=== PATIENT | male | born 1925 | race Caucasian/White ===

== ENCOUNTER 2016-08-08 11:19 | Inpatient (IN) ==
[~2016-08-08 11:19] MED LIST: Aminoglycoside Consult 1 EACH MC ONE
--- NOTE | 2016-08-08 12:20 | Emergency Department Note ---
Disposition Clinical Impression: Elevated troponin, Renal insufficiency, HCAP (healthcare-associated pneumonia) Chest pain Qualifiers: Chest pain type: unspecified Qualified Code(s): R07.9 - Chest pain, unspecified Disposition: Admitted As Inpatient Time of Disposition: 14:35 SOB HPI - General Chief Complaint: ED Shortness of Breath/Dyspnea Stated Complaint: dyspnea,chest pain Time Seen by Provider: 08/08/16 11:41 Source: patient, family Mode of arrival: ambulatory Limitations: no limitations Nursing Notes Reviewed: Yes Vital Signs Reviewed: Yes - History of Present Illness 89-year-old male history of hypertension, diabetes, hyperlipidemia, CAD, COPD on 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 Reports he was going to his optometry appointment at 10 o'clock this morning while walking into the building he felt a sharp chest pain across his lower chess that was nonradiating and with associated shortness of breath and diaphoresis. Denies any radiation up the neck or down the arms. Denies any nausea or vomiting. Pain spontaneously resolved after roughly 50 seconds when he sat down to rest. Since then he has been feeling more shorter breath unable to catch his breath however this is been a progressively ongoing thing over the past several weeks. Reports taking his morning medications which include a baby aspirin. He was recently admitted for NSTEMI 4 weeks without heart catheterization. 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 Reports taking diuretic only when he gains weight. reports 6 lb weight gain over last 3 weeks. - Related Data Home Medications Medication Instructions Recorded Confirmed Albuterol Sulfate [Albuterol 2 puff IH Q4HR PRN 06/02/15 08/08/16 Inhaler] Aspirin 81 mg PO DAILY 06/02/15 08/08/16 Calcitonin Nasal [place] [Miacalcin 1 spray NS DAILY 06/02/15 08/08/16 Nasal [place]] HYDROcodone/Acet 5/325 mg [[place] 1 tab PO QAM 06/02/15 08/08/16 5-325 mg] Insulin ASPART [NovoLOG] 2 - 14 unit SQ TIDWM 06/02/15 08/08/16 Insulin NPH, HUMAN [HumuLIN N] 54 unit SQ BID 06/02/15 08/08/16 Levothyroxine [Synthroid] 50 mcg PO QAM 06/02/15 08/08/16 Metoprolol [Lopressor] 50 mg PO BID 06/02/15 08/08/16 Warfarin [Coumadin] 2.5 mg PO SUMOTUWEFRSA 06/02/15 08/08/16 Acetaminophen/Diphenhydramine 1 tab PO HS 01/12/16 08/08/16 [Acetaminophen Pm Caplet] Warfarin [Coumadin] 5 mg PO TH 01/12/16 08/08/16 Ipratropium/Albuterol Neb [Duoneb] 3 ml IH QID 03/15/16 08/08/16 LORazepam [Ativan] 0.5 mg PO DAILY PRN 03/15/16 08/08/16 Previous Rx's Medication Instructions Recorded Simvastatin [Zocor] 40 mg PO HS #30 tablet 04/29/16 Allergies Allergy/AdvReac Type Severity Reaction Status Date / Time No Known Allergies Allergy Verified 04/27/16 14:23 All systems ED: reviewed and negative except as stated. Constitutional: Denies: fever, chills Cardiovascular: Reports: chest pain Respiratory: Reports: cough, dyspnea Gastrointestinal: Denies: abdominal pain, nausea, vomiting Genitourinary: Denies: urgency, dysuria Musculoskeletal: Denies: neck pain Integumentary: Denies: rash, abrasion Neurological: Denies: headache, weakness Past Medical History - Past Medical History Attestation: Yes The following information was validated with the patient. Source: patient Medical history: Reports: arthritis, atrial fibrillation, CHF, COPD, diabetes, GERD, hyperlipidemia, hypertension, osteoporosis, thyroid disease, other Surgical history: Reports: appendectomy, cholecystectomy, knee replacement Psychiatric history: Reports: anxiety, depression - Social History Smoking Status: Former smoker Smokeless Tobacco Status: No Alcohol use: Reports: occasionally Drug use: Reports: none Physical Exam - General Limitations: no limitations General appearance: alert, in no apparent distress - Head Head exam: atraumatic, normocephalic, normal inspection - Eye Eye exam: Present: normal appearance, PERRL, EOMI - ENT ENT exam: normal exam, normal oropharynx, mucous membranes moist - Neck Neck exam: Present: normal inspection, full ROM, trachea midline - Chest Chest inspection: Present: normal inspection, symmetric chest wall rise. Absent : tenderness - Respiratory Respiratory exam: Present: normal lung sounds bilaterally. Absent: respiratory distress, wheezes, stridor - Cardiovascular Cardiovascular exam: Present: normal rhythm, bradycardia, normal heart sounds, systolic murmur. Absent: diastolic murmur - Abdominal Exam Abdominal exam: Present: soft, Non-Tender, normal bowel sounds, scar (midline), other (ecchymosis epigastric from kindra last year, no changes). Absent: tenderness, distention, guarding, rebound, rigidity - Extremities Exam Extremities exam: Present: normal inspection, full ROM, normal capillary refill. Absent: tenderness, pedal edema, calf tenderness - Neurological Exam Neurological exam: Present: alert, oriented X3 - Psychiatric Psychiatric exam: Present: normal affect, normal mood - Skin Skin exam: Present: warm, dry, intact, normal color. Absent: rash Course Course Narrative: 89-year-old male with a history of CAD, COPD 2 L, atrial fibrillation on coumadin presents with chest pain and shortness of breath. This occurred at 1000 this morning while walking into his optometry appointment. Pain improve with rest. Currently chest pain free. Patients afebrile and no acute distress. His heart rate is 58. Lungs are clear auscultation bilaterally. Heart is regular rate and rhythm. Legs are edematous without much calf tenderness. Reports a recent admission for NSTEMI. ECHO showed normal EF 60-65% with concentric LVH. Chest pain workup initiated. Aspirin taken this morning. - Reevaluation(s) Reevaluation #1: Troponin is elevated 0.14. He has chronic renal insufficiency Cr is 1.3 this is near baseline. He continues to have some anemia as his hemoglobin is 8. He denies any bloody stool, black tarry stools, bloody urine or hemoptysis. He is not septic appearing and does not meet SIRS criteria. His WBC is 7.9. Troponin is likely demand ischemia and will not anticoagulate at this time as she is therapeutic on coumadin 2.9. Chest x-ray reveals some vascular congestion and possible effusion that may also be an infiltrate. BNP is elevated at 414. He was recently admitted 04/28/2016 and stayed longer than 48 hours. Will cover for HCAP at this time but possible could be CHF exacerbation. Will give a dose of Lasix and triple antibiotic broad empiric coverage Levaquin, Zosyn, and Vanc. Will admit to hospitalist for elevated troponin, CHF, possible HCAP, dyspnea. Patient in agreement with plan. No chest pain at this time. Time: 13:30 - Consultations Consultation #1: Spoke with ezekiel Donald to admit for dyspnea, elevated troponin, CHF vs. HCAP, and anemia. No further orders at this time. Time: 14:35 Vital Signs Temperature 97.4 F L 08/08/16 11:33 Pulse Rate 59 08/08/16 11:33 Respiratory Rate 22 08/08/16 11:33 Blood Pressure 99/45 08/08/16 11:33 O2 Sat by Pulse Oximetry 92 L 08/08/16 11:33 Temperature 97.4 F L 08/08/16 11:33 Pulse Rate 65 08/08/16 14:45 Respiratory Rate 16 08/08/16 15:17 Blood Pressure 154/70 08/08/16 15:17 O2 Sat by Pulse Oximetry 97 08/08/16 14:45 Oxygen Delivery Oxygen Delivery Nasal Cannula Shortness of Breath/Dyspnea - MDM Narrative Medical decision making narrative: I examined this patient and my medical decision-making was reviewed with the COMPUTER GAME TESTER/PA/Advanced Practice Nurse/Resident Physician. I agree with the documented findings, disposition and treatment plan as described except to the extent set forth below. Patient presents today was seen by Dr. Huertas and myself , I agree with his evaluation and management plan, supervise The patient's stay , patient comes in today was visiting his eye doctor he had an episode of chest pain is lasted less than a minute he said the pain is different than his previous cardiac chest pains in the past. He states that this pain is not as bad as when he set his previous cardiac events. He is having no pain now. Subtle bit of coughing. Cardiac cardiac workup and probable admission. He is in agreement with this plan. Chest X-Ray 08/08/16 12:00 IMPRESSION: 1. Increased density of the right lower lung zone likely representing combination of atelectasis and/or infiltrate with effusion. 2. Cardiomegaly with vascular congestion. D/ / Robert Franco MD / Robert Franco MD Interpreting Provider: Robert Franco MD 1314 hrs.: Patient's troponins elevated. His creatinines also elevated which is common his hemoglobin is lower. When make sure he has not a GI bleed. He might have a little bit of an infiltrate on his chest x-ray or any blood cultures and treat him. Bring him in to cycle his troponins and rule out ACS. He is in agreement with this plan. We will speak with hospitalist. - Medical Records Medical records reviewed: Yes I reviewed the patient's medical records. - Lab Data Lab results reviewed: Yes I reviewed the patient's lab results. Result diagrams: 08/08/16 12:08 08/08/16 12:08 Lab Results 08/08/16 08/08/16 08/08/16 Range/Units 12:08 12:08 12:08 WBC 7.9 (4.3-11.1) K/mcL RBC 3.37 L (4.19-5.50) M/mcL Hgb 8.8 L (12.9-16.9) g/dL Hct 30.9 L (37.5-50.1) % MCV 91.7 (83.0-100.0) fL MCH 26.1 L (28.0-33.3) pg MCHC 28.5 L (31.6-35.5) g/dL RDW 16.3 H (11.5-14.5) % Plt Count 157 (140-400) K/mcL MPV 9.6 (9.4-12.4) fL Immature Gran % 0.8 (0-4) % Seg Neutrophils % 76.0 % Lymphocytes % 9.7 % Monocytes % 11.4 % Eosinophils % 1.5 % Basophils % 0.6 % Neutrophils # 6.0 (1.6-8.9) K/mcL Lymphocytes # 0.8 (0.6-4.6) K/mcL Monocytes # 0.9 (0.0-1.3) K/mcL Eosinophils # 0.1 (0.0-0.6) K/mcL Basophils # 0.1 (0.0-0.2) K/mcL PT (9.4-12.1) Seconds INR APTT (26.0-36.0) Seconds Sodium 139 (136-145) mEq/L Potassium 4.6 H (3.5-4.5) mEq/L Chloride 105 (98-109) mEq/L Carbon Dioxide 30 H (19-29) mEq/L BUN 31 H (8-26) mg/dL Creatinine 1.33 H (0.72-1.25) mg/dL Est GFR ( Amer) > 60 (> 60) Est GFR (Non-Af Amer) 51 L (> 60) BUN/Creatinine Ratio 23 (6-26) Glucose 137 H (70-99) mg/dL Calculated Osmolality 297 (280-300) Calcium 8.6 (8.6-10.8) mg/dL Troponin I 0.14 H* (0-0.03) ng/mL B-Natriuretic Peptide (0-100) pg/mL 08/08/16 08/08/16 Range/Units 12:08 12:08 WBC (4.3-11.1) K/mcL RBC (4.19-5.50) M/mcL Hgb (12.9-16.9) g/dL Hct (37.5-50.1) % MCV (83.0-100.0) fL MCH (28.0-33.3) pg MCHC (31.6-35.5) g/dL RDW (11.5-14.5) % Plt Count (140-400) K/mcL MPV (9.4-12.4) fL Immature Gran % (0-4) % Seg Neutrophils % % Lymphocytes % % Monocytes % % Eosinophils % % Basophils % % Neutrophils # (1.6-8.9) K/mcL Lymphocytes # (0.6-4.6) K/mcL Monocytes # (0.0-1.3) K/mcL Eosinophils # (0.0-0.6) K/mcL Basophils # (0.0-0.2) K/mcL PT 32.3 H (9.4-12.1) Seconds INR 2.9 APTT 40.2 H (26.0-36.0) Seconds Sodium (136-145) mEq/L Potassium (3.5-4.5) mEq/L Chloride (98-109) mEq/L Carbon Dioxide (19-29) mEq/L BUN (8-26) mg/dL Creatinine (0.72-1.25) mg/dL Est GFR ( Amer) (> 60) Est GFR (Non-Af Amer) (> 60) BUN/Creatinine Ratio (6-26) Glucose (70-99) mg/dL Calculated Osmolality (280-300) Calcium (8.6-10.8) mg/dL Troponin I (0-0.03) ng/mL B-Natriuretic Peptide 414 H (0-100) pg/mL - Radiology Data Radiology results reviewed: Yes I reviewed the patient's radiology results. Chest X-Ray 08/08/16 12:00 IMPRESSION: 1. Increased density of the right lower lung zone likely representing combination of atelectasis and/or infiltrate with effusion. 2. Cardiomegaly with vascular congestion. D/ / Robert Franco MD / Robert Franco MD Interpreting Provider: Robert Franco MD - EKG Data EKG attestation: Yes I reviewed and interpreted this EKG. EKG results narrative: EKG performed 1142 unable to see p waves, uncertain rhythm that appears regular at 59 bpm, right bundle branch block, Q waves in the inferior leads, QRS is wide at 147. No significant ST elevation or depressions. T wave inversion in inferior leads. Compared to an old EKG 04/27/2016 which showed sinus rhythm 94 bpm shows right bundle branch block with the left anterior vesicular block. Repeat EKG performed more discernible p waves, sinus rhythm with 1st degree AV block OR interval 278 with similar wave morphology of RBBB.
[2016-08-08 12:41] LABS: Basophils # 0.1 K/mcL (0.0-0.2); Basophils % 0.6 %; Eosinophils # 0.1 K/mcL (0.0-0.6); Eosinophils % 1.5 %; Hematocrit 30.9 % (37.5-50.1); Hemoglobin 8.8 g/dL (12.9-16.9); Immature Granulocytes % 0.8 % (0-4); Lymphocytes # 0.8 K/mcL (0.6-4.6); Lymphocytes % 9.7 %; Mean Corpuscular HGB Conc 28.5 g/dL (31.6-35.5); Mean Corpuscular Hemoglobin 26.1 pg (28.0-33.3); Mean Corpuscular Volume 91.7 fL (83.0-100.0); Mean Platelet Volume 9.6 fL (9.4-12.4); Monocytes # 0.9 K/mcL (0.0-1.3); Monocytes % 11.4 %; Platelet Count 157 K/mcL (140-400); Red Blood Count 3.37 M/mcL (4.19-5.50); Red Cell Distribution Width 16.3 % (11.5-14.5)
[2016-08-08 12:46] LABS: INR 2.9; Prothrombin Time 32.3 Seconds (9.4-12.1)
[2016-08-08 12:49] LABS: Activated Partial Thrombo Time 40.2 Seconds (26.0-36.0)
[2016-08-08 12:52] LABS: BUN/Creatinine Ratio 23 (6-26); Blood Urea Nitrogen 31 mg/dL (8-26); Calcium 8.6 mg/dL (8.6-10.8); Carbon Dioxide 30 mEq/L (19-29); Chloride 105 mEq/L (98-109); Glucose 137 mg/dL (70-99); Osmolality,Calculated 297 (280-300); Potassium 4.6 mEq/L (3.5-4.5); Sodium 139 mEq/L (136-145); eGFR For African Americans > 60 (> 60); eGFR For Non-African Americans 51 (> 60)
[2016-08-08] MEDS ORDERED: Piperacillin/Tazobactam 4.5 GM in D5% in Water (Mini-Bag+) 100 ML IVPB ONE (13:28)
[2016-08-08] MEDS ORDERED: Levofloxacin 750 MG/150 ML 750 MG/150 ML BAG IVPB ONE (13:28)
[2016-08-08] MEDS ORDERED: Vancomycin 1,750 MG in D5% in Water 500 ML IVPB ONE (13:28)
[2016-08-08] MEDS ORDERED: Furosemide 40 MG/4 ML VIAL IVP ONE (16:11)
--- NOTE | 2016-08-08 18:19 | Internal Med History&Physical ---
Date of Encounter: 08/08/16 Time of Encounter: 18:15 Assessment and Plan (1) Anticoagulated on Coumadin Current visit: Yes Status: Acute Continue Coumadin. Daily INR. (2) Elevated troponin Current visit: Yes Status: Acute Review of previous medical record this is his baseline. I doubt this is an indication of ACS. We will trend troponin. Monitor patient on telemetry. (3) HCAP (healthcare-associated pneumonia) Current visit: Yes Status: Acute He was admitted to the hospital less than 3 months ago and treated for non-ST elevation ID. We will treat him with Zosyn and Levaquin and vancomycin. Follow -up blood cultures. If blood cultures remain negative wall de-escalation in 48 hours. He is at high risk due to IV vancomycin requiring blood level monitoring for toxicity. (4) DVT prophylaxis Current visit: No Status: Acute On Coumadin. (5) Dyspnea on exertion Current visit: No Status: Acute PTOT. Continue oxygen by nasal cannula. (6) CAD (coronary artery disease) Current visit: No Status: Chronic Continue with aspirin and metoprolol and statin. Trend troponin. Monitor on telemetry. Qualifiers: Coronary Disease-Associated Artery/Lesion type: [place] artery [place] vs. transplanted heart: [place] heart Associated angina: without angina Qualified Code(s): I25.10 - Atherosclerotic heart disease of [place] coronary artery without angina pectoris (7) CHF (congestive heart failure) Current visit: No Status: Chronic IV Lasix. Daily weights. Monitor on telemetry. Strict I's and O's. Qualifiers: Congestive heart failure type: diastolic Congestive heart failure chronicity: acute on chronic Qualified Code(s): 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 (8) Chronic a-fib Current visit: No Status: Chronic (9) Chronic kidney disease, stage 3 Current visit: No Status: Chronic Avoid nephrotoxins. Monitor GFR and electrolytes. (10) IDDM (insulin dependent diabetes mellitus) Current visit: No Status: Chronic Internal Medicine - H&P: HPI Chief complaint: Chest pain Admitted From: Emergency Dept Plans for Post Hospital Care: Home History of present illness: Mr. Pan is a 89 year old male with multiple medical comorbidities including chronic hypoxic respiratory failure, obstructive sleep apnea and congestive heart failure who presented to the hospital for evaluation of chest pain. 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 After he sat down he said started having sudden onset anterior chest pain, 5/10 in intensity, sharp in nature associated with shortness of breath. He denies any associated cough chills fever and sputum production. The chest pain resolved within 2 minutes at rest. He presented to the hospital were initial workup was done and revealed it right lower lobe infiltrate concerning for pneumonia. A 10 point review of systems was positive as above also positive for chronic age -related vision impairment and hearing loss, chronic joint pains, chronic lower extremity swelling, negative for dysuria hematuria skin rashes or open wounds allergy symptoms, negative for headache or seizures. Very minor temper of systems was negative. Family history was reviewed and found to be noncontributory due to patient's advanced age. Past Med Surg Social Fam HX - Past Medical History Medical history: arthritis, atrial fibrillation, CHF, COPD, diabetes, GERD, hyperlipidemia, hypertension, osteoporosis, thyroid disease, other Psychiatric history: anxiety, depression - Past Surgical History Surgical History: appendectomy, cholecystectomy, knee replacement - Social History Smoking Status: Former smoker Smokeless Tobacco Status: No Alcohol use: occasionally Drug use: none - Family History Mother Adopted: No Family Member Ethnicity: Non- Living Status: Age at : 72 Cause of : Stroke Hx Family Neuromuscular Disorders: Yes (Stroke at age 70s.) Internal Medicine - H&P: Meds Albuterol Sulfate [Albuterol Inhaler] 2 puff IH Q4HR PRN 06/02/15 [History] Aspirin 81 mg PO DAILY 06/02/15 [History] Calcitonin Nasal [place] [Miacalcin Nasal [place]] 1 spray NS DAILY 06/02/15 [ History] HYDROcodone/Acet 5/325 mg [[place] 5-325 mg] 1 tab PO QAM 06/02/15 [History] Insulin ASPART [NovoLOG] 2 - 14 unit SQ TIDWM 06/02/15 [History] Insulin NPH, HUMAN [HumuLIN N] 54 unit SQ BID 06/02/15 [History] Levothyroxine [Synthroid] 50 mcg PO QAM 06/02/15 [History] Metoprolol [Lopressor] 50 mg PO BID 06/02/15 [History] Warfarin [Coumadin] 2.5 mg PO SUMOTUWEFRSA 06/02/15 [History] Acetaminophen/Diphenhydramine [Acetaminophen Pm Caplet] 1 tab PO HS 01/12/16 [ History] Warfarin [Coumadin] 5 mg PO TH 01/12/16 [History] Ipratropium/Albuterol Neb [Duoneb] 3 ml IH QID 03/15/16 [History] LORazepam [Ativan] 0.5 mg PO DAILY PRN 03/15/16 [History] Simvastatin [Zocor] 40 mg PO HS #30 tablet 04/29/16 [Rx] Allergies No Known Allergies Allergy (Verified 04/27/16 14:23) All Systems PM: A 10-system review of systems was performed and is negative for pertinent findings except as documented above in the HPI. - Constitutional Vitals: Temp Pulse Resp BP Pulse Ox 97.4 F L 65 16 154/70 97 08/08/16 11:33 08/08/16 14:45 08/08/16 15:17 08/08/16 15:17 08/08/16 14:45 General appearance: Present: A&O X 3, no acute distress - Eye Eye exam: Present: PERRL, conjuntiva pink, sclera anicteric Pupils: Present: PERRL - Neck Neck exam general surgery: Present: supple, trachea midline. Absent: lymphadenopathy - Respiratory Respiratory exam: Present: CTAB. Absent: accessory muscle use, rales, rhonchi, wheezes - Cardiovascular Cardiovascular exam: Present: RRR, +S1, +S2, systolic murmur. Absent: diastolic murmur, gallop, rubs - GI/Abdominal GI/Abdominal exam: Present: normal bowel sounds, soft, no peritoneal signs. Absent: distended, tenderness - Extremities Exam Extremities exam: Present: pedal edema, warm, radial pulses palpable and symetrical. Absent: calf tenderness, cyanotic - Neurological Exam Neurological exam: Present: CN II-XII intact, oriented X3, no focal deficits. Absent: pronater drift, facial droop, speech deficit - Skin Skin exam: Present: dry, intact Internal Med - H&P Results - Labs CBC & Chem 7: 08/08/16 12:08 08/08/16 12:08 - EKG Data -: EKG Interpreted by Myself EKG shows normal: sinus rhythm (First degree AV block. Right bundle branch block. Left anterior fascicular block.), ST-T waves
[2016-08-08] MEDS ORDERED: *HR* LORazepam 0.5 MG TABLET PO PRN (18:32)
[2016-08-08] MEDS ORDERED: *HR* OxyCODONE Immed Rel 5 MG TABLET PO PRN (18:33)
[2016-08-08] MEDS ORDERED: Ondansetron 4 MG/2 ML VIAL IVP PRN (18:33)
[2016-08-08] MEDS ORDERED: Dextrose Gel 15 GM PO PRN ×2 (18:39)
[2016-08-08] MEDS ORDERED: *HR* Dextrose 50 % in Water (Syg) 50 ML SYRINGE IVP PRN (18:39)
[2016-08-08] MEDS ORDERED: *HR* Warfarin 2.5 MG TABLET PO SCH (18:45)
[2016-08-08] MEDS ORDERED: Vancomycin (wt based) 1,000 MG VIAL IVPB SCH (19:00)
[2016-08-08] MEDS ORDERED: (Acetaminophen/Diphenhydramine [Acetaminophen Pm Capl PO SCH (21:00)
[2016-08-08] MEDS: Insulin DETEMIR 100 UNIT/ML X5UNITS SQ SCH (21:57)
[2016-08-08] MEDS: Insulin LISPRO 300 UNITS/3 ML VIAL SQ SCH (21:57)
[2016-08-08] MEDS: *HR* Warfarin 2.5 MG TABLET PO SCH (22:24)
[2016-08-08] MEDS: Ipratropium/Albuterol Neb 3 ML IH SCH (22:47)
[2016-08-09] MEDS: Insulin LISPRO 300 UNITS/3 ML VIAL SQ SCH ×5 (00:25→22:14)
[2016-08-09] MEDS: Piperacillin/Tazobactam 3.375 GM in D5% in Water (Mini-Bag+) 100 ML IVPB SCH ×3 (00:27→17:38)
[2016-08-09 01:14] LABS: Basophils % 0.4 %; Eosinophils # 0.2 K/mcL (0.0-0.6); Eosinophils % 2.2 %; Hematocrit 29.3 % (37.5-50.1); Hemoglobin 8.6 g/dL (12.9-16.9); Immature Granulocytes % 0.2 % (0-4); Lymphocytes # 0.6 K/mcL (0.6-4.6); Lymphocytes % 6.9 %; Mean Corpuscular HGB Conc 29.4 g/dL (31.6-35.5); Mean Corpuscular Hemoglobin 26.5 pg (28.0-33.3); Mean Corpuscular Volume 90.2 fL (83.0-100.0); Monocytes % 10.5 %; Neutrophils # 7.3 K/mcL (1.6-8.9); Platelet Count 166 K/mcL (140-400); Red Blood Count 3.25 M/mcL (4.19-5.50); Segmented Neutrophils % 79.8 %
[2016-08-09 01:22] LABS: INR 3.2; Prothrombin Time 35.2 Seconds (9.4-12.1)
[2016-08-09 01:25] LABS: Calcium 8.5 mg/dL (8.6-10.8); Potassium 4.2 mEq/L (3.5-4.5)
[2016-08-09] MEDS ORDERED: Vancomycin 1,750 MG in D5% in Water 500 ML IVPB ONE (02:00)
[2016-08-09] MEDS: Ipratropium/Albuterol Neb 3 ML IH SCH ×4 (04:25→23:27)
--- NOTE | 2016-08-09 06:46 | Electrocardiograph Report ---
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
[2016-08-09] MEDS: Aspirin 81 MG TAB.CHEW PO SCH (07:55)
[2016-08-09] MEDS: Furosemide 40 MG/4 ML VIAL IVP SCH ×2 (07:56→17:39)
[2016-08-09] MEDS: Insulin DETEMIR 100 UNIT/ML X5UNITS SQ SCH ×2 (08:44→22:16)
[2016-08-09] MEDS ORDERED: *HR* HYDROcodone/Acet 5/325 mg TABLET PO SCH (09:00)
--- NOTE | 2016-08-09 09:25 | Internal Med Progress Note ---
<Alvina Avery - Last Filed: 08/09/16 17:00> Date of Encounter: 08/09/16 Time of Encounter: 09:23 - Assessment and plan (1) CAP (community acquired pneumonia) Current Visit: Yes Status: Acute Assessment and plan: Patient presents with increasing SOB with exertion x2 weeks. CXR shows RLL infiltrate. Patient uses CPAP at home, was unable to tolerate BIPAP mask overnight since he normally has the NC mask for his CPAP. He states that the machine is on wheels and too large to have his bring in to use. He is requiring 2-3L O2. Afebrile, VSS. Patient requests PT/OT for possible rehab placement at discharge. BC from 08/08 show no growth to date. 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 transplanted heart: [place] heart Associated angina: without angina Qualified Code(s): I25.10 - Atherosclerotic heart disease of [place] coronary artery without angina pectoris (4) Elevated troponin Current Visit: Yes Status: Acute Assessment and plan: Troponins at baseline from prior. Trend is adynamic. (5) IDDM (insulin dependent diabetes mellitus) Current Visit: No Status: Chronic Assessment and plan: IDDM Plan: -Levemir 25units SQ BID -Humalog medium dose SSC -Accuchecks ACHS -Diabetic Diet (6) Atrial fibrillation Current Visit: No Status: Acute Assessment and plan: Continue coumadin Qualifiers: Atrial fibrillation type: paroxysmal Qualified Code(s): I48.0 - Paroxysmal atrial fibrillation (7) Chronic kidney disease, stage 3 Current Visit: No Status: Chronic Assessment and plan: Stable, continue to monitor BMP. (8) Anticoagulated on Coumadin Current Visit: Yes Status: Acute (9) Melena Current Visit: No Status: Acute Assessment and plan: Patient reports one episode of melena this AM. Denies blood in stool, hematemesis, GERD, hx gastric ulcers. Patient is on coumadin, denies recent use of immodium or pepto bismol. Plan: -Will monitor Hgb -Stool occult -Continue to monitor patient for sx (10) DVT prophylaxis Current Visit: No Status: Acute Assessment and plan: Patient is on coumadin - Subjective Interval history: Patient seen and examined. He is sitting up in the bed in NAD. He states that at rest he does not experience SOB, however when he is up walking and exerting himself his oxygen sats drop to the low 90's and he is SOB. He notes that he had a large bowel movement that was dark black and sticky this morning. He has never had a BM like this before. He denies HX of colon cancer, no gastric ulcers or GERD, no recent use of imodium or pepto bismol. He denies CP, abdominal pain, dysuria, hematuria, bloody stool, nausea, vomiting. - Constitutional Vitals: Temp Pulse Resp BP Pulse Ox 97.9 F 66 16 113/57 98 08/09/16 06:59 08/09/16 06:59 08/09/16 06:59 08/09/16 06:59 08/09/16 06:59 General appearance: Present: cooperative, A&O X 3, pleasant, no acute distress, answers questions appropriately - Head Head exam: Present: atraumatic, normocephalic - Eye Eye exam: Present: EOMI, normal appearance, PERRL, conjuntiva pink, sclera anicteric Pupils: Present: PERRL - Neck Neck exam general surgery: Present: supple, trachea midline. Absent: lymphadenopathy - Respiratory Respiratory exam: Present: rhonchi, wheezes, tachypnea. Absent: accessory muscle use, respiratory distress - Cardiovascular Cardiovascular exam: Present: RRR, +S1, +S2. Absent: diastolic murmur, gallop, rubs, systolic murmur - GI/Abdominal GI/Abdominal exam: Present: normal bowel sounds, soft, no peritoneal signs. Absent: distended, tenderness - Extremities Exam Extremities exam: Present: pedal edema (b/l), warm, radial pulses palpable and symetrical. Absent: calf tenderness, cyanotic - Back Exam Back exam: Present: normal inspection. Absent: CVA tenderness (L), CVA tenderness (R), paraspinal tenderness, rash noted, tenderness - Neurological Exam Neurological exam: Present: alert, oriented X3, no focal deficits. Absent: motor sensory deficit, facial droop, speech deficit - Psychiatric Psychiatric exam: Present: normal affect, normal mood - Skin Skin exam: Present: dry, intact. Absent: diaphoretic Internal Medicine: Result - Labs CBC & Chem 7: 08/09/16 01:06 08/09/16 01:06 Labs: Short CBC 08/09/16 Range/Units 01:06 WBC 9.1 (4.3-11.1) K/mcL Hgb 8.6 L (12.9-16.9) g/dL Hct 29.3 L (37.5-50.1) % Plt Count 166 (140-400) K/mcL Neutrophils # 7.3 (1.6-8.9) K/mcL BMP 08/09/16 01:06 Sodium 138 Potassium 4.2 Chloride 103 Carbon Dioxide 29 BUN 31 H Creatinine 1.37 H Glucose 179 H Calcium 8.5 L Cardiac Enzymes 08/08/16 08/09/16 08/09/16 Range/Units 19:34 01:06 06:32 Troponin I 0.12 H* 0.12 H* 0.12 H* (0-0.03) ng/mL - ABG Interpretation ABG results: PT/INR, D-dimer PT 35.2 Seconds (9.4-12.1) H 08/09/16 01:06 - Diagnostic Studies Chest x-ray Additional comments: Chest X-Ray 08/08/16 12:00 IMPRESSION: 1. Increased density of the right lower lung zone likely representing combination of atelectasis and/or infiltrate with effusion. 2. Cardiomegaly with vascular congestion. D/ / Robert Franco MD / Robert Franco MD Interpreting Provider: Robert Franco MD Consult Discharge Plan - Plan Referrals: Alonzo Kuhn MD [Primary Care Provider] - 08/16/16 1:00 pm (Please follow up as schedule...) <Kang Lima - Last Filed: 08/09/16 17:57> - Assessment and plan (1) Acute on chronic respiratory failure with hypoxia Current Visit: Yes Status: Acute Assessment and plan: Continue oxygen supplementation. (2) Pneumonia Current Visit: Yes Status: Suspected Assessment and plan: On IV abx and stable at this point Qualifiers: Pneumonia type: due to Pneumococcus Laterality: right Lung location: lower lobe of lung Qualified Code(s): J13 - Pneumonia due to Streptococcus pneumoniae (3) Atrial fibrillation Current Visit: No Status: Acute Qualifiers: Atrial fibrillation type: paroxysmal Qualified Code(s): I48.0 - Paroxysmal atrial fibrillation (4) CAD (coronary artery disease) Current Visit: No Status: Chronic Qualifiers: Coronary Disease-Associated Artery/Lesion type: [place] artery [place] vs. transplanted heart: [place] heart Associated angina: without angina Qualified Code(s): I25.10 - Atherosclerotic heart disease of [place] coronary artery without angina pectoris (5) COPD (chronic obstructive pulmonary disease) Current Visit: No Status: Chronic Qualifiers: COPD type: emphysema Emphysema type: panlobular Qualified Code(s): J43.1 - Panlobular emphysema (6) Chronic kidney disease, stage 3 Current Visit: No Status: Chronic (7) Diabetes Current Visit: Yes Status: Acute Qualifiers: Diabetes mellitus type: type 2 Diabetes mellitus complication status: with kidney complications Diabetes mellitus complication detail: with chronic kidney disease Diabetes mellitus detention insulin use: with intermediate project manager use Chronic kidney disease stage: stage 3 (moderate) Qualified Code(s): E11.22 - Type 2 diabetes mellitus with diabetic chronic kidney disease; N18.3 - Chronic kidney disease, stage 3 (moderate); Z79.4 - termination clerk (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 of insulin - Constitutional Vitals: Temp Pulse Resp BP Pulse Ox 98.5 F 73 16 123/56 95 08/09/16 16:04 08/09/16 16:04 08/09/16 16:04 08/09/16 16:04 08/09/16 16:04 Internal Medicine: Result - Labs CBC & Chem 7: 08/09/16 01:06 08/09/16 01:06 Labs: Short CBC 08/09/16 Range/Units 01:06 WBC 9.1 (4.3-11.1) K/mcL Hgb 8.6 L (12.9-16.9) g/dL Hct 29.3 L (37.5-50.1) % Plt Count 166 (140-400) K/mcL Neutrophils # 7.3 (1.6-8.9) K/mcL BMP 08/09/16 01:06 Sodium 138 Potassium 4.2 Chloride 103 Carbon Dioxide 29 BUN 31 H Creatinine 1.37 H Glucose 179 H Calcium 8.5 L Cardiac Enzymes 08/08/16 08/09/16 08/09/16 Range/Units 19:34 01:06 06:32 Troponin I 0.12 H* 0.12 H* 0.12 H* (0-0.03) ng/mL - ABG Interpretation ABG results: PT/INR, D-dimer PT 35.2 Seconds (9.4-12.1) H 08/09/16 01:06 - Attending Attestation I examined this patient and my medical decision-making was reviewed with the Resident Physician on 08/09/16. I agree with the documented findings, disposition and treatment plan as described except to the extent set forth below. Mr. Pan is currently admitted for acute hypoxic resp failure related to pneumonia. He is moderate to high risk due to potential for worsening respiratory status. Mr. Pan is doing OK. He has been up with therapy. Cough present. Still with dyspnea. No GI symptoms Exam Alert. Comfortable Heart reg Lungs with wheeze I/P 1. acute on chronic hypoxic resp failure 2. pneumonia 3. COPD 4 A fib Further diagnoses and plan as above.
[2016-08-09] MEDS ORDERED: Albuterol 2.5 MG/3 ML NEBULIZER IH PRN (11:59)
[2016-08-09] MEDS ORDERED: *HR* HYDROcodone/Acet 5/325 mg TABLET PO PRN (12:00)
[2016-08-09] MEDS ORDERED: *HR* OxyCODONE Immed Rel 5 MG TABLET PO PRN (12:00)
[2016-08-09] MEDS ORDERED: Vancomycin 1,250 MG in D5% in Water 250 ML IVPB SCH ×2 (14:00→20:00)
--- NOTE | 2016-08-09 14:54 | ECHO - Doppler Report ---
Limited Echocardiogram Name: David Pan Date of Study: 08/09/2016 Date: 1925 Ht: 70.0 in Medical Record#: [id number] Age: 89 Wt: 263.0 lb Gender: Male BSA: 2.34 Order #: [id number] Location: [facility] Room #: 2A13 Reading Physician: Monica Wilson DO Transitions Rn Care Coordinator: Marquise Garcia Ordering Physician: Daniel Navarro MD Primary Physician: Alonzo Kuhn MD Indications: Chest pain, Congestive heart failure Impressions: LVEF 65%. Normal left ventricular size and systolic function. Increased LV wall thickness. Left Ventricular Wall Motion: Rest Echo Findings All wall segments showed normal motion. Findings: Study Quality * Technically adequate exam. ECG Findings * Normal sinus rhythm. Left Ventricle * LVEF 65%. * Normal LV chamber size, wall thickness and function. History Hypertension Diabetes Hypercholesteremia Congestive Heart Failure 04/29/2016 a Previous Echo was performed. Measurements: BP: 115/ 57 2D Normal Values IVSd: 1.70 cm 0.6 - 1.0 cm LVIDd: 4.30 cm 3.7 - 5.6 cm LVPWd: 1.70 cm 0.6 - 1.1 cm LVIDs: 3.20 cm 1.5 - 3.6 cm AO: 3.20 cm < 4.0 cm LA: 3.70 cm 2.0 - 4.0cm %FS: 25.60 cm >25 % LA volume: 61 Updated by Monica Wilson on 08/09/2016 2:49:29 PM electronically signed on 08/09/2016 2:50:43 PM with status of Final Wall Motion [place]: 1=Normal, 2=Hypokinesis, 3=Akinesis, 4=Dyskinesis, 5=Aneurysmal, 6=Hyperkinetic, X=Not Visualized (Blank)=Missing
[2016-08-09] MEDS: Isosorbide MONOnitrate (24 HR) 30 MG TAB.ER.24H PO SCH (17:37)
[2016-08-09] MEDS ORDERED: *HR* Warfarin 2.5 MG TABLET PO SCH (18:00)
[2016-08-09] MEDS ORDERED: Warfarin perPT PO PRN (18:00)
[2016-08-10] MEDS: Piperacillin/Tazobactam 3.375 GM in D5% in Water (Mini-Bag+) 100 ML IVPB SCH ×4 (00:21→23:07)
[2016-08-10] MEDS: Ipratropium/Albuterol Neb 3 ML IH SCH ×4 (04:10→22:13)
[2016-08-10 06:37] LABS: Basophils % 0.5 %; Eosinophils # 0.3 K/mcL (0.0-0.6); Eosinophils % 4.5 %; Hematocrit 27.9 % (37.5-50.1); Hemoglobin 8.4 g/dL (12.9-16.9); Immature Granulocytes % 0.5 % (0-4); Lymphocytes # 0.8 K/mcL (0.6-4.6); Lymphocytes % 10.4 %; Mean Corpuscular HGB Conc 30.1 g/dL (31.6-35.5); Mean Corpuscular Hemoglobin 26.6 pg (28.0-33.3); Mean Corpuscular Volume 88.3 fL (83.0-100.0); Mean Platelet Volume 9.8 fL (9.4-12.4); Monocytes # 1.1 K/mcL (0.0-1.3); Monocytes % 14.9 %; Neutrophils # 5.2 K/mcL (1.6-8.9); Platelet Count 153 K/mcL (140-400); Red Blood Count 3.16 M/mcL (4.19-5.50); Red Cell Distribution Width 16.2 % (11.5-14.5); Segmented Neutrophils % 69.2 %
[2016-08-10 06:38] LABS: INR 2.8; Prothrombin Time 30.7 Seconds (9.4-12.1)
[2016-08-10 07:03] LABS: Albumin 2.9 g/dL (3.5-5.0); Albumin/Globulin Ratio 0.9 (1.1-2.2); Bilirubin,Total 0.7 mg/dL (0.2-1.2); Calcium 8.9 mg/dL (8.6-10.8); Globulin 3.3 g/dL (2.4-3.5); Potassium 3.9 mEq/L (3.5-4.5); Total Protein 6.2 g/dL (6.0-8.3)
--- NOTE | 2016-08-10 08:50 | Internal Med Progress Note ---
<Alvina Avery - Last Filed: 08/10/16 13:55> Date of Encounter: 08/10/16 Time of Encounter: 08:47 - Assessment and plan (1) CAP (community acquired pneumonia) Current Visit: Yes Status: Acute Assessment and plan: Patient presents with increasing SOB with exertion x2 weeks. CXR shows RLL infiltrate. Patient uses CPAP at home, was unable to tolerate BIPAP mask overnight since he normally has the NC mask for his CPAP. He states that the machine is on wheels and too large to have his bring in to use. He is requiring 2-3L O2. Afebrile, VSS. Patient requests PT/OT for possible rehab placement at discharge. BC from 08/08 show no growth to date. Discussion with patient regarding his oxygen use. He currently has a cpap and a large oxygen tank that is on wheels. He uses the cpap for oxygen when walking around at home and at night. When he goes out he occasionally brings the large tank on wheels, but he does not wear the oxygen in the car. He also does not wear the oxygen consitently when out and has been increasingly sob for the last 3-4 weeks. He states when he is in the car he gets SOB and rolls the window down , which helps. I had a long discussion with the patient that he needs to be wearing his oxygen at all times. He has qualified for home health and we will have to ensure that he has a portable oxygen tank prior to discharge. Patient has also had large volume of UOP today >1600 by 11 am. Patient has been getting lasix 40mg IV BID. He was last noted to be on a PO dose that was 80mg BID in April. His Creatinine is also rising slightly. 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 transplanted heart: [place] heart Associated angina: without angina Qualified Code(s): I25.10 - Atherosclerotic heart disease of [place] coronary artery without angina pectoris (4) Elevated troponin Current Visit: Yes Status: Acute Assessment and plan: Troponins at baseline from prior. Trend is adynamic. (5) IDDM (insulin dependent diabetes mellitus) Current Visit: No Status: Chronic Assessment and plan: IDDM Plan: -Levemir 25units SQ BID -Humalog medium dose SSC -Accuchecks ACHS -Diabetic Diet (6) Atrial fibrillation Current Visit: No Status: Acute Assessment and plan: Continue coumadin Qualifiers: Atrial fibrillation type: paroxysmal Qualified Code(s): I48.0 - Paroxysmal atrial fibrillation (7) Chronic kidney disease, stage 3 Current Visit: No Status: Chronic Assessment and plan: Stable, continue to monitor BMP. (8) Anticoagulated on Coumadin Current Visit: Yes Status: Acute (9) Melena Current Visit: No Status: Acute Assessment and plan: Patient reports one episode of melena 3 AM and a second yesterday evening. He notes some streaks of bright red blood on toilet paper and a distant hx of hemorrhoids. No recent issues with constipation or straining. Denies blood in stool, hematemesis, GERD, hx gastric ulcers. Patient is on coumadin, denies recent use of immodium or pepto bismol. Plan: -Will monitor Hgb -Stool occult -Continue to monitor patient for sx (10) DVT prophylaxis Current Visit: No Status: Acute Assessment and plan: Patient is on coumadin - Subjective Interval history: Patient seen and examined. He is sitting up in the bed in [facility]. He states that at rest he does not experience SOB, however when he is up walking and exerting himself his oxygen sats drop to the low 90's and he is SOB. He notes that he had a large bowel movement that was dark black and sticky this morning. He has never had a BM like this before. He denies HX of colon cancer, no gastric ulcers or GERD, no recent use of imodium or pepto bismol. He denies CP, abdominal pain, dysuria, hematuria, bloody stool, nausea, vomiting. - Constitutional Vitals: Temp Pulse Resp BP Pulse Ox 97.9 F 85 20 151/67 93 L 08/10/16 07:45 08/10/16 07:45 08/10/16 07:45 08/10/16 07:45 08/10/16 07:45 General appearance: Present: cooperative, A&O X 3, pleasant, no acute distress, answers questions appropriately - Head Head exam: Present: atraumatic, normocephalic - Respiratory Respiratory exam: Present: CTAB. Absent: accessory muscle use, rales, rhonchi, wheezes - Cardiovascular Cardiovascular exam: Present: RRR, +S1, +S2, systolic murmur. Absent: diastolic murmur, gallop, rubs - Extremities Exam Extremities exam: Present: pedal edema, warm, radial pulses palpable and symetrical. Absent: calf tenderness, cyanotic Additional comments: chronic venous stasis changes b/l LE - Neurological Exam Neurological exam: Present: oriented X3, no focal deficits. Absent: pronater drift, facial droop, speech deficit - Psychiatric Psychiatric exam: Present: normal affect, normal mood - Skin Skin exam: Present: dry, intact. Absent: diaphoretic Internal Medicine: Result - Labs CBC & Chem 7: 08/10/16 05:46 08/10/16 05:46 Labs: Short CBC 08/10/16 Range/Units 05:46 WBC 7.5 (4.3-11.1) K/mcL Hgb 8.4 L (12.9-16.9) g/dL Hct 27.9 L (37.5-50.1) % Plt Count 153 (140-400) K/mcL Neutrophils # 5.2 (1.6-8.9) K/mcL BMP 08/10/16 05:46 Sodium 140 Potassium 3.9 Chloride 103 Carbon Dioxide 28 BUN 27 H Creatinine 1.39 H Glucose 94 Calcium 8.9 Liver Function 08/10/16 Range/Units 05:46 Total Bilirubin 0.7 (0.2-1.2) mg/dL AST 18 (5-34) Units/L ALT 13 (0-55) Units/L Alkaline Phosphatase 62 (38-126) Units/L Albumin 2.9 L (3.5-5.0) g/dL - ABG Interpretation ABG results: PT/INR, D-dimer PT 30.7 Seconds (9.4-12.1) H 08/10/16 05:46 Consult Discharge Plan - Plan Referrals: Alonzo Kuhn MD [Primary Care Provider] - 08/16/16 1:00 pm (Please follow up as schedule...) <Kang Lima - Last Filed: 08/10/16 14:44> - Assessment and plan (1) Acute on chronic respiratory failure with hypoxia Current Visit: Yes Status: Acute (2) Pneumonia Current Visit: Yes Status: Suspected Qualifiers: Pneumonia type: due to Pneumococcus Laterality: right Lung location: lower lobe of lung Qualified Code(s): J13 - Pneumonia due to Streptococcus pneumoniae (3) Atrial fibrillation Current Visit: No Status: Acute Qualifiers: Atrial fibrillation type: paroxysmal Qualified Code(s): I48.0 - Paroxysmal atrial fibrillation (4) CAD (coronary artery disease) Current Visit: No Status: Chronic Qualifiers: Coronary Disease-Associated Artery/Lesion type: [place] artery [place] vs. transplanted heart: [place] heart Associated angina: without angina Qualified Code(s): I25.10 - Atherosclerotic heart disease of [place] coronary artery without angina pectoris (5) COPD (chronic obstructive pulmonary disease) Current Visit: No Status: Chronic Qualifiers: COPD type: emphysema Emphysema type: panlobular Qualified Code(s): J43.1 - Panlobular emphysema (6) Chronic kidney disease, stage 3 Current Visit: No Status: Chronic (7) Diabetes Current Visit: Yes Status: Acute Qualifiers: Diabetes mellitus type: type 2 Diabetes mellitus complication status: with kidney complications Diabetes mellitus complication detail: with chronic kidney disease Diabetes mellitus half-way insulin use: with long term care administrator use Chronic kidney disease stage: stage 3 (moderate) Qualified Code(s): E11.22 - Type 2 diabetes mellitus with diabetic chronic kidney disease; N18.3 - Chronic kidney disease, stage 3 (moderate); Z79.4 - skilled nursing (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 of insulin (8) CHF (congestive heart failure) Current Visit: No Status: Chronic Qualifiers: Congestive heart failure type: diastolic Congestive heart failure chronicity: acute on chronic Qualified Code(s): 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 - Constitutional Vitals: Temp Pulse Resp BP Pulse Ox 98.4 F 77 18 109/56 97 08/10/16 10:26 08/10/16 10:26 08/10/16 10:58 08/10/16 10:26 08/10/16 10:58 Internal Medicine: Result - Labs CBC & Chem 7: 08/10/16 05:46 08/10/16 05:46 Labs: Short CBC 08/10/16 Range/Units 05:46 WBC 7.5 (4.3-11.1) K/mcL Hgb 8.4 L (12.9-16.9) g/dL Hct 27.9 L (37.5-50.1) % Plt Count 153 (140-400) K/mcL Neutrophils # 5.2 (1.6-8.9) K/mcL BMP 08/10/16 05:46 Sodium 140 Potassium 3.9 Chloride 103 Carbon Dioxide 28 BUN 27 H Creatinine 1.39 H Glucose 94 Calcium 8.9 Liver Function 08/10/16 Range/Units 05:46 Total Bilirubin 0.7 (0.2-1.2) mg/dL AST 18 (5-34) Units/L ALT 13 (0-55) Units/L Alkaline Phosphatase 62 (38-126) Units/L Albumin 2.9 L (3.5-5.0) g/dL - ABG Interpretation ABG results: PT/INR, D-dimer PT 30.7 Seconds (9.4-12.1) H 08/10/16 05:46 - Attending Attestation I examined this patient and my medical decision-making was reviewed with the Resident Physician on 08/10/16. I agree with the documented findings, disposition and treatment plan as described except to the extent set forth below. Mr. Pan is currently admitted for acute exacerbation of CHF and pneumonia. He remains moderate to high risk due to potential for worsening cardiac and respiratory status. Mr. Pan has been able to be up and walking. He feels his breathing is somewhat better but not baseline. He still has swelling though is beginning to decrease. No GI symptoms. Exam Alert. Comfortable Heart distant but regular Lungs with scant end exp wheeze Edema present bilaterally I/P 1. Acute on chronic diastolic heart failure 2. Pneumonia Further diagnoses and plan as above. Working on d/c planning (Home health at discharge)
[2016-08-10] MEDS: Gabapentin 100 MG CAPSULE PO SCH ×3 (09:00→20:52)
[2016-08-10] MEDS: Isosorbide MONOnitrate (24 HR) 30 MG TAB.ER.24H PO SCH (09:00)
[2016-08-10] MEDS: Furosemide 40 MG/4 ML VIAL IVP SCH (09:00)
[2016-08-10] MEDS: levoFLOXacin 750 MG TABLET PO SCH (09:00)
[2016-08-10] MEDS: Aspirin 81 MG TAB.CHEW PO SCH (09:00)
[2016-08-10] MEDS: Insulin LISPRO 300 UNITS/3 ML VIAL SQ SCH ×4 (09:08→20:47)
[2016-08-10] MEDS: Insulin DETEMIR 100 UNIT/ML X5UNITS SQ SCH ×2 (11:16→20:52)
[2016-08-10 13:11] LABS: % Iron Saturation 10 % (20-55); Iron 37 mcg/dL (65-175); Transferrin 254 mg/dL (174-364)
[2016-08-10 13:31] LABS: Ferritin 70 ng/ml (22-275)
[2016-08-10] MEDS: Furosemide 40 MG TABLET PO SCH (16:41)
[2016-08-10] MEDS: Pantoprazole 40 MG VIAL IVP SCH (17:30)
[2016-08-10] MEDS: *HR* Warfarin 2.5 MG TABLET PO SCH (17:46)
[2016-08-10] MEDS ORDERED: *HR* Warfarin 2.5 MG TABLET PO SCH (18:00)
[2016-08-10] MEDS ORDERED: *HR* Warfarin 2.5 MG TABLET PO ONE (18:00)
--- NOTE | 2016-08-10 19:23 | Electrocardiograph Report ---
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
[2016-08-11] MEDS: Ipratropium/Albuterol Neb 3 ML IH SCH ×4 (04:28→22:20)
[2016-08-11] MEDS: Pantoprazole 40 MG VIAL IVP SCH ×2 (06:02→17:11)
[2016-08-11 07:48] LABS: Basophils % 0.4 %; Eosinophils # 0.3 K/mcL (0.0-0.6); Eosinophils % 4.3 %; Hematocrit 28.6 % (37.5-50.1); Hemoglobin 8.6 g/dL (12.9-16.9); Immature Granulocytes % 0.4 % (0-4); Lymphocytes # 0.8 K/mcL (0.6-4.6); Lymphocytes % 11.3 %; Mean Corpuscular HGB Conc 30.1 g/dL (31.6-35.5); Mean Corpuscular Hemoglobin 26.7 pg (28.0-33.3); Mean Corpuscular Volume 88.8 fL (83.0-100.0); Mean Platelet Volume 9.8 fL (9.4-12.4); Monocytes # 1.1 K/mcL (0.0-1.3); Monocytes % 14.4 %; Platelet Count 154 K/mcL (140-400); Red Blood Count 3.22 M/mcL (4.19-5.50); Red Cell Distribution Width 16.5 % (11.5-14.5); Segmented Neutrophils % 69.2 %
[2016-08-11] MEDS: Isosorbide MONOnitrate (24 HR) 30 MG TAB.ER.24H PO SCH (07:52)
[2016-08-11] MEDS: Piperacillin/Tazobactam 3.375 GM in D5% in Water (Mini-Bag+) 100 ML IVPB SCH ×2 (07:52→15:09)
[2016-08-11] MEDS: Gabapentin 100 MG CAPSULE PO SCH ×3 (07:52→21:25)
[2016-08-11] MEDS: Furosemide 40 MG TABLET PO SCH (07:52)
[2016-08-11] MEDS: Insulin DETEMIR 100 UNIT/ML X5UNITS SQ SCH ×2 (07:53→21:25)
[2016-08-11] MEDS: Insulin LISPRO 300 UNITS/3 ML VIAL SQ SCH ×4 (07:53→21:26)
[2016-08-11 07:54] LABS: INR 2.1; Prothrombin Time 23.5 Seconds (9.4-12.1)
[2016-08-11] MEDS: Aspirin 81 MG TAB.CHEW PO SCH (07:55)
[2016-08-11 08:05] LABS: Calcium 9.1 mg/dL (8.6-10.8)
--- NOTE | 2016-08-11 09:29 | Internal Med Progress Note ---
<Alvina Avery - Last Filed: 08/11/16 10:36> Date of Encounter: 08/11/16 Time of Encounter: 09:27 - Assessment and plan (1) CAP (community acquired pneumonia) Current Visit: Yes Status: Acute Assessment and plan: Patient presents with increasing SOB with exertion x2 weeks. CXR shows RLL infiltrate. Patient uses CPAP at home, was unable to tolerate BIPAP mask overnight since he normally has the NC mask for his CPAP. He states that the machine is on wheels and too large to have his bring in to use. He is requiring 2-3L O2. Afebrile, VSS. Patient requests PT/OT for possible rehab placement at discharge. BC from 08/08 show no growth to date. Discussion with patient regarding his oxygen use. He currently has a cpap and a large oxygen tank that is on wheels. He uses the cpap for oxygen when walking around at home and at night. When he goes out he occasionally brings the large tank on wheels, but he does not wear the oxygen in the car. He also does not wear the oxygen consitently when out and has been increasingly sob for the last 3-4 weeks. He states when he is in the car he gets SOB and rolls the window down , which helps. I had a long discussion with the patient that he needs to be wearing his oxygen at all times. He has qualified for home health and we will have to ensure that he has a portable oxygen tank prior to discharge. Awaiting HH placement and arrangement of oxygen equipment. 08/11 SCr to 1.49. Will decrease lasix to daily and monitor SCr in the AM. 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 transplanted heart: [place] heart Associated angina: without angina Qualified Code(s): I25.10 - Atherosclerotic heart disease of [place] coronary artery without angina pectoris (4) Elevated troponin Current Visit: Yes Status: Acute Assessment and plan: Troponins at baseline from prior. Trend is adynamic. (5) IDDM (insulin dependent diabetes mellitus) Current Visit: No Status: Chronic Assessment and plan: IDDM Plan: -Levemir 25units SQ BID -Humalog medium dose SSC -Accuchecks ACHS -Diabetic Diet (6) Atrial fibrillation Current Visit: No Status: Acute Assessment and plan: Continue coumadin Qualifiers: Atrial fibrillation type: paroxysmal Qualified Code(s): I48.0 - Paroxysmal atrial fibrillation (7) Chronic kidney disease, stage 3 Current Visit: No Status: Chronic Assessment and plan: Stable, continue to monitor BMP. (8) Anticoagulated on Coumadin Current Visit: Yes Status: Acute (9) Melena Current Visit: No Status: Acute Assessment and plan: Patient reports one episode of melena 08/09 AM and a second 08/09 evening. He notes some streaks of bright red blood on toilet paper and a distant hx of hemorrhoids. No recent issues with constipation or straining. Denies blood in stool, hematemesis, GERD, hx gastric ulcers. Patient is on coumadin, denies recent use of immodium or pepto bismol. Denies having BM 08/10. Hat in place to collect sample for stool occult. Patient states he uses a powder every morning that he mixes in his coffee. Plan: -Miralax daily starting this morning. -Will monitor Hgb -Stool occult -Continue to monitor patient for sx (10) DVT prophylaxis Current Visit: No Status: Acute Assessment and plan: Patient is on coumadin - Subjective Interval history: Patient seen and examined. He is sitting up in the bed in NAD. He states that at rest he does not experience SOB, however when he is up walking and exerting himself his oxygen sats drop to the low 90's and he is SOB. He did not have a BM yesterday, but 08/08 and 08/09 he states he had dark black and sticky BMs. He does have a powder he mixes into his coffee every morning to prevent constipation. He denies CP, abdominal pain, dysuria, hematuria, bloody stool, nausea, vomiting. - Constitutional Vitals: Temp Pulse Resp BP Pulse Ox 98.1 F 64 18 107/64 96 08/11/16 07:05 08/11/16 07:05 08/11/16 07:05 08/11/16 07:05 08/11/16 07:05 General appearance: Present: cooperative, A&O X 3, pleasant, no acute distress, answers questions appropriately - Head Head exam: Present: atraumatic, normocephalic - Eye Eye exam: Present: EOMI, PERRL, conjuntiva pink, sclera anicteric Pupils: Present: PERRL - Neck Neck exam general surgery: Present: supple, trachea midline. Absent: lymphadenopathy - Respiratory Respiratory exam: Present: decreased breath sounds, CTAB. Absent: accessory muscle use, rales, respiratory distress, rhonchi, wheezes - Cardiovascular Cardiovascular exam: Present: RRR, +S1, +S2. Absent: diastolic murmur, gallop, rubs, systolic murmur - GI/Abdominal GI/Abdominal exam: Present: normal bowel sounds, soft, no peritoneal signs. Absent: distended, tenderness - Extremities Exam Extremities exam: Present: pedal edema, warm, radial pulses palpable and symetrical. Absent: calf tenderness, cyanotic Additional comments: Chronic venous stasis changes - Neurological Exam Neurological exam: Present: alert, no focal deficits. Absent: motor sensory deficit, facial droop, speech deficit Additional comments: Patient has some difficulty remembering details about events or discussions. Asks the same questions repeatedly. - Psychiatric Psychiatric exam: Present: normal affect, normal mood - Skin Skin exam: Present: dry, erythema (chronic venous stasis changes b/l LE edema), intact. Absent: cyanosis, diaphoretic, rash Internal Medicine: Result - Labs CBC & Chem 7: 08/11/16 06:25 08/11/16 06:25 Labs: Short CBC 08/11/16 Range/Units 06:25 WBC 7.3 (4.3-11.1) K/mcL Hgb 8.6 L (12.9-16.9) g/dL Hct 28.6 L (37.5-50.1) % Plt Count 154 (140-400) K/mcL Neutrophils # 5.0 (1.6-8.9) K/mcL BMP 08/11/16 06:25 Sodium 139 Potassium 4.0 Chloride 101 Carbon Dioxide 30 H BUN 25 Creatinine 1.49 H Glucose 107 H Calcium 9.1 - ABG Interpretation ABG results: PT/INR, D-dimer PT 23.5 Seconds (9.4-12.1) H 08/11/16 06:25 Consult Discharge Plan - Plan Referrals: Alonzo Kuhn MD [Primary Care Provider] - 08/16/16 1:00 pm (Please follow up as schedule...) <Kang Lima - Last Filed: 08/11/16 16:22> - Assessment and plan (1) Acute on chronic respiratory failure with hypoxia Current Visit: Yes Status: Acute (2) Pneumonia Current Visit: Yes Status: Suspected Qualifiers: Pneumonia type: due to Pneumococcus Laterality: right Lung location: lower lobe of lung Qualified Code(s): J13 - Pneumonia due to Streptococcus pneumoniae (3) Atrial fibrillation Current Visit: No Status: Acute Qualifiers: Atrial fibrillation type: paroxysmal Qualified Code(s): I48.0 - Paroxysmal atrial fibrillation (4) CAD (coronary artery disease) Current Visit: No Status: Chronic Qualifiers: Coronary Disease-Associated Artery/Lesion type: [place] artery [place] vs. transplanted heart: [place] heart Associated angina: without angina Qualified Code(s): I25.10 - Atherosclerotic heart disease of [place] coronary artery without angina pectoris (5) COPD (chronic obstructive pulmonary disease) Current Visit: No Status: Chronic Qualifiers: COPD type: emphysema Emphysema type: panlobular Qualified Code(s): J43.1 - Panlobular emphysema (6) Chronic kidney disease, stage 3 Current Visit: No Status: Chronic (7) Diabetes Current Visit: Yes Status: Acute Qualifiers: Diabetes mellitus type: type 2 Diabetes mellitus complication status: with kidney complications Diabetes mellitus complication detail: with chronic kidney disease Diabetes mellitus residential insulin use: with residential use Chronic kidney disease stage: stage 3 (moderate) Qualified Code(s): E11.22 - Type 2 diabetes mellitus with diabetic chronic kidney disease; N18.3 - Chronic kidney disease, stage 3 (moderate); Z79.4 - [facility] (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 of insulin (8) CHF (congestive heart failure) Current Visit: No Status: Chronic Qualifiers: Congestive heart failure type: diastolic Congestive heart failure chronicity: acute on chronic Qualified Code(s): 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 - Constitutional Vitals: Temp Pulse Resp BP Pulse Ox 97.7 F 65 18 122/55 98 08/11/16 11:03 08/11/16 11:03 08/11/16 11:22 08/11/16 11:03 08/11/16 11:22 Internal Medicine: Result - Labs CBC & Chem 7: 08/11/16 06:25 08/11/16 06:25 Labs: Short CBC 08/11/16 Range/Units 06:25 WBC 7.3 (4.3-11.1) K/mcL Hgb 8.6 L (12.9-16.9) g/dL Hct 28.6 L (37.5-50.1) % Plt Count 154 (140-400) K/mcL Neutrophils # 5.0 (1.6-8.9) K/mcL BMP 08/11/16 06:25 Sodium 139 Potassium 4.0 Chloride 101 Carbon Dioxide 30 H BUN 25 Creatinine 1.49 H Glucose 107 H Calcium 9.1 - ABG Interpretation ABG results: PT/INR, D-dimer PT 23.5 Seconds (9.4-12.1) H 08/11/16 06:25 - Attending Attestation I examined this patient and my medical decision-making was reviewed with the Resident Physician on 08/11/16. I agree with the documented findings, disposition and treatment plan as described except to the extent set forth below. Mr. Pan is currently admitted for acute resp failure due to pneumonia and CHF. He remains moderate to high risk due to potential for worsening respiratory symptoms. Mr. Pan seems to have less edema today. No cough. No fever or chills. No GI symptoms. He still has some chest congestion. Exam Alert. comfortable Heart reg Lungs with some rhonchi Abd soft I/P 1. Acute on chronic hypoxic resp failure 2. Pneumonia 3. COPD further diagnoses and plan as above.
[2016-08-11] MEDS ORDERED: *HR* Warfarin 2.5 MG TABLET PO ONE (18:00)
[2016-08-12] MEDS: Piperacillin/Tazobactam 3.375 GM in D5% in Water (Mini-Bag+) 100 ML IVPB SCH ×3 (00:11→15:09)
[2016-08-12] MEDS: Ipratropium/Albuterol Neb 3 ML IH SCH ×4 (04:40→23:37)
[2016-08-12] MEDS: Pantoprazole 40 MG VIAL IVP SCH ×2 (06:41→16:52)
[2016-08-12 07:50] LABS: Basophils % 0.4 %; Eosinophils # 0.4 K/mcL (0.0-0.6); Eosinophils % 4.4 %; Hematocrit 29.1 % (37.5-50.1); Hemoglobin 8.8 g/dL (12.9-16.9); Immature Granulocytes % 0.5 % (0-4); Lymphocytes # 0.7 K/mcL (0.6-4.6); Lymphocytes % 8.9 %; Mean Corpuscular HGB Conc 30.2 g/dL (31.6-35.5); Mean Corpuscular Hemoglobin 27.2 pg (28.0-33.3); Mean Corpuscular Volume 90.1 fL (83.0-100.0); Mean Platelet Volume 9.9 fL (9.4-12.4); Monocytes # 1.1 K/mcL (0.0-1.3); Monocytes % 13.3 %; Neutrophils # 5.8 K/mcL (1.6-8.9); Platelet Count 165 K/mcL (140-400); Red Blood Count 3.23 M/mcL (4.19-5.50); Red Cell Distribution Width 16.6 % (11.5-14.5); Segmented Neutrophils % 72.5 %
[2016-08-12 07:57] LABS: Calcium 9.3 mg/dL (8.6-10.8); Potassium 4.2 mEq/L (3.5-4.5)
[2016-08-12] MEDS ORDERED: Polyethylene Glycol 3350 255 GM POWDER PO ONE ×2 (07:57→16:04)
[2016-08-12 08:03] LABS: Prothrombin Time 21.8 Seconds (9.4-12.1)
[2016-08-12] MEDS: Gabapentin 100 MG CAPSULE PO SCH ×3 (08:03→20:05)
[2016-08-12] MEDS: Isosorbide MONOnitrate (24 HR) 30 MG TAB.ER.24H PO SCH (08:03)
[2016-08-12] MEDS: Insulin LISPRO 300 UNITS/3 ML VIAL SQ SCH ×4 (08:03→21:19)
[2016-08-12] MEDS: Insulin DETEMIR 100 UNIT/ML X5UNITS SQ SCH ×2 (08:04→21:19)
[2016-08-12] MEDS: levoFLOXacin 750 MG TABLET PO SCH (08:06)
[2016-08-12] MEDS: Aspirin 81 MG TAB.CHEW PO SCH (08:09)
--- NOTE | 2016-08-12 08:59 | Internal Med Progress Note ---
<Alvina Avery - Last Filed: 08/12/16 10:53> Date of Encounter: 08/12/16 Time of Encounter: 10:53 - Assessment and plan (1) CAP (community acquired pneumonia) Current Visit: Yes Status: Acute Assessment and plan: Patient presents with increasing SOB with exertion x2 weeks. CXR shows RLL infiltrate. Patient uses CPAP at home, was unable to tolerate BIPAP mask overnight since he normally has the NC mask for his CPAP. He states that the machine is on wheels and too large to have his bring in to use. He is requiring 2-3L O2. Afebrile, VSS. Patient requests PT/OT for possible rehab placement at discharge. BC from 08/08 show no growth to date. Discussion with patient regarding his oxygen use. He currently has a cpap and a large oxygen tank that is on wheels. He uses the cpap for oxygen when walking around at home and at night. When he goes out he occasionally brings the large tank on wheels, but he does not wear the oxygen in the car. He also does not wear the oxygen consistently when out and has been increasingly sob for the last 3-4 weeks. He states when he is in the car he gets SOB and rolls the window down, which helps. I had a long discussion with the patient that he needs to be wearing his oxygen at all times. He has qualified for home health and we will have to ensure that he has a portable oxygen tank prior to discharge. Awaiting HH placement and arrangement of oxygen equipment. 08/12 SCr 1.62. Will stop lasix, 2L fluid restrict and monitor SCr in the AM. 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 transplanted heart: [place] heart Associated angina: without angina Qualified Code(s): I25.10 - Atherosclerotic heart disease of [place] coronary artery without angina pectoris (4) Elevated troponin Current Visit: Yes Status: Acute Assessment and plan: Troponins at baseline from prior. Trend is adynamic. (5) IDDM (insulin dependent diabetes mellitus) Current Visit: No Status: Chronic Assessment and plan: IDDM Plan: -Levemir 25units SQ BID -Humalog medium dose SSC -Accuchecks ACHS -Diabetic Diet (6) Atrial fibrillation Current Visit: No Status: Acute Assessment and plan: Continue coumadin Qualifiers: Atrial fibrillation type: paroxysmal Qualified Code(s): I48.0 - Paroxysmal atrial fibrillation (7) Chronic kidney disease, stage 3 Current Visit: No Status: Chronic Assessment and plan: SCr has been slowly rising the last few days: 1.39>1.49>1.62. Plan: -Stop lasix -2L fluid restriction -CMP in AM (8) Anticoagulated on Coumadin Current Visit: Yes Status: Acute (9) Melena Current Visit: No Status: Acute Assessment and plan: Patient reports one episode of melena 3 AM and a second 08/09 evening. He notes some streaks of bright red blood on toilet paper and a distant hx of hemorrhoids. No recent issues with constipation or straining. Denies blood in stool, hematemesis, GERD, hx gastric ulcers. Patient is on coumadin, denies recent use of immodium or pepto bismol. FOB+, Patient had black tarry stool yesterday Plan: -GI consult -Miralax bowel prep -NPO after midnight -Will monitor Hgb (10) DVT prophylaxis Current Visit: No Status: Acute Assessment and plan: Patient is on coumadin - Subjective Interval history: Patient seen and examined. He is sitting up in the chair sleeping upon entering the room in [facility]. He states that at rest he does not experience SOB, however when he is up walking and exerting himself his oxygen sats drop to the low 90's and he is SOB. He had a black tarry BM yesterday that was FOB+. He notes that he feels tired and worn out today. He denies CP, abdominal pain, dysuria, hematuria, bloody stool, nausea, vomiting. - Constitutional Vitals: Temp Pulse Resp BP Pulse Ox 97.4 F L 69 18 157/72 97 08/12/16 07:03 08/12/16 07:03 08/12/16 07:03 08/12/16 07:03 08/12/16 07:03 General appearance: Present: cooperative, A&O X 3, pleasant, no acute distress, answers questions appropriately - Head Head exam: Present: atraumatic, normocephalic - Eye Eye exam: Present: EOMI, PERRL, conjuntiva pink, sclera anicteric Pupils: Present: PERRL - Respiratory Respiratory exam: Present: decreased breath sounds, rales. Absent: accessory muscle use, rhonchi, wheezes, tachypnea - Cardiovascular Cardiovascular exam: Present: RRR, +S1, +S2. Absent: diastolic murmur, gallop, rubs, systolic murmur - GI/Abdominal GI/Abdominal exam: Present: normal bowel sounds, soft, no peritoneal signs. Absent: distended, tenderness - Extremities Exam Extremities exam: Present: pedal edema, warm, radial pulses palpable and symetrical. Absent: calf tenderness, cyanotic Additional comments: chronic venous stasis changes - Neurological Exam Neurological exam: Present: oriented X3. Absent: facial droop, speech deficit - Psychiatric Psychiatric exam: Present: normal affect, normal mood - Skin Skin exam: Present: dry, erythema (b/l LE with chronic venous stasis changes), warm. Absent: cyanosis, diaphoretic, rash Internal Medicine: Result - Labs CBC & Chem 7: 08/12/16 07:08 08/12/16 07:08 Labs: Short CBC 08/12/16 Range/Units 07:08 WBC 8.0 (4.3-11.1) K/mcL Hgb 8.8 L (12.9-16.9) g/dL Hct 29.1 L (37.5-50.1) % Plt Count 165 (140-400) K/mcL Neutrophils # 5.8 (1.6-8.9) K/mcL BMP 08/12/16 07:08 Sodium 142 Potassium 4.2 Chloride 103 Carbon Dioxide 29 BUN 27 H Creatinine 1.62 H Glucose 127 H Calcium 9.3 - ABG Interpretation ABG results: PT/INR, D-dimer PT 21.8 Seconds (9.4-12.1) H 08/12/16 07:08 Consult Discharge Plan - Plan Referrals: Alonzo Kuhn MD [Primary Care Provider] - 08/16/16 1:00 pm (Please follow up as schedule...) <Kang Lima - Last Filed: 08/12/16 15:12> - Assessment and plan (1) Melena Current Visit: No Status: Acute (2) Acute on chronic respiratory failure with hypoxia Current Visit: Yes Status: Acute (3) Pneumonia Current Visit: Yes Status: Suspected Assessment and plan: De escalate abx today. Qualifiers: Pneumonia type: due to Pneumococcus Laterality: right Lung location: lower lobe of lung Qualified Code(s): J13 - Pneumonia due to Streptococcus pneumoniae (4) Atrial fibrillation Current Visit: No Status: Acute Qualifiers: Atrial fibrillation type: paroxysmal Qualified Code(s): I48.0 - Paroxysmal atrial fibrillation (5) CAD (coronary artery disease) Current Visit: No Status: Chronic Qualifiers: Coronary Disease-Associated Artery/Lesion type: [place] artery [place] vs. transplanted heart: [place] heart Associated angina: without angina Qualified Code(s): I25.10 - Atherosclerotic heart disease of [place] coronary artery without angina pectoris (6) COPD (chronic obstructive pulmonary disease) Current Visit: No Status: Chronic Qualifiers: COPD type: emphysema Emphysema type: panlobular Qualified Code(s): J43.1 - Panlobular emphysema (7) Chronic kidney disease, stage 3 Current Visit: No Status: Chronic (8) Diabetes Current Visit: Yes Status: Acute Qualifiers: Diabetes mellitus type: type 2 Diabetes mellitus complication status: with kidney complications Diabetes mellitus complication detail: with chronic kidney disease Diabetes mellitus shelter insulin use: with shelter use Chronic kidney disease stage: stage 3 (moderate) Qualified Code(s): E11.22 - Type 2 diabetes mellitus with diabetic chronic kidney disease; N18.3 - Chronic kidney disease, stage 3 (moderate); Z79.4 - [facility] (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 of insulin (9) CHF (congestive heart failure) Current Visit: No Status: Chronic Qualifiers: Congestive heart failure type: diastolic Congestive heart failure chronicity: acute on chronic Qualified Code(s): 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 - Constitutional Vitals: Temp Pulse Resp BP Pulse Ox 97.4 F L 66 18 114/61 96 08/12/16 11:46 08/12/16 11:46 08/12/16 11:46 08/12/16 11:46 08/12/16 11:46 Internal Medicine: Result - Labs CBC & Chem 7: 08/12/16 07:08 08/12/16 07:08 Labs: Short CBC 08/12/16 Range/Units 07:08 WBC 8.0 (4.3-11.1) K/mcL Hgb 8.8 L (12.9-16.9) g/dL Hct 29.1 L (37.5-50.1) % Plt Count 165 (140-400) K/mcL Neutrophils # 5.8 (1.6-8.9) K/mcL BMP 08/12/16 07:08 Sodium 142 Potassium 4.2 Chloride 103 Carbon Dioxide 29 BUN 27 H Creatinine 1.62 H Glucose 127 H Calcium 9.3 - ABG Interpretation ABG results: PT/INR, D-dimer PT 21.8 Seconds (9.4-12.1) H 08/12/16 07:08 - Attending Attestation I examined this patient and my medical decision-making was reviewed with the Resident Physician on 08/12/16. I agree with the documented findings, disposition and treatment plan as described except to the extent set forth below. Mr Pan is currently admitted for pneumonia and exac CHF. He also has been having dark stool and is guiac positive. He is high risk due to respiratory issues and potential for significant bleeding. Mr. Pan feels OK at this time. He is up and moving in his room. His stool is still dark and tarry and is guiac positive. No abd pain noted. Exam Alert. Comfortable Heart reg No wheeze. Some rhonchi Abd soft I/P 1. Pneumonia - on IV abx. Will deescalate today. 2. Acute exac CHF. - diuresed. Creatinine increased Will hold Lasix and fluid restrict 3. Melena - prep for GI work up. Further diagnoses and plan as above.
[2016-08-12] MEDS ORDERED: Furosemide 40 MG TABLET PO SCH (09:00)
[2016-08-12] MEDS: Acetaminophen 325 MG TABLET PO PRN (15:08)
[2016-08-12] MEDS ORDERED: *HR* Warfarin 2.5 MG TABLET PO ONE (18:00)
[2016-08-13] MEDS: Acetaminophen 325 MG TABLET PO PRN ×2 (01:10→17:16)
[2016-08-13] MEDS: Ipratropium/Albuterol Neb 3 ML IH SCH ×4 (04:19→23:08)
[2016-08-13 05:43] LABS: Basophils % 0.3 %; Eosinophils # 0.3 K/mcL (0.0-0.6); Hematocrit 26.5 % (37.5-50.1); Hemoglobin 7.9 g/dL (12.9-16.9); Immature Granulocytes % 0.5 % (0-4); Lymphocytes # 0.9 K/mcL (0.6-4.6); Lymphocytes % 13.3 %; Mean Corpuscular HGB Conc 29.8 g/dL (31.6-35.5); Mean Corpuscular Hemoglobin 26.7 pg (28.0-33.3); Mean Corpuscular Volume 89.5 fL (83.0-100.0); Mean Platelet Volume 9.1 fL (9.4-12.4); Monocytes % 14.7 %; Neutrophils # 4.4 K/mcL (1.6-8.9); Platelet Count 143 K/mcL (140-400); Red Blood Count 2.96 M/mcL (4.19-5.50); Red Cell Distribution Width 16.6 % (11.5-14.5); Segmented Neutrophils % 67.2 %
[2016-08-13 05:50] LABS: INR 2.3; Prothrombin Time 25.5 Seconds (9.4-12.1)
[2016-08-13 05:53] LABS: Activated Partial Thrombo Time 34.4 Seconds (26.0-36.0)
[2016-08-13 05:59] LABS: Alanine Aminotransferase 10 Units/L (0-55); Albumin/Globulin Ratio 0.9 (1.1-2.2); Alkaline Phosphatase 50 Units/L (38-126); Aspartate Amino Transferase 20 Units/L (5-34); BUN/Creatinine Ratio 21 (6-26); Bilirubin,Total 0.7 mg/dL (0.2-1.2); Blood Urea Nitrogen 27 mg/dL (8-26); Calcium 8.8 mg/dL (8.6-10.8); Carbon Dioxide 30 mEq/L (19-29); Chloride 103 mEq/L (98-109); Globulin 3.3 g/dL (2.4-3.5); Glucose 73 mg/dL (70-99); Osmolality,Calculated 292 (280-300); Potassium 3.9 mEq/L (3.5-4.5); Sodium 139 mEq/L (136-145); Total Protein 6.3 g/dL (6.0-8.3); eGFR For African Americans > 60 (> 60); eGFR For Non-African Americans 52 (> 60)
[2016-08-13] MEDS: Pantoprazole 40 MG VIAL IVP SCH (06:24)
[2016-08-13] MEDS: Insulin LISPRO 300 UNITS/3 ML VIAL SQ SCH ×4 (08:02→20:45)
--- NOTE | 2016-08-13 08:25 | Internal Med Progress Note ---
Addendum entered and electronically signed by Alvina Avery DO 08/13/16 09 :13: Patient discussed with Dr. Sharma. He would like the patient to have 2 Units FFP this morning, recheck INR. He would like an INR of 1.3, or less than 2. Clear liquid diet. He will most likely scope the patient this afternoon. Original Note: <Alvina Avery - Last Filed: 08/13/16 08:22> Date of Encounter: 08/13/16 Time of Encounter: 08:23 - Assessment and plan (1) CAP (community acquired pneumonia) Current Visit: Yes Status: Acute Assessment and plan: Patient presents with increasing SOB with exertion x2 weeks. CXR shows RLL infiltrate. Patient uses CPAP at home, was unable to tolerate BIPAP mask overnight since he normally has the NC mask for his CPAP. He states that the machine is on wheels and too large to have his bring in to use. He is requiring 2-3L O2. Afebrile, VSS. Patient requests PT/OT for possible rehab placement at discharge. BC from 08/08 show no growth to date. Discussion with patient regarding his oxygen use. He currently has a cpap and a large oxygen tank that is on wheels. He uses the cpap for oxygen when walking around at home and at night. When he goes out he occasionally brings the large tank on wheels, but he does not wear the oxygen in the car. He also does not wear the oxygen consistently when out and has been increasingly sob for the last 3-4 weeks. He states when he is in the car he gets SOB and rolls the window down, which helps. I had a long discussion with the patient that he needs to be wearing his oxygen at all times. He has qualified for home health and we will have to ensure that he has a portable oxygen tank prior to discharge. Awaiting HH placement and arrangement of oxygen equipment. 08/12 SCr 1.62. Will stop lasix, 2L fluid restrict 08/13: Patient had FOB+ with Hgb change overnight to 7.9 from 8.8. SCr 1.31. Patient had bowel prep yesterday evening and has been NPO after midnight. GI to see and evaluate today. 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 transplanted heart: [place] heart Associated angina: without angina Qualified Code(s): I25.10 - Atherosclerotic heart disease of [place] coronary artery without angina pectoris (4) Elevated troponin Current Visit: Yes Status: Acute Assessment and plan: Troponins at baseline from prior. Trend is adynamic. (5) IDDM (insulin dependent diabetes mellitus) Current Visit: No Status: Chronic Assessment and plan: IDDM Plan: -Levemir 25units SQ BID -Humalog medium dose SSC -Accuchecks ACHS -Diabetic Diet (6) Atrial fibrillation Current Visit: No Status: Acute Assessment and plan: Continue coumadin Qualifiers: Atrial fibrillation type: paroxysmal Qualified Code(s): I48.0 - Paroxysmal atrial fibrillation (7) Chronic kidney disease, stage 3 Current Visit: No Status: Chronic Assessment and plan: SCr has been slowly rising the last few days: 1.39>1.49>1.62. 07/16 SCr 1.31, improved with fluid restriction and stopping lasix Plan: -2L fluid restriction -CMP in AM (8) Anticoagulated on Coumadin Current Visit: Yes Status: Acute (9) Melena Current Visit: No Status: Acute Assessment and plan: Patient reports one episode of melena 08/09 AM and a second 08/09 evening. He notes some streaks of bright red blood on toilet paper and a distant hx of hemorrhoids. No recent issues with constipation or straining. Denies blood in stool, hematemesis, GERD, hx gastric ulcers. Patient is on coumadin, denies recent use of immodium or pepto bismol. FOB+, Patient had black tarry stool 08/11 Patient has had bowel prep last evening, plan to have GI see today for further evaluation. 08/13 Hgb down to 7.9 from 8.8 Plan: -GI consult -Will monitor Hgb (10) DVT prophylaxis Current Visit: No Status: Acute Assessment and plan: Patient is on coumadin - Subjective Interval history: Patient seen and examined. He is lying in bed sleeping. No issues noted from staff overnight. - Constitutional Vitals: Temp Pulse Resp BP Pulse Ox 97.9 F 72 19 114/52 96 08/13/16 07:54 08/13/16 07:54 08/13/16 07:54 08/13/16 07:54 08/13/16 07:54 General appearance: Present: cooperative, A&O X 3, pleasant, no acute distress, obese, answers questions appropriately - Head Head exam: Present: atraumatic, normocephalic - Eye Eye exam: Present: PERRL, conjuntiva pink, sclera anicteric Pupils: Present: PERRL - Respiratory Respiratory exam: Present: decreased breath sounds, rales. Absent: accessory muscle use, respiratory distress, tachypnea - Cardiovascular Cardiovascular exam: Present: RRR, +S1, +S2, systolic murmur. Absent: diastolic murmur, gallop, rubs - GI/Abdominal GI/Abdominal exam: Present: normal bowel sounds, soft, no peritoneal signs. Absent: distended, tenderness - Extremities Exam Extremities exam: Present: pedal edema (b/l LE edema with chronic venous stasis changes), warm, radial pulses palpable and symetrical. Absent: calf tenderness , cyanotic - Skin Skin exam: Present: dry, warm. Absent: cyanosis, diaphoretic Additional comments: chronic venous stasis changes in b/l LE Internal Medicine: Result - Labs CBC & Chem 7: 08/13/16 05:17 08/13/16 05:17 Labs: Short CBC 08/13/16 Range/Units 05:17 WBC 6.5 (4.3-11.1) K/mcL Hgb 7.9 L (12.9-16.9) g/dL Hct 26.5 L (37.5-50.1) % Plt Count 143 (140-400) K/mcL Neutrophils # 4.4 (1.6-8.9) K/mcL BMP 08/13/16 05:17 Sodium 139 Potassium 3.9 Chloride 103 Carbon Dioxide 30 H BUN 27 H Creatinine 1.31 H Glucose 73 Calcium 8.8 Liver Function 08/13/16 Range/Units 05:17 Total Bilirubin 0.7 (0.2-1.2) mg/dL AST 20 (5-34) Units/L ALT 10 (0-55) Units/L Alkaline Phosphatase 50 (38-126) Units/L Albumin 3.0 L (3.5-5.0) g/dL - ABG Interpretation ABG results: PT/INR, D-dimer PT 25.5 Seconds (9.4-12.1) H 08/13/16 05:17 Consult Discharge Plan - Plan Referrals: Alonzo Kuhn MD [Primary Care Provider] - 08/16/16 1:00 pm (Please follow up as schedule...) <Kang Lima - Last Filed: 08/13/16 14:08> - Assessment and plan (1) Acute on chronic respiratory failure with hypoxia Current Visit: Yes Status: Acute Assessment and plan: Wean oxygen as able. Only has oxygen bleed in with cpap at home so will need to qualify before discharge. (2) Pneumonia Current Visit: Yes Status: Suspected Qualifiers: Pneumonia type: due to Pneumococcus Laterality: right Lung location: lower lobe of lung Qualified Code(s): J13 - Pneumonia due to Streptococcus pneumoniae (3) Melena Current Visit: No Status: Acute (4) Atrial fibrillation Current Visit: No Status: Acute Qualifiers: Atrial fibrillation type: paroxysmal Qualified Code(s): I48.0 - Paroxysmal atrial fibrillation (5) CAD (coronary artery disease) Current Visit: No Status: Chronic Qualifiers: Coronary Disease-Associated Artery/Lesion type: [place] artery [place] vs. transplanted heart: [place] heart Associated angina: without angina Qualified Code(s): I25.10 - Atherosclerotic heart disease of [place] coronary artery without angina pectoris (6) COPD (chronic obstructive pulmonary disease) Current Visit: No Status: Chronic Qualifiers: COPD type: emphysema Emphysema type: panlobular Qualified Code(s): J43.1 - Panlobular emphysema (7) Chronic kidney disease, stage 3 Current Visit: No Status: Chronic (8) Diabetes Current Visit: Yes Status: Acute Qualifiers: Diabetes mellitus type: type 2 Diabetes mellitus complication status: with kidney complications Diabetes mellitus complication detail: with chronic kidney disease Diabetes mellitus oil heaterman insulin use: with chcf use Chronic kidney disease stage: stage 3 (moderate) Qualified Code(s): E11.22 - Type 2 diabetes mellitus with diabetic chronic kidney disease; N18.3 - Chronic kidney disease, stage 3 (moderate); Z79.4 - assisted (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 of insulin (9) CHF (congestive heart failure) Current Visit: No Status: Chronic Qualifiers: Congestive heart failure type: diastolic Congestive heart failure chronicity: acute on chronic Qualified Code(s): 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 - Constitutional Vitals: Temp Pulse Resp BP Pulse Ox 98.2 F 69 18 126/61 96 08/13/16 13:01 08/13/16 13:29 08/13/16 13:29 08/13/16 13:29 08/13/16 13:29 Internal Medicine: Result - Labs CBC & Chem 7: 08/13/16 05:17 08/13/16 05:17 Labs: Short CBC 08/13/16 Range/Units 05:17 WBC 6.5 (4.3-11.1) K/mcL Hgb 7.9 L (12.9-16.9) g/dL Hct 26.5 L (37.5-50.1) % Plt Count 143 (140-400) K/mcL Neutrophils # 4.4 (1.6-8.9) K/mcL BMP 08/13/16 05:17 Sodium 139 Potassium 3.9 Chloride 103 Carbon Dioxide 30 H BUN 27 H Creatinine 1.31 H Glucose 73 Calcium 8.8 Liver Function 08/13/16 Range/Units 05:17 Total Bilirubin 0.7 (0.2-1.2) mg/dL AST 20 (5-34) Units/L ALT 10 (0-55) Units/L Alkaline Phosphatase 50 (38-126) Units/L Albumin 3.0 L (3.5-5.0) g/dL - ABG Interpretation ABG results: PT/INR, D-dimer PT 19.4 Seconds (9.4-12.1) H 08/13/16 12:58 - Attending Attestation I examined this patient and my medical decision-making was reviewed with the Resident Physician on 08/13/16. I agree with the documented findings, disposition and treatment plan as described except to the extent set forth below. Mr. Pan is currently admitted for hypoxic resp failure due to pneumonia/CHF. He is also having melena and anemia. He is high risk due to potential for worsening respiratory and hematologic status. Mr. Pan is feeling OK but was up a lot last night. Having a lot more coughing last night as well. No CP. No abd pain. Still with dark stool. Plan for endoscopy today if can be arranged. Exam Alert. Comfortable this AM Heart not tachy Lungs with rhonchi bilaterally Abd soft Edema somewhat better I/P 1. Hypoxic resp failure 2. Melena and anemia Further diagnoses and plan as above.
[2016-08-13] MEDS: Isosorbide MONOnitrate (24 HR) 30 MG TAB.ER.24H PO SCH (09:53)
[2016-08-13] MEDS: Aspirin 81 MG TAB.CHEW PO SCH (09:53)
[2016-08-13] MEDS: Gabapentin 100 MG CAPSULE PO SCH ×3 (09:53→20:45)
[2016-08-13] MEDS ORDERED: *HR* Propofol 500 MG/50 ML BOTTLE IVC ONE (10:08)
[2016-08-13] MEDS: Insulin DETEMIR 100 UNIT/ML X5UNITS SQ SCH ×2 (10:55→20:45)
--- NOTE | 2016-08-13 12:21 | Gastroenterology Consult Note ---
<QuesadaWarren Clemens - Last Filed: 08/13/16 12:18> Date of Encounter: 08/13/16 Time of Encounter: 10:30 - Assessment and plan (1) Melena Current Visit: No Status: Acute Assessment and plan: Pt reported several episodes of melena, FOBT positive. Plan for EGD and colonoscopy today. Keep NPO. (2) Anemia Current Visit: Yes Status: Acute Assessment and plan: Hgb 7.9. Continue to monitor CBC and transfuse PRBC as needed. Plan for EGD and colonoscopy today. Keep NPO. 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 (4) Elevated troponin Current Visit: Yes Status: Acute (5) Chronic kidney disease, stage 3 Current Visit: No Status: Chronic (6) CAP (community acquired pneumonia) Current Visit: Yes Status: Acute Assessment and plan: Management per primary team. - Time Spent With Patient Total time spent is greater than 50% in coordination of care (as documented) at patient's floor/unit and/or counseling patient: GI History of Present Illness - Data of Consult Patient: new to practice Consult date: 08/13/16 Requesting Physician: Kang Lima DO - Consult Narrative Reason for consult: FOBT positive History of present illness: Mr. Pan is a 89 year old male with PMHx of arthritis, Afib-on Coumadin, CHF, COPD, DM, GERD, HLD, HTN who presented due to chest pain which resolved within 2 minutes of rest. CXR revealed a right lower lobe infiltrate concerning for PNA. He had a large BM that was dark black and sticky on 08/08 and 08/09. No history of colon cancer, gastric ulcers, or GERD. He denies hematuria, nausea, or vomiting. He does note BRBPR with wiping. FOBT was positive on 08/11. Procedures: Colonoscopy 10/20/2003 Dr. Tolbert with hyperplastic polyps. NSAIDs: ASA Anticoagulation: Coumadin Past Med Surg Social Fam HX - Past Medical History Medical history: arthritis, atrial fibrillation, CHF, COPD, diabetes, GERD, hyperlipidemia, hypertension, osteoporosis, thyroid disease, other Psychiatric history: anxiety, depression - Past Surgical History Surgical History: appendectomy, cholecystectomy, knee replacement - Social History Smoking Status: Former smoker Smokeless Tobacco Status: No Alcohol use: occasionally Drug use: none - Family History Mother Adopted: No Family Member Ethnicity: Non- Living Status: Age at : 72 Cause of : Stroke Hx Family Neuromuscular Disorders: Yes (Stroke at age 70s.) - Gastrointestinal Gastrointestinal: Present: as per HPI - Constitutional Constitutional: as per HPI - EENT Eyes: as per HPI Ears: Present: as per HPI Nose, mouth and throat: Present: as per HPI - Cardiovascular Cardiovascular ROS: Present: as per HPI - Respiratory Respiratory IM: Present: as per HPI - Genitourinary Genitourinary: Absent: change in color, Urinary frequency - Neurological ROS Neurological GI: Present: as per HPI - Hematologic/Lymphatic Hematologic/Lymphatic pediatric: Present: as per HPI - Musculoskeletal Musculoskeletal ROS GI: Present: as per HPI - Integumentary Integumentary GI: Present: as per HPI - Psychiatric ROS Psychiatric GI: Present: as per HPI - Endocrine Endocrine IM: Present: as per HPI - Constitutional Vitals: Temp Pulse Resp BP Pulse Ox 98.3 F 67 14 103/55 95 08/13/16 12:01 08/13/16 12:01 08/13/16 12:01 08/13/16 12:01 08/13/16 12:01 General appearance: Present: cooperative, A&O X 3, no acute distress, answers questions appropriately - Head Head exam: Present: atraumatic, normocephalic - Eye Eye exam: Present: normal appearance, sclera anicteric - ENT ENT exam: Present: mucous membranes moist - Neck Neck exam general surgery: Present: normal inspection, trachea midline - Respiratory Respiratory exam: Present: decreased breath sounds, rales - Cardiovascular Cardiovascular exam: Present: RRR, +S1, +S2 - GI/Abdominal GI/Abdominal exam: Present: soft, no peritoneal signs. Absent: distended, firm , guarding, tenderness - Rectal Rectal exam: Present: deferred - Extremities Exam Extremities exam: Present: warm - Neurological Exam Neurological exam: Present: no focal deficits - Psychiatric Psychiatric exam: Present: normal affect, normal mood - Skin Skin exam: Present: dry, intact, normal color, warm Results - Labs CBC & Chem 7: 08/13/16 05:17 08/13/16 05:17 Labs: Last Result Calcium 8.8 mg/dL (8.6-10.8) 08/13/16 05:17 Iron 37 mcg/dL (65-175) L 08/10/16 12:33 % Saturation 10 % (20-55) L 08/10/16 12:33 Transferrin 254 mg/dL (174-364) 08/10/16 12:33 Ferritin 70 ng/ml (22-275) 08/10/16 12:33 Troponin I 0.12 ng/mL (0-0.03) H* 08/09/16 06:32 Stool Occult Blood Positive (Negative) A 08/11/16 22:00 Entire Visit Hgb 7.9 g/dL (12.9-16.9) L 08/13/16 05:17 Hct 26.5 % (37.5-50.1) L 08/13/16 05:17 PT 25.5 Seconds (9.4-12.1) H 08/13/16 05:17 Ferritin 70 ng/ml (22-275) 08/10/16 12:33 Total Bilirubin 0.7 mg/dL (0.2-1.2) 08/13/16 05:17 AST 20 Units/L (5-34) 08/13/16 05:17 ALT 10 Units/L (0-55) 08/13/16 05:17 - ABG ABG results: PT/INR, D-dimer PT 25.5 Seconds (9.4-12.1) H 08/13/16 05:17 Consult Discharge Plan - Plan Referrals: Alonzo Kuhn MD [Primary Care Provider] - 08/16/16 1:00 pm (Please follow up as schedule...) <Kimberley Sharma - Last Filed: 08/13/16 21:52> Time of Encounter: 14:00 - Time Spent With Patient Total time spent is greater than 50% in coordination of care (as documented) at patient's floor/unit and/or counseling patient: GI History of Present Illness - Data of Consult Requesting Physician: Kang Lima DO - Consult Narrative History of present illness: Mr. Pan is a 89 year old male - Constitutional Vitals: Temp Pulse Resp BP Pulse Ox 98.6 F 76 20 128/53 96 08/13/16 18:34 08/13/16 18:34 08/13/16 18:34 08/13/16 18:34 08/13/16 18:34 Results - Labs CBC & Chem 7: 08/13/16 05:17 08/13/16 05:17 Labs: Last Result Calcium 8.8 mg/dL (8.6-10.8) 08/13/16 05:17 Iron 37 mcg/dL (65-175) L 08/10/16 12:33 % Saturation 10 % (20-55) L 08/10/16 12:33 Transferrin 254 mg/dL (174-364) 08/10/16 12:33 Ferritin 70 ng/ml (22-275) 08/10/16 12:33 Troponin I 0.12 ng/mL (0-0.03) H* 08/09/16 06:32 Stool Occult Blood Positive (Negative) A 08/11/16 22:00 Entire Visit Hgb 7.9 g/dL (12.9-16.9) L 08/13/16 05:17 Hct 26.5 % (37.5-50.1) L 08/13/16 05:17 PT 19.4 Seconds (9.4-12.1) H 08/13/16 12:58 Ferritin 70 ng/ml (22-275) 08/10/16 12:33 Total Bilirubin 0.7 mg/dL (0.2-1.2) 08/13/16 05:17 AST 20 Units/L (5-34) 08/13/16 05:17 ALT 10 Units/L (0-55) 08/13/16 05:17 - ABG ABG results: PT/INR, D-dimer PT 19.4 Seconds (9.4-12.1) H 08/13/16 12:58 - Impressions Impressions Chest X-Ray 08/13/16 14:10 IMPRESSION: 1. Stable central pulmonary venous congestion. 2. Stable asymmetric effusions and lung base consolidation more prominent on the right. D/ / 08/13/2016 19:56:00 Andi Ivey MD / lizz Interpreting Provider: Andi Ivey MD Chest X-Ray 08/13/16 15:22 IMPRESSION: Persistent pulmonary vascular congestion with increasing right pleural fluid and basilar airspace disease. Congestive heart failure is suspected with increasing right pleural fluid and and basilar compressive atelectasis. Underlying right basilar pneumonia is not excluded. D/ / David Sandoval MD / David Sandoval MD Interpreting Provider: David Sandoval MD - Attending Attestation I examined this patient and my medical decision-making was reviewed with the DEDICATED INTERMODAL TRUCK DRIVER/PA/Advanced Practice Nurse/Resident Physician. I agree with the documented findings, disposition and treatment plan as described except to the extent set forth below.
[2016-08-13 13:10] LABS: INR 1.8; Prothrombin Time 19.4 Seconds (9.4-12.1)
--- NOTE | 2016-08-13 13:52 | Anesthesia Evaluation PreOp ---
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: Denies Any Significant HX Other Medical History: Renal (CKD), Diabetes Type II (insulin dependent), Thyroid Alcohol Use: occasionally Drug use: none Medications and Allergies Albuterol Sulfate [Albuterol Inhaler] 2 puff IH Q4HR PRN 06/02/15 [History] Aspirin 81 mg PO DAILY 06/02/15 [History] Calcitonin Nasal [place] [Miacalcin Nasal [place]] 1 spray NS DAILY 06/02/15 [ History] HYDROcodone/Acet 5/325 mg [[place] 5-325 mg] 1 tab PO QAM 06/02/15 [History] Insulin ASPART [NovoLOG] 2 - 14 unit SQ TIDWM 06/02/15 [History] Insulin NPH, HUMAN [HumuLIN N] 54 unit SQ BID 06/02/15 [History] Levothyroxine [Synthroid] 50 mcg PO QAM 06/02/15 [History] Metoprolol [Lopressor] 50 mg PO BID 06/02/15 [History] Warfarin [Coumadin] 2.5 mg PO [id number] 06/02/15 [History] Acetaminophen/Diphenhydramine [Acetaminophen Pm Caplet] 1 tab PO HS 01/12/16 [ History] Warfarin [Coumadin] 5 mg PO TH 01/12/16 [History] Ipratropium/Albuterol Neb [Duoneb] 3 ml IH QID 03/15/16 [History] LORazepam [Ativan] 0.5 mg PO DAILY PRN 03/15/16 [History] Simvastatin [Zocor] 40 mg PO HS #30 tablet 04/29/16 [Rx] Isosorbide MONOnitrate (24 HR) [Imdur] 30 mg PO DAILY 08/09/16 [History] Allergies No Known Allergies Allergy (Verified 04/27/16 14:23) - Meds/Allergy Pre-op Review Medications Reviewed: Yes Allergies Reviewed: Yes Beta Blockers on Current Med List: Yes Anesthesia Results - Labs 08/13/16 05:17 08/13/16 05:17 - Imaging EKG: report reviewed, image reviewed (SR; marked LAD; RBBB) Additional studies: limited TTE: LVEF 65% normal LV size/function increased LV wall thickness Anesthesia Exam Last Vital Signs Temp 98.2 F 08/13/16 13:01 Pulse 69 08/13/16 13:29 Resp 18 08/13/16 13:29 BP 126/61 08/13/16 13:29 Pulse Ox 96 08/13/16 13:29 Weight: 122 kg NPO (# of Hours): clears > 2 hrs; solid food > 8 - HEENT Pupil (Motor): Pupils equal, EOMI Mallampati: III Teeth: Edentulous Oral Opening: Greater than 3 - DOWEL INSERTING MACHINE OPERATOR LOC: Oriented DOWEL INSERTING MACHINE OPERATOR Motor: Normal RUE, Normal LUE, Normal RLE, Normal LLE, Normal Face - Cardiac Rhythm: Regular Murmur: Systolic (grade II AMANDA) - Pulmonary Breath Sounds: bilateral Clear Respiratory Effort: Symmetrical Anesthesia Assess/Plan ASA Score: 4 (Respiratory failure; a fib, HTN, CHF, IDDM, hypothyroidism) Modified [place] Scale for Level of Consciousness: Cooperative, oriented, and tranquil Anesthetic Plan: MAC Monitoring Plan: Standard Monitors Recovery Plan: PACU
[2016-08-13] MEDS ORDERED: Tetracaine/Benzocaine/Butamben 200MG/SPRAY (100SPY/BOT) MM ONE (14:15)
[2016-08-13] MEDS ORDERED: Albuterol 2.5 MG/3 ML NEBULIZER ONE (15:08)
[2016-08-13] MEDS ORDERED: Albuterol 2.5 MG/3 ML NEBULIZER IH ONE (15:20)
--- NOTE | 2016-08-13 16:33 | Anesthesia Evaluation Post Op ---
Date of Encounter: 08/13/16 Time of Encounter: 16:20 - Vital Signs Vital Signs: Last Vital Signs Temp 97.5 F L 08/13/16 16:27 Pulse 73 08/13/16 16:27 Resp 16 08/13/16 16:27 BP 143/71 08/13/16 16:27 Pulse Ox 90 L 08/13/16 16:27 - Lungs Lungs: Clear Ascult./Percussion - Airway Airway: Non-obstructed - Cardiovascular Baseline Rhythm - Mental Status Mental Status: Alert & Oriented, Answers Appropriately - Pain Pain Scale: 2 - Nausea Vomiting Nausea Vomiting: Not Present - Hydration Hydration: NPO - Discharge PostOp Status: Transfer Patient to floor
[2016-08-13] MEDS: Furosemide 40 MG TABLET PO SCH (17:37)
[2016-08-13] MEDS ORDERED: *HR* Warfarin 2.5 MG TABLET PO SCH (18:00)
[2016-08-14] MEDS: Ipratropium/Albuterol Neb 3 ML IH SCH ×3 (04:06→15:43)
[2016-08-14 07:19] LABS: Basophils % 0.3 %; Eosinophils # 0.1 K/mcL (0.0-0.6); Eosinophils % 1.5 %; Hemoglobin 8.2 g/dL (12.9-16.9); Immature Granulocytes % 0.2 % (0-4); Lymphocytes # 0.8 K/mcL (0.6-4.6); Mean Corpuscular HGB Conc 29.3 g/dL (31.6-35.5); Mean Corpuscular Hemoglobin 26.5 pg (28.0-33.3); Mean Corpuscular Volume 90.6 fL (83.0-100.0); Mean Platelet Volume 10.2 fL (9.4-12.4); Monocytes # 1.1 K/mcL (0.0-1.3); Monocytes % 11.9 %; Neutrophils # 7.3 K/mcL (1.6-8.9); Platelet Count 115 K/mcL (140-400); Red Blood Count 3.09 M/mcL (4.19-5.50); Red Cell Distribution Width 16.4 % (11.5-14.5); Segmented Neutrophils % 78.1 %
[2016-08-14 07:40] LABS: INR 2.4; Prothrombin Time 26.4 Seconds (9.4-12.1)
[2016-08-14] MEDS: levoFLOXacin 750 MG TABLET PO SCH (07:49)
[2016-08-14] MEDS: Isosorbide MONOnitrate (24 HR) 30 MG TAB.ER.24H PO SCH (07:50)
[2016-08-14] MEDS: Aspirin 81 MG TAB.CHEW PO SCH (07:50)
[2016-08-14] MEDS: Gabapentin 100 MG CAPSULE PO SCH ×2 (07:50→16:00)
[2016-08-14] MEDS: Insulin LISPRO 300 UNITS/3 ML VIAL SQ SCH ×2 (07:51→12:28)
[2016-08-14] MEDS: Furosemide 40 MG TABLET PO SCH (07:51)
[2016-08-14] MEDS: Insulin DETEMIR 100 UNIT/ML X5UNITS SQ SCH (07:51)
[2016-08-14 07:55] LABS: Alanine Aminotransferase 15 Units/L (0-55); Albumin/Globulin Ratio 0.8 (1.1-2.2); Alkaline Phosphatase 60 Units/L (38-126); Aspartate Amino Transferase 20 Units/L (5-34); BUN/Creatinine Ratio 22 (6-26); Bilirubin,Total 0.7 mg/dL (0.2-1.2); Blood Urea Nitrogen 28 mg/dL (8-26); Carbon Dioxide 29 mEq/L (19-29); Chloride 104 mEq/L (98-109); Globulin 3.7 g/dL (2.4-3.5); Glucose 122 mg/dL (70-99); Osmolality,Calculated 297 (280-300); Potassium 4.4 mEq/L (3.5-4.5); Sodium 140 mEq/L (136-145); Total Protein 6.7 g/dL (6.0-8.3); eGFR For African Americans > 60 (> 60); eGFR For Non-African Americans 54 (> 60)
--- NOTE | 2016-08-14 12:01 | Discharge Summary ---
Date of Encounter: 08/14/16 Time of Encounter: 11:59 - Discharge Medications Prescriptions: Furosemide [Lasix] 40 mg PO DAILY #30 tablet Home Medications: Albuterol Sulfate [Albuterol Inhaler] 2 puff IH Q4HR PRN 06/02/15 [History] Aspirin 81 mg PO DAILY 06/02/15 [History] Calcitonin Nasal [place] [Miacalcin Nasal [place]] 1 spray NS DAILY 06/02/15 [ History] HYDROcodone/Acet 5/325 mg [[place] 5-325 mg] 1 tab PO QAM 06/02/15 [History] Insulin ASPART [NovoLOG] 2 - 14 unit SQ TIDWM 06/02/15 [History] Insulin NPH, HUMAN [HumuLIN N] 54 unit SQ BID 06/02/15 [History] Levothyroxine [Synthroid] 50 mcg PO QAM 06/02/15 [History] Metoprolol [Lopressor] 50 mg PO BID 06/02/15 [History] Acetaminophen/Diphenhydramine [Acetaminophen Pm Caplet] 1 tab PO HS 01/12/16 [ History] Ipratropium/Albuterol Neb [Duoneb] 3 ml IH QID 03/15/16 [History] LORazepam [Ativan] 0.5 mg PO DAILY PRN 03/15/16 [History] Simvastatin [Zocor] 40 mg PO HS #30 tablet 04/29/16 [Rx] Isosorbide MONOnitrate (24 HR) [Imdur] 30 mg PO DAILY 08/09/16 [History] Furosemide [Lasix] 40 mg PO DAILY #30 tablet 08/14/16 [Rx] Allergies/Adverse Reactions: Allergies No Known Allergies Allergy (Verified 04/27/16 14:23) Procedures/tests Complete & Pending: Procedures Performed prior 72 hours Category Date Time Status ECG 12 lead ECG [ECG] Routine Y 08/13/16 16:24 Completed Date of admission: 08/08/16 18:33 Primary care physician: Alonzo Kuhn MD Consults: 08/08/16 18:37 Consult to Nurse Navigator [CONS] Routine Comment: 08/09/16 10:05 Consult to Research Fellow [CONS] Routine Reason for SW Consult: Patient asking for discharge to rehab 08/12/16 07:58 Consult to Gastroenterology [CONS] Routine Consulting Provider: [facility] Reason for Consult: Positive occult blood Call Completed: No Discharging clinician: Blair Mobley Anticipated date of discharge: 08/14/16 - Patient Status Disposition: Home Health Service Condition: Fair Functional capacity at discharge: uses cane/walker Overall status at discharge: patient is back to baseline - Discharge Instructions Instructions: Furosemide (By mouth), 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 Pan is a 89 year old male with PMHx of arthritis, Afib-on Coumadin, CHF, COPD, DM, GERD, HLD, HTN who presented due to chest pain which resolved within 2 minutes of rest. CXR revealed a right lower lobe infiltrate concerning for PNA and right sided pleural effusion. HE was started initially on broad- spectrum IV antibiotics and IV Lasix. He improved clinically however his creatinine started to rise up, for which Lasix was held temporarily. However it appears that he will probably need maintenance Lasix daily given his bilateral lower leg edema and persistent pleural effusion with pulmonary vascular congestion on the CXR resulting in MARLEY. limited ECHO was done that showed normal LVEF of 65% , diastolic fxn was not assesed. blood cx are negative , he has no leucocytosis or fever. He had a large BM that was dark black and sticky on 08/08 and 08/09. No history of colon cancer, gastric ulcers, or GERD. He denies hematuria, nausea, or vomiting. He does note BRBPR with wiping. FOBT was positive on 08/11. He underwent EGD and colonoscopy, GI was consulted. However there was no active bleeding noted on EGD /colonoscopy this time. He is being discharged today in stable condition, he qualified for home oxygen, will send home on 3 L of nasal cannula. will complete 7 days of oral levofloxacin. He will follow-up with his primary care doctor as outpatient. Hospital course: Mr. Pan is a 89 year old male Time spent discussing smoking cessation with patient: more than 10 minutes - Time Spent with Patient Total time spent providing and/or coordinating discharge services: Greater than 30 minutes - Constitutional Vitals: Temp Pulse Resp BP Pulse Ox 98.6 F 69 17 127/50 99 08/14/16 07:00 08/14/16 07:00 08/14/16 07:00 08/14/16 07:00 08/14/16 10:17 General appearance: Present: cooperative, A&O X 3, pleasant, no acute distress, obese, answers questions appropriately Exam: - Head Head exam: Present: atraumatic, normocephalic - Eye Eye exam: Present: PERRL, conjuntiva pink, sclera anicteric Pupils: Present: PERRL - ENT ENT exam: Present: mucous membranes dry - Neck Neck exam general surgery: Present: supple, trachea midline. Absent: lymphadenopathy - Respiratory Respiratory exam: Present: Decreased breath sounds on the right side, no wheezing or crepitations. - Cardiovascular Cardiovascular exam: Present: RRR, +S1, +S2. Absent: diastolic murmur, gallop, rubs, systolic murmur - GI/Abdominal GI/Abdominal exam: Present: normal bowel sounds, soft, tenderness (LLQ RLQ), no peritoneal signs - Extremities Exam Extremities exam: Present: warm. Absent: calf tenderness, cyanotic, pedal edema , tenderness Additional comments: diminished popliteal and PT pulses b/L LE thin skin with hair loss thickened toe nails - Neurological Exam Neurological exam: Present: CN II-XII intact, oriented X3, no focal deficits. Absent: facial droop - Skin Skin exam: Present: dry, intact, pallor. Absent: cyanosis, diaphoretic
[2016-08-14 15:40] VITALS: BP 137/65
--- NOTE | 2016-08-15 08:02 | Electrocardiograph Report ---
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
== END 2016-08-14 18:38 | disposition home health service (06) | DRG 190 ==
LOC: EMEROO 11:19 → 2ANU 11:19 → SUATTDRO 18:33
PROVIDERS: ADMIT Internal Medicine; ATTEND Internal Medicine Endocrinology, Diabetes & Metabolism

== ENCOUNTER 2016-09-15 15:40 | Inpatient (IN) ==
--- NOTE | 2016-09-15 16:34 | Emergency Department Note ---
Disposition Clinical Impression: C. difficile colitis Diarrhea Qualifiers: Diarrhea type: infectious Qualified Code(s): A09 - Infectious gastroenteritis and colitis, unspecified Disposition: Admitted As Inpatient Referrals: Alonzo Kuhn MD [Primary Care Provider] - Forms: ED Satisfaction Letter Nausea/Vomiting/Diarrhea HPI - General Chief complaint: ED Nausea/Vomiting/Diarrhea Stated complaint: Possible C-diff Time Seen by Provider: 09/15/16 16:04 Source: patient, family Limitations: no limitations Nursing Notes Reviewed: Yes Vital Signs Reviewed: Yes - History of Present Illness Pt Subjective Complaint: diarrhea Onset (ago): week(s) (3) Description of Diarrhea: water Associated Abdominal Pain: No Consistency: intermittent Improves with: nothing Worsens with: eating Context: other (Recent C. difficile infection finished vancomycin and Flagyl approximately 10 days ago still having diarrhea and stool incontinence) Associated symptoms: Denies: fever/chills, nausea/vomiting - Related Data Home Medications Medication Instructions Recorded Confirmed Albuterol Sulfate [Albuterol 2 puff IH Q4HR PRN 06/02/15 08/08/16 Inhaler] Aspirin 81 mg PO DAILY 06/02/15 08/08/16 Calcitonin Nasal [place] [Miacalcin 1 spray NS DAILY 06/02/15 08/08/16 Nasal [place]] HYDROcodone/Acet 5/325 mg [[place] 1 tab PO QAM 06/02/15 08/08/16 5-325 mg] Insulin ASPART [NovoLOG] 2 - 14 unit SQ TIDWM 06/02/15 08/08/16 Insulin NPH, HUMAN [HumuLIN N] 54 unit SQ BID 06/02/15 08/08/16 Levothyroxine [Synthroid] 50 mcg PO QAM 06/02/15 08/08/16 Metoprolol [Lopressor] 50 mg PO BID 06/02/15 08/08/16 Acetaminophen/Diphenhydramine 1 tab PO HS 01/12/16 08/08/16 [Acetaminophen Pm Caplet] Ipratropium/Albuterol Neb [Duoneb] 3 ml IH QID 03/15/16 08/08/16 LORazepam [Ativan] 0.5 mg PO DAILY PRN 03/15/16 08/08/16 Isosorbide MONOnitrate (24 HR) 30 mg PO DAILY 08/09/16 08/09/16 [Imdur] Previous Rx's Medication Instructions Recorded Simvastatin [Zocor] 40 mg PO HS #30 tablet 04/29/16 Furosemide [Lasix] 40 mg PO DAILY #30 tablet 08/14/16 Magic Mouthwash [Magic Mouthwash 10 ml PO QID PRN #240 ml 09/01/16 BLM] Allergies Allergy/AdvReac Type Severity Reaction Status Date / Time No Known Allergies Allergy Verified 09/01/16 01:35 All systems ED: reviewed and negative except as stated. Constitutional: Reports: weakness. Denies: fever, chills Gastrointestinal: Reports: diarrhea Past Medical History - Past Medical History Source: patient, old records reviewed, obtained from family, nursing notes reviewed Medical history: Reports: arthritis, atrial fibrillation, CHF, COPD, diabetes, GERD, hyperlipidemia, hypertension, osteoporosis, thyroid disease, other Surgical history: Reports: appendectomy, cholecystectomy, knee replacement Psychiatric history: Reports: anxiety, depression - Social History Smoking Status: Former smoker Smokeless Tobacco Status: No Alcohol use: Reports: occasionally Drug use: Reports: none Physical Exam - General Limitations: no limitations General appearance: alert - Eye Eye exam: Present: normal appearance, PERRL, EOMI - ENT ENT exam: normal exam, normal oropharynx, mucous membranes moist - Neck Neck exam: Present: normal inspection, full ROM, trachea midline - Chest Chest inspection: Present: normal inspection, symmetric chest wall rise - Respiratory Respiratory exam: Present: normal lung sounds bilaterally - Cardiovascular Cardiovascular exam: Present: regular rate, normal rhythm, normal heart sounds - Abdominal Exam Abdominal exam: Present: soft, Non-Tender. Absent: tenderness, distention, guarding, rebound, rigidity - Back Exam Back exam: Present: normal inspection, full ROM. Absent: tenderness - Neurological Exam Neurological exam: Present: alert, oriented X3 - Psychiatric Psychiatric exam: Present: normal affect, normal mood - Skin Skin exam: Present: warm, dry, intact, normal color Course Course Narrative: Patient developed C. difficile colitis after hospitalization with IV and about for pneumonia. He spent 8 days [facility] for C. difficile colitis was sent home on vancomycin and Flagyl which did not seem to improve his symptoms. He still having diarrhea he reported this to his primary care physician who he states did not address the issue. He comes back today with continued diarrhea and fecal incontinence Vital Signs Temperature 97.3 F L 09/15/16 15:43 Pulse Rate 72 09/15/16 15:43 Respiratory Rate 18 09/15/16 15:43 Blood Pressure 135/53 09/15/16 15:43 O2 Sat by Pulse Oximetry 96 09/15/16 15:43 Temperature 97.3 F L 09/15/16 15:43 Pulse Rate 72 09/15/16 15:43 Respiratory Rate 18 09/15/16 15:43 Blood Pressure 135/53 09/15/16 15:43 O2 Sat by Pulse Oximetry 96 09/15/16 15:43 Oxygen Delivery Oxygen Delivery Nasal Cannula Nausea/Vomiting/Diarrhea - Differential Diagnosis Likely: gastroenteritis, clostridium difficile infection, drug-induced nausea and vomitting, dehydration, bowel obstruction, ischemic bowel - Medical Records Medical records reviewed: Yes I reviewed the patient's medical records. - Lab Data Lab results reviewed: Yes I reviewed the patient's lab results. Result diagrams: 09/15/16 18:26 09/15/16 18:26 Lab Results 09/15/16 09/15/16 09/15/16 Range/Units 16:30 18:26 18:26 WBC 7.0 (4.3-11.1) K/mcL RBC 3.74 L (4.19-5.50) M/mcL Hgb 10.2 L (12.9-16.9) g/dL Hct 33.4 L (37.5-50.1) % MCV 89.3 (83.0-100.0) fL MCH 27.3 L (28.0-33.3) pg MCHC 30.5 L (31.6-35.5) g/dL RDW 17.3 H (11.5-14.5) % Plt Count 184 (140-400) K/mcL MPV 9.0 L (9.4-12.4) fL Immature Gran % 0.6 (0-4) % Seg Neutrophils % 72.4 % Lymphocytes % 14.4 % Monocytes % 10.3 % Eosinophils % 1.4 % Basophils % 0.9 % Neutrophils # 5.1 (1.6-8.9) K/mcL Lymphocytes # 1.0 (0.6-4.6) K/mcL Monocytes # 0.7 (0.0-1.3) K/mcL Eosinophils # 0.1 (0.0-0.6) K/mcL Basophils # 0.1 (0.0-0.2) K/mcL PT 14.8 H (9.4-12.1) Seconds INR 1.4 Sodium (136-145) mEq/L Potassium (3.5-4.5) mEq/L Chloride (98-109) mEq/L Carbon Dioxide (19-29) mEq/L BUN (8-26) mg/dL Creatinine (0.72-1.25) mg/dL Est GFR ( Amer) (> 60) Est GFR (Non-Af Amer) (> 60) BUN/Creatinine Ratio (6-26) Glucose (70-99) mg/dL Calculated Osmolality (280-300) Calcium (8.6-10.8) mg/dL Total Bilirubin (0.2-1.2) mg/dL Direct Bilirubin (0.0-0.5) mg/dL Indirect Bilirubin (0.0-1.2) mg/dL AST (5-34) Units/L ALT (0-55) Units/L Alkaline Phosphatase (38-126) Units/L Serum Total Protein (6.0-8.3) g/dL Albumin (3.5-5.0) g/dL Globulin (2.4-3.5) g/dL Albumin/Globulin Ratio (1.1-2.2) Amylase (25-125) Units/L Lipase (8-78) Units/L Stl C. diff Tox B Gene Positive (Negative) 09/15/16 Range/Units 18:26 WBC (4.3-11.1) K/mcL RBC (4.19-5.50) M/mcL Hgb (12.9-16.9) g/dL Hct (37.5-50.1) % MCV (83.0-100.0) fL MCH (28.0-33.3) pg MCHC (31.6-35.5) g/dL RDW (11.5-14.5) % Plt Count (140-400) K/mcL MPV (9.4-12.4) fL Immature Gran % (0-4) % Seg Neutrophils % % Lymphocytes % % Monocytes % % Eosinophils % % Basophils % % Neutrophils # (1.6-8.9) K/mcL Lymphocytes # (0.6-4.6) K/mcL Monocytes # (0.0-1.3) K/mcL Eosinophils # (0.0-0.6) K/mcL Basophils # (0.0-0.2) K/mcL PT (9.4-12.1) Seconds INR Sodium 140 (136-145) mEq/L Potassium 3.7 (3.5-4.5) mEq/L Chloride 100 (98-109) mEq/L Carbon Dioxide 30 H (19-29) mEq/L BUN 18 (8-26) mg/dL Creatinine 1.47 H (0.72-1.25) mg/dL Est GFR ( Amer) 55 L (> 60) Est GFR (Non-Af Amer) 45 L (> 60) BUN/Creatinine Ratio 12 (6-26) Glucose 162 H (70-99) mg/dL Calculated Osmolality 295 (280-300) Calcium 9.2 (8.6-10.8) mg/dL Total Bilirubin 0.7 (0.2-1.2) mg/dL Direct Bilirubin 0.4 (0.0-0.5) mg/dL Indirect Bilirubin 0.3 (0.0-1.2) mg/dL AST 17 (5-34) Units/L ALT 12 (0-55) Units/L Alkaline Phosphatase 61 (38-126) Units/L Serum Total Protein 7.3 (6.0-8.3) g/dL Albumin 3.2 L (3.5-5.0) g/dL Globulin 4.1 H (2.4-3.5) g/dL Albumin/Globulin Ratio 0.8 L (1.1-2.2) Amylase 36 (25-125) Units/L Lipase 15 (8-78) Units/L Stl C. diff Tox B Gene (Negative)
[2016-09-15] MEDS ORDERED: 0.9 % Sodium Chloride 1,000 ML IVC ONE (18:07)
[2016-09-15 18:34] LABS: Basophils # 0.1 K/mcL (0.0-0.2); Basophils % 0.9 %; Eosinophils # 0.1 K/mcL (0.0-0.6); Eosinophils % 1.4 %; Hematocrit 33.4 % (37.5-50.1); Hemoglobin 10.2 g/dL (12.9-16.9); Immature Granulocytes % 0.6 % (0-4); Lymphocytes % 14.4 %; Mean Corpuscular HGB Conc 30.5 g/dL (31.6-35.5); Mean Corpuscular Hemoglobin 27.3 pg (28.0-33.3); Mean Corpuscular Volume 89.3 fL (83.0-100.0); Monocytes # 0.7 K/mcL (0.0-1.3); Monocytes % 10.3 %; Neutrophils # 5.1 K/mcL (1.6-8.9); Platelet Count 184 K/mcL (140-400); Red Blood Count 3.74 M/mcL (4.19-5.50); Red Cell Distribution Width 17.3 % (11.5-14.5); Segmented Neutrophils % 72.4 %
[2016-09-15 18:40] LABS: INR 1.4; Prothrombin Time 14.8 Seconds (9.4-12.1)
[2016-09-15 18:51] LABS: Albumin 3.2 g/dL (3.5-5.0); Albumin/Globulin Ratio 0.8 (1.1-2.2); Bilirubin,Direct 0.4 mg/dL (0.0-0.5); Bilirubin,Indirect 0.3 mg/dL (0.0-1.2); Bilirubin,Total 0.7 mg/dL (0.2-1.2); Calcium 9.2 mg/dL (8.6-10.8); Globulin 4.1 g/dL (2.4-3.5); Potassium 3.7 mEq/L (3.5-4.5); Total Protein 7.3 g/dL (6.0-8.3)
--- NOTE | 2016-09-15 23:43 | Internal Med History&Physical ---
<Melissa Ramos - Last Filed: 09/16/16 00:07> Date of Encounter: 09/16/16 Time of Encounter: 23:00 Assessment and Plan (1) Diarrhea Current visit: Yes Status: Acute - With reported one long bowel movement per day and fecal incontinence. - Differential diagnoses include anal sphincter dysfunction, IBS, malabsorption. - Doubt active C. difficile colitis at this time given no fever, leukocytosis or abdominal pain. The positive C. diff. toxin test is likely from colonization. - Less likely colon cancer given no significant abnormality noted on colonoscopy on 08/13/16. - Will obtain stool culture to further evaluation. Also check KUB to rule out toxic megacolon. - Will obtain medical records form [facility] regarding patient's recent hospitalization there for C. diff. - Will start patient on oral probiotic. - Okay to hold antibiotic at this time given no sign suggesting active infection. - May consider GI consult for further work-up. Qualifiers: Diarrhea type: unspecified type Qualified Code(s): R19.7 - Diarrhea, unspecified (2) CHF (congestive heart failure) Current visit: No Status: Chronic - Limited echo on 08/09/16 showed LVEF 65% with prior one moderate diastolic dysfunction. - Continue home dose diuresis. - Strict I/O, daily weight, low salt diet and fluid restriction of 1.5 L. 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 - Avoid nephrotoxin. - Continue to monitor renal function and electrolytes. (4) Atrial fibrillation Current visit: No Status: Chronic - Currently rate-controlled. - Continue rate control with beta fermin. - Coumadin and aspirin were recently held due to significant anemia. Qualifiers: Atrial fibrillation type: paroxysmal Qualified Code(s): I48.0 - Paroxysmal atrial fibrillation (5) Diabetes Current visit: No Status: Chronic - Insulin sliding scale with routine glucose monitoring. 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 Internal Medicine - H&P: HPI Chief complaint: "Diarrhea" Admitted From: Emergency Dept Plans for Post Hospital Care: Home History of present illness: Mr. Pan is a 89 year old male with diastolic CHF, A-fib, mild to moderate aortic stenosis, DM2, HTN and GERD. Patient presented to [facility] ED with the complaint of diarrhea. Patient reports having diarrhea problem going on for 4 months. Patient states having one bowel movement lasting for a hour or longer daily. It's associated with fecal incontinence. The stool is mostly soft and sometimes loosen. Patient occasionally sees bright red blood in stool but states it's likely from his hemorrhoid. Regarding stool color, patient reports it was very dark initially but now remains brown after being treated for C. difficile colitis at [facility]. Patient reports being hospitalized in [facility] for 9 days and was discharged 7-8 days ago. Patient reports getting PO antibiotic treatment but cannot recall the name of antibiotic. Patient denies abdominal pain, nausea, vomiting, anorexia, dyaphagia, fever, chills. Patient does have bilateral lower extremity edema and exertional dyspnea but reports those are about the same as his baseline. Patient is DNR-CCA-DNI. Past Med Surg Social Fam HX - Past Medical History Source: patient, old records reviewed Medical history: arthritis, atrial fibrillation, CHF, COPD, diabetes, GERD, hyperlipidemia, hypertension, osteoporosis, thyroid disease, other Psychiatric history: anxiety, depression - Past Surgical History Surgical History: appendectomy, cholecystectomy, knee replacement - Social History Smoking Status: Former smoker Smokeless Tobacco Status: No Alcohol use: occasionally Drug use: none - Family History Father Living Status: Age at : 97 Hx Family Cardiac Disorders: Yes (heart murmur) Hx Family Neurologic Disorders: Yes (Dementia) Mother Adopted: No Family Member Ethnicity: Non- Living Status: Age at : 70 Cause of : stroke Hx Family Cardiac Disorders: Yes (stroke) Hx Family Neuromuscular Disorders: Yes (Stroke at age 70s.) Hx Family Neurologic Disorders: Yes (seizures) Internal Medicine - H&P: Meds Albuterol Sulfate [Albuterol Inhaler] 2 puff IH Q4HR PRN 06/02/15 [History] Aspirin 81 mg PO DAILY 06/02/15 [History] Calcitonin Nasal [place] [Miacalcin Nasal [place]] 1 spray NS DAILY 06/02/15 [ History] HYDROcodone/Acet 5/325 mg [[place] 5-325 mg] 1 tab PO QAM 06/02/15 [History] Insulin ASPART [NovoLOG] 2 - 14 unit SQ TIDWM 06/02/15 [History] Insulin NPH, HUMAN [HumuLIN N] 54 unit SQ BID 06/02/15 [History] Levothyroxine [Synthroid] 50 mcg PO QAM 06/02/15 [History] Metoprolol [Lopressor] 50 mg PO BID 06/02/15 [History] Acetaminophen/Diphenhydramine [Acetaminophen Pm Caplet] 1 tab PO HS 01/12/16 [ History] Ipratropium/Albuterol Neb [Duoneb] 3 ml IH QID 03/15/16 [History] LORazepam [Ativan] 0.5 mg PO DAILY PRN 03/15/16 [History] Simvastatin [Zocor] 40 mg PO HS #30 tablet 04/29/16 [Rx] Isosorbide MONOnitrate (24 HR) [Imdur] 30 mg PO DAILY 08/09/16 [History] Furosemide [Lasix] 40 mg PO DAILY #30 tablet 08/14/16 [Rx] Magic Mouthwash [Magic Mouthwash BLM] 10 ml PO QID PRN #240 ml 09/01/16 [Rx] Allergies No Known Allergies Allergy (Verified 09/01/16 01:35) All Systems PM: A 10-system review of systems was performed and is negative for pertinent findings except as documented above in the HPI. - Constitutional Constitutional: no anorexia, no chills, no fever(s), no weight gain, no weight loss - EENT Eyes: no change in vision Ears: no decreased hearing Nose, mouth and throat: no dysphagia, no odynophagia - Cardiovascular Cardiovascular ROS IM: no chest pain, no lightheadedness, no syncope - Respiratory Respiratory: cough (Occasional), dyspnea on exertion, no hemoptysis, no excessive phlegm production - Gastrointestinal Gastrointestinal: as per HPI - Genitourinary Genitourinary ROS male: difficulty urinating (Chronic difficulty to initiate urination.), no dysuria, no hematuria - Musculoskeletal Musculoskeletal ROS IM: arthralgias (Chronic bilateral shoulder pain), back pain (Chronic) - Neurological Neurological ROS: numbness (Chronic right hand and fingers numbness/tingling from carpal tunnel syndrome.), no focal weakness - Hematologic/Lymphatic Hematologic/Lymphatic: no easy bleeding, no easy bruising - Constitutional Vitals: Temp Pulse Resp BP Pulse Ox 98.4 F 82 18 138/61 95 09/15/16 23:31 09/15/16 23:31 09/15/16 23:31 09/15/16 23:31 09/15/16 23:31 General appearance: Present: cooperative, A&O X 3, no acute distress - Head Head exam: Present: atraumatic, normocephalic - Eye Eye exam: Present: EOMI, PERRL, conjuntiva pink, sclera anicteric - Neck Neck exam general surgery: Present: supple, trachea midline. Absent: lymphadenopathy - Respiratory Respiratory exam: Present: decreased breath sounds. Absent: accessory muscle use, rales, rhonchi, wheezes - Cardiovascular Cardiovascular exam: Present: RRR, +S1, +S2, systolic murmur. Absent: diastolic murmur, gallop, rubs - GI/Abdominal GI/Abdominal exam: Present: normal bowel sounds, soft, no peritoneal signs. Absent: distended, tenderness - Extremities Exam Extremities exam: Present: warm, radial pulses palpable and symetrical. Absent : calf tenderness, cyanotic Additional comments: Significant bilateral lower extremity edema. - Neurological Exam Neurological exam: Present: CN II-XII intact, oriented X3, no focal deficits. Absent: pronater drift, facial droop, speech deficit - Skin Skin exam: Present: dry, intact, warm Internal Med - H&P Results - Labs CBC & Chem 7: 09/15/16 18:26 09/15/16 18:26 Labs: Short CBC 09/15/16 Range/Units 18:26 WBC 7.0 (4.3-11.1) K/mcL Hgb 10.2 L (12.9-16.9) g/dL Hct 33.4 L (37.5-50.1) % Plt Count 184 (140-400) K/mcL Neutrophils # 5.1 (1.6-8.9) K/mcL BMP 09/15/16 Range/Units 18:26 Sodium 140 (136-145) mEq/L Potassium 3.7 (3.5-4.5) mEq/L Chloride 100 (98-109) mEq/L Carbon Dioxide 30 H (19-29) mEq/L BUN 18 (8-26) mg/dL Creatinine 1.47 H (0.72-1.25) mg/dL Glucose 162 H (70-99) mg/dL Calcium 9.2 (8.6-10.8) mg/dL Liver Function 09/15/16 Range/Units 18:26 Total Bilirubin 0.7 (0.2-1.2) mg/dL Direct Bilirubin 0.4 (0.0-0.5) mg/dL AST 17 (5-34) Units/L ALT 12 (0-55) Units/L Alkaline Phosphatase 61 (38-126) Units/L Albumin 3.2 L (3.5-5.0) g/dL <Sohail Snow - Last Filed: 09/16/16 09:57> Date of Encounter: 09/15/16 Internal Medicine - H&P: HPI History of present illness: Mr. Pan is a 89 year old male All Systems PM: A 10-system review of systems was performed and is negative for pertinent findings except as documented above in the HPI. - Constitutional Vitals: Temp Pulse Resp BP Pulse Ox 98.0 F 74 16 121/58 94 09/16/16 08:13 09/16/16 08:13 09/16/16 08:13 09/16/16 08:13 09/16/16 08:13 Internal Med - H&P Results - Labs CBC & Chem 7: 09/16/16 02:41 09/16/16 02:41 Labs: Short CBC 09/16/16 Range/Units 02:41 WBC 6.7 (4.3-11.1) K/mcL Hgb 9.8 L (12.9-16.9) g/dL Hct 31.9 L (37.5-50.1) % Plt Count 160 (140-400) K/mcL Neutrophils # 4.6 (1.6-8.9) K/mcL BMP 09/16/16 02:41 Sodium 140 Potassium 3.4 L Chloride 102 Carbon Dioxide 30 H BUN 18 Creatinine 1.38 H Glucose 159 H Calcium 8.7 - Impressions ITS Impressions Chest X-Ray 09/16/16 00:29 IMPRESSION: Small right pleural effusion and right lower lobe atelectatic changes. Cardiomegaly. D/ /16/2016 07:48:41 Cherelle Reed MD / jj Interpreting Provider: Cherelle Reed MD KUB X-Ray 09/16/16 00:29 IMPRESSION: No evidence of megacolon or other acute abdominal or pelvic abnormality. D/ /16/2016 07:49:12 Cherelle Reed MD / jj Interpreting Provider: Cherelle Reed MD - Attending Attestation I performed history and physical examination of the patient and discussed management with the Resident. I reviewed the Residents note and agree with documented findings and plan of care. 89 year old male with diastolic CHF, A-fib, aortic stenosis, DM2, HTN and GERD. He was recently hospitalized in 07/2016 with pneumonia, which was treated with antibiotics. He apparently admitted to outside hospital for c diff diarrhea , which was treated and discharged. He Presents with h/o diarrhea. He reports large watery BM and fecal incontinence. Denies abdominal pain, fever, nausea, vomiting. O/E: Not in acute distress. Abdomen soft and nontender. C. difficile toxin is positive. X-ray of the abdomen shows no megacolon. CXR shows improvement. A/P: C diff diarrhea: start oral vancomycin. GI consult; Obtain records from [facility]. Obtain stool culture
[2016-09-16] MEDS ORDERED: Dextrose Gel 15 GM PO PRN ×2 (00:09)
[2016-09-16] MEDS ORDERED: *HR* Dextrose 50 % in Water (Syg) 50 ML SYRINGE IVP PRN (00:09)
[2016-09-16] MEDS ORDERED: D5% in Water 1,000 ML IVC PRN (00:09)
[2016-09-16] MEDS: Lactobacillus 1 EACH CAP.SPRINK PO SCH ×3 (02:28→21:40)
[2016-09-16 02:51] LABS: Basophils # 0.1 K/mcL (0.0-0.2); Basophils % 0.8 %; Eosinophils # 0.1 K/mcL (0.0-0.6); Eosinophils % 1.8 %; Hematocrit 31.9 % (37.5-50.1); Hemoglobin 9.8 g/dL (12.9-16.9); Immature Granulocytes % 0.6 % (0-4); Lymphocytes % 14.7 %; Mean Corpuscular HGB Conc 30.7 g/dL (31.6-35.5); Mean Corpuscular Hemoglobin 27.4 pg (28.0-33.3); Mean Corpuscular Volume 89.1 fL (83.0-100.0); Mean Platelet Volume 9.1 fL (9.4-12.4); Monocytes # 0.9 K/mcL (0.0-1.3); Monocytes % 12.8 %; Neutrophils # 4.6 K/mcL (1.6-8.9); Platelet Count 160 K/mcL (140-400); Red Blood Count 3.58 M/mcL (4.19-5.50); Red Cell Distribution Width 17.2 % (11.5-14.5); Segmented Neutrophils % 69.3 %
[2016-09-16 03:08] LABS: Calcium 8.7 mg/dL (8.6-10.8); Potassium 3.4 mEq/L (3.5-4.5)
[2016-09-16] MEDS: Vancomycin Oral Soln 250 MG/2.5 ML UDC PO SCH ×5 (05:52→21:40)
[2016-09-16] MEDS: *HR* Heparin 5,000 UNIT/ML VIAL SQ SCH ×3 (05:52→21:40)
[2016-09-16] MEDS: Insulin LISPRO 300 UNITS/3 ML VIAL SQ SCH ×4 (08:15→21:40)
--- NOTE | 2016-09-16 15:57 | Internal Med Progress Note ---
Date of Encounter: 09/16/16 Time of Encounter: 09:00 - Assessment and plan (1) C. difficile colitis Current Visit: Yes Status: Acute Assessment and plan: Pt has no history of C. difficile previously. He was placed on vancomycin by mouth in ER. Will switch to Flagyl by mouth now and finish a 14 day course. - Lactobacillus po bid. (2) CHF (congestive heart failure) Current Visit: No Status: Chronic Assessment and plan: Stable. No signs of exacerbation. Continue home medications Qualifiers: Congestive heart failure type: diastolic Congestive heart failure chronicity: acute on chronic Qualified Code(s): 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 (3) Diabetes Current Visit: No Status: Chronic Assessment and plan: Cover patient with sliding scale. 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 Coumadin and aspirin were recently held due to significant anemia. Qualifiers: Atrial fibrillation type: paroxysmal Qualified Code(s): I48.0 - Paroxysmal atrial fibrillation (5) Chronic kidney disease, stage 3 Current Visit: No Status: Chronic Assessment and plan: Stable. Creatinine level is at about his baseline. (6) DVT prophylaxis Current Visit: No Status: Acute Assessment and plan: Heparin subcutaneously - Time Spent With Patient 25 - 35 minutes - Subjective Interval history: Patient is a 89-year-old male admitted for diarrhea. He was treated with antibiotic for pneumonia recently. His C. difficile test is positive. Past medical history is significant for CHF, CKD, A. fib, diabetes. Pt was seen and examined. His diarrhea has improved after treatment, had only 1 bowel movement last night, stool is well formed but still loose. Vital signs stable. Denies abdominal pain. We will switch vancomycin to flagyl by mouth because pt has no hx of C Diff infection before. Closely follow up BMP. - Constitutional Vitals: Temp Pulse Resp BP Pulse Ox 97.5 F L 55 18 123/62 100 09/16/16 14:49 09/16/16 14:49 09/16/16 14:49 09/16/16 14:49 09/16/16 14:49 General appearance: Present: cooperative, A&O X 3, no acute distress - Head Head exam: Present: atraumatic, normocephalic - Eye Eye exam: Present: PERRL, conjuntiva pink, sclera anicteric Pupils: Present: PERRL - Neck Neck exam general surgery: Present: supple, trachea midline. Absent: lymphadenopathy - Respiratory Respiratory exam: Present: CTAB. Absent: accessory muscle use, rales, rhonchi, wheezes - Cardiovascular Cardiovascular exam: Present: RRR, +S1, +S2. Absent: diastolic murmur, gallop, rubs, systolic murmur - GI/Abdominal GI/Abdominal exam: Present: normal bowel sounds, soft, no peritoneal signs. Absent: distended, tenderness - Extremities Exam Extremities exam: Present: warm, radial pulses palpable and symetrical. Absent : calf tenderness, cyanotic, pedal edema - Neurological Exam Neurological exam: Present: CN II-XII intact, oriented X3, no focal deficits. Absent: pronater drift, facial droop, speech deficit - Skin Skin exam: Present: dry, intact Internal Medicine: Result - Labs CBC & Chem 7: 09/16/16 02:41 09/16/16 02:41 Labs: Short CBC 09/16/16 Range/Units 02:41 WBC 6.7 (4.3-11.1) K/mcL Hgb 9.8 L (12.9-16.9) g/dL Hct 31.9 L (37.5-50.1) % Plt Count 160 (140-400) K/mcL Neutrophils # 4.6 (1.6-8.9) K/mcL BMP 09/16/16 02:41 Sodium 140 Potassium 3.4 L Chloride 102 Carbon Dioxide 30 H BUN 18 Creatinine 1.38 H Glucose 159 H Calcium 8.7 - ABG Interpretation ABG results: PT/INR, D-dimer PT 14.8 Seconds (9.4-12.1) H 09/15/16 18:26 - Impressions Impressions Chest X-Ray 09/16/16 00:29 IMPRESSION: Small right pleural effusion and right lower lobe atelectatic changes. Cardiomegaly. D/ /16/2016 07:48:41 Cherelle Reed MD / jj Interpreting Provider: Cherelle Reed MD KUB X-Ray 09/16/16 00:29 IMPRESSION: No evidence of megacolon or other acute abdominal or pelvic abnormality. D/ /16/2016 07:49:12 Cherelle Reed MD / jj Interpreting Provider: Cherelle Reed MD Consult Discharge Plan - Plan Referrals: Alonzo Kuhn MD [Primary Care Provider] -
[2016-09-16] MEDS: Ipratropium/Albuterol Neb 3 ML IH SCH ×2 (16:43→22:37)
[2016-09-16] MEDS ORDERED: metroNIDAZOLE 500 MG TABLET PO SCH (21:00)
[2016-09-16] MEDS: Insulin DETEMIR 100 UNIT/ML X5UNITS SQ SCH (21:40)
[2016-09-17] MEDS: Ipratropium/Albuterol Neb 3 ML IH SCH ×4 (04:16→22:47)
[2016-09-17 05:09] LABS: Basophils % 0.5 %; Eosinophils # 0.1 K/mcL (0.0-0.6); Eosinophils % 1.9 %; Hematocrit 29.9 % (37.5-50.1); Hemoglobin 9.3 g/dL (12.9-16.9); Immature Granulocytes % 0.3 % (0-4); Lymphocytes # 1.1 K/mcL (0.6-4.6); Mean Corpuscular HGB Conc 31.1 g/dL (31.6-35.5); Mean Corpuscular Hemoglobin 27.8 pg (28.0-33.3); Mean Corpuscular Volume 89.5 fL (83.0-100.0); Mean Platelet Volume 10.2 fL (9.4-12.4); Monocytes # 0.9 K/mcL (0.0-1.3); Monocytes % 14.4 %; Neutrophils # 4.1 K/mcL (1.6-8.9); Platelet Count 155 K/mcL (140-400); Red Blood Count 3.34 M/mcL (4.19-5.50); Red Cell Distribution Width 17.2 % (11.5-14.5); Segmented Neutrophils % 65.9 %
[2016-09-17 05:22] LABS: BUN/Creatinine Ratio 15 (6-26); Blood Urea Nitrogen 19 mg/dL (8-26); Calcium 8.8 mg/dL (8.6-10.8); Carbon Dioxide 29 mEq/L (19-29); Chloride 102 mEq/L (98-109); Glucose 143 mg/dL (70-99); Osmolality,Calculated 293 (280-300); Potassium 3.7 mEq/L (3.5-4.5); Sodium 139 mEq/L (136-145); eGFR For African Americans > 60 (> 60); eGFR For Non-African Americans 53 (> 60)
[2016-09-17] MEDS ORDERED: Acetaminophen 325 MG TABLET PO ONE ×2 (06:24→22:21)
[2016-09-17] MEDS: *HR* Heparin 5,000 UNIT/ML VIAL SQ SCH ×3 (06:30→22:00)
[2016-09-17] MEDS: Vancomycin Oral Soln 250 MG/2.5 ML UDC PO SCH ×5 (10:03→22:00)
[2016-09-17] MEDS: Isosorbide MONOnitrate (24 HR) 30 MG TAB.ER.24H PO SCH (10:03)
[2016-09-17] MEDS: Lactobacillus 1 EACH CAP.SPRINK PO SCH ×2 (10:03→21:59)
[2016-09-17] MEDS: Insulin DETEMIR 100 UNIT/ML X5UNITS SQ SCH ×2 (10:09→22:09)
[2016-09-17] MEDS: Insulin LISPRO 300 UNITS/3 ML VIAL SQ SCH ×4 (10:10→21:50)
--- NOTE | 2016-09-17 14:17 | Gastroenterology Consult Note ---
<Warren Quesada - Last Filed: 09/17/16 14:15> Date of Encounter: 09/17/16 Time of Encounter: 11:00 - Assessment and plan (1) C. difficile colitis Current Visit: Yes Status: Acute Assessment and plan: Continue PO Vancomycin. Plan for colonoscopy tomorrow. Clear liquid diet today, no red or purple. NPO at midnight. If unable tolerate NuLytely please use MiraLAX prep. If not clear by 6 AM, give 2 tap water enemas. (2) Fecal incontinence Current Visit: Yes Status: Acute Assessment and plan: Could be due to Cdiff. Will also check GI panel, fecal calprotectin, pancreatic elastase, and fecal fat. Plan for colonoscopy tomorrow. Qualifiers: Qualified Code(s): R15.9 - Full incontinence of feces (3) CHF (congestive heart failure) Current Visit: No Status: Chronic Qualifiers: Congestive heart failure type: diastolic Congestive heart failure chronicity: acute on chronic Qualified Code(s): 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 (4) A-fib Current Visit: No Status: Chronic Qualifiers: Atrial fibrillation type: chronic Qualified Code(s): I48.2 - Chronic atrial fibrillation - Time Spent With Patient Total time spent is greater than 50% in coordination of care (as documented) at patient's floor/unit and/or counseling patient: GI History of Present Illness - Data of Consult Patient: known to practice within the last 3 years Consult date: 09/17/16 Requesting Physician: Wandy Hu MD - Consult Narrative Reason for consult: Cdiff History of present illness: Mr. Pan is a 89 year old male with PMHx of Afib, CHF, COPD, DM, GERD, HLD, and HTN, who presented to the ED with c/o diarrhea for the past 4 months. Patient states having one bowel movement lasting for a hour or longer daily, usually after eating a meal. Diarrhea is also associated with fecal incontinence. Patient occasionally sees bright red blood in stool but states it' s likely from his hemorrhoid. Regarding stool color, patient reports it was very dark initially but now remains brown after being treated for C.diff at [facility] with Flagyl and Vanco. Patient denies abdominal pain, nausea, vomiting, anorexia, dyaphagia, fever, chills. Procedures: Colonoscopy 08/13/2016 Dr. Sharma: Stool in the entire examined colon, distal rectum and anal verge normal retroflexion. EGD 08/13/2016 Dr. Sharma: Normal NSAIDs: None Anticoagulation: None Past Med Surg Social Fam HX - Past Medical History Medical history: arthritis, atrial fibrillation, CHF, COPD, diabetes, GERD, hyperlipidemia, hypertension, osteoporosis, thyroid disease, other Psychiatric history: anxiety, depression - Past Surgical History Surgical History: appendectomy, cholecystectomy, knee replacement - Social History Smoking Status: Former smoker Smokeless Tobacco Status: No Alcohol use: occasionally Drug use: none - Family History Father Living Status: Age at : 97 Hx Family Cardiac Disorders: Yes (heart murmur) Hx Family Neurologic Disorders: Yes (Dementia) Mother Adopted: No Family Member Ethnicity: Non- Living Status: Age at : 70 Cause of : stroke Hx Family Cardiac Disorders: Yes (stroke) Hx Family Neuromuscular Disorders: Yes (Stroke at age 70s.) Hx Family Neurologic Disorders: Yes (seizures) - Gastrointestinal Gastrointestinal: Present: as per HPI - Constitutional Constitutional: as per HPI - EENT Eyes: as per HPI Ears: Present: as per HPI Nose, mouth and throat: Present: as per HPI - Cardiovascular Cardiovascular ROS: Present: as per HPI - Respiratory Respiratory IM: Present: as per HPI - Genitourinary Genitourinary: Absent: change in color, Urinary frequency - Neurological ROS Neurological GI: Present: as per HPI - Hematologic/Lymphatic Hematologic/Lymphatic pediatric: Present: as per HPI - Musculoskeletal Musculoskeletal ROS GI: Present: as per HPI - Integumentary Integumentary GI: Present: as per HPI - Psychiatric ROS Psychiatric GI: Present: as per HPI - Endocrine Endocrine IM: Present: as per HPI - Constitutional Vitals: Temp Pulse Resp BP Pulse Ox 97.5 F L 50 14 114/57 97 09/17/16 12:15 09/17/16 12:15 09/17/16 12:15 09/17/16 12:15 09/17/16 12:15 General appearance: Present: cooperative, A&O X 3, no acute distress, answers questions appropriately - Head Head exam: Present: atraumatic, normocephalic - Eye Eye exam: Present: normal appearance, sclera anicteric - ENT ENT exam: Present: mucous membranes moist - Neck Neck exam general surgery: Present: normal inspection, trachea midline - Respiratory Respiratory exam: Present: CTAB. Absent: rales, rhonchi - Cardiovascular Cardiovascular exam: Present: RRR, +S1, +S2 - GI/Abdominal GI/Abdominal exam: Present: soft, no peritoneal signs. Absent: distended, firm , guarding, tenderness - Rectal Rectal exam: Present: deferred - Extremities Exam Extremities exam: Present: warm - Neurological Exam Neurological exam: Present: no focal deficits - Psychiatric Psychiatric exam: Present: normal affect, normal mood - Skin Skin exam: Present: dry, intact, normal color, warm Results - Labs CBC & Chem 7: 09/17/16 04:37 09/17/16 04:37 Labs: Last Result Calcium 8.8 mg/dL (8.6-10.8) 09/17/16 04:37 Entire Visit Hgb 9.3 g/dL (12.9-16.9) L 09/17/16 04:37 Hct 29.9 % (37.5-50.1) L 09/17/16 04:37 PT 14.8 Seconds (9.4-12.1) H 09/15/16 18:26 Total Bilirubin 0.7 mg/dL (0.2-1.2) 09/15/16 18:26 AST 17 Units/L (5-34) 09/15/16 18:26 ALT 12 Units/L (0-55) 09/15/16 18:26 Amylase 36 Units/L (25-125) 09/15/16 18:26 Lipase 15 Units/L (8-78) 09/15/16 18:26 - ABG ABG results: PT/INR, D-dimer PT 14.8 Seconds (9.4-12.1) H 09/15/16 18:26 - Impressions Impressions Chest X-Ray 09/16/16 00:29 IMPRESSION: Small right pleural effusion and right lower lobe atelectatic changes. Cardiomegaly. D/ / 09/16/2016 07:48:41 Cherelle Reed MD / jj Interpreting Provider: Cherelle Reed MD X-Ray 09/16/16 00:29 IMPRESSION: No evidence of megacolon or other acute abdominal or pelvic abnormality. D/ / 09/16/2016 07:49:12 Cherelle Reed MD / jj Interpreting Provider: Cherelle Reed MD Consult Discharge Plan - Plan Referrals: Alonzo Kuhn MD [Primary Care Provider] - <Kimberley Sharma - Last Filed: 09/17/16 19:25> Date of Encounter: 09/17/16 Time of Encounter: 12:00 - Time Spent With Patient Total time spent is greater than 50% in coordination of care (as documented) at patient's floor/unit and/or counseling patient: GI History of Present Illness - Data of Consult Requesting Physician: Wandy Hu MD - Consult Narrative History of present illness: Mr. Pan is a 89 year old male - Constitutional Vitals: Temp Pulse Resp BP Pulse Ox 97.3 F L 64 16 117/57 93 09/17/16 15:30 09/17/16 15:30 09/17/16 16:13 09/17/16 15:30 09/17/16 16:13 Results - Labs CBC & Chem 7: 09/17/16 04:37 09/17/16 04:37 Labs: Last Result Calcium 8.8 mg/dL (8.6-10.8) 09/17/16 04:37 Entire Visit Hgb 9.3 g/dL (12.9-16.9) L 09/17/16 04:37 Hct 29.9 % (37.5-50.1) L 09/17/16 04:37 PT 14.8 Seconds (9.4-12.1) H 09/15/16 18:26 Total Bilirubin 0.7 mg/dL (0.2-1.2) 09/15/16 18:26 AST 17 Units/L (5-34) 09/15/16 18:26 ALT 12 Units/L (0-55) 09/15/16 18:26 Amylase 36 Units/L (25-125) 09/15/16 18:26 Lipase 15 Units/L (8-78) 09/15/16 18:26 - ABG ABG results: PT/INR, D-dimer PT 14.8 Seconds (9.4-12.1) H 09/15/16 18:26 - Impressions Impressions Chest X-Ray 09/16/16 00:29 IMPRESSION: Small right pleural effusion and right lower lobe atelectatic changes. Cardiomegaly. D/ / 09/16/2016 07:48:41 Cherelle Reed MD / jj Interpreting Provider: Cherelle Reed MD X-Ray 09/16/16 00:29 IMPRESSION: No evidence of megacolon or other acute abdominal or pelvic abnormality. D/ : / 09/16/2016 07:49:12 Cherelle Reed MD / jj Interpreting Provider: Cherelle Reed MD - Attending Attestation I examined this patient and my medical decision-making was reviewed with the SHEET MILL SUPERVISOR/PA/Advanced Practice Nurse/Resident Physician. I agree with the documented findings, disposition and treatment plan as described except to the extent set forth below. As diarrhea better, no colon for now
[2016-09-17] MEDS ORDERED: SODIUM CHLORIDE/NAHCO3/KCL/PEG 4,000 ML SOLN.RECON PO ONE (17:00)
--- NOTE | 2016-09-17 17:53 | Internal Med Progress Note ---
Date of Encounter: 09/17/16 Time of Encounter: 10:00 - Assessment and plan (1) C. difficile colitis Current Visit: Yes Status: Acute Assessment and plan: Pt has recent history of C. difficile. Will continue vancomycin by mouth and finish a 14 day course. - Lactobacillus po bid. - GI on case, plan for colonoscope. (2) CHF (congestive heart failure) Current Visit: No Status: Chronic Assessment and plan: Stable. No signs of exacerbation. 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 Qualifiers: Diabetes mellitus type: other specified (including HORTENCIA) Diabetes mellitus complication status: with unspecified complications Diabetes mellitus intermediate accountant insulin use: with group home use Qualified Code(s): E13.8 - Other specified diabetes mellitus with unspecified complications; Z79.4 - half-way ( 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 of insulin (4) Atrial fibrillation Current Visit: No Status: Chronic Assessment and plan: Heart rate is well controlled. Coumadin and aspirin were recently held due to significant anemia. Qualifiers: Atrial fibrillation type: paroxysmal Qualified Code(s): I48.0 - Paroxysmal atrial fibrillation (5) Chronic kidney disease, stage 3 Current Visit: No Status: Chronic Assessment and plan: Stable. Creatinine level is at about his baseline. (6) DVT prophylaxis Current Visit: No Status: Acute Assessment and plan: Heparin subcutaneously - Time Spent With Patient 25 - 35 minutes - Subjective Interval history: Patient is a 89-year-old male admitted for diarrhea. He was treated with antibiotic for pneumonia recently. His C. difficile test is positive. Past medical history is significant for CHF, CKD, A. fib, diabetes. Pt was seen and examined. His diarrhea has improved after treatment, had only 2 bowel movement since last night, stool is well formed but still loose. Vital signs stable. Mild abdominal pain on defecation. We will continue vancomycin by mouth for C. difficile. GI consult saw patient, plan for colonoscopy tomorrow. Closely monitor patient. - Constitutional Vitals: Temp Pulse Resp BP Pulse Ox 97.3 F L 64 16 117/57 93 09/17/16 15:30 09/17/16 15:30 09/17/16 16:13 09/17/16 15:30 09/17/16 16:13 General appearance: Present: cooperative, A&O X 3, no acute distress - Head Head exam: Present: atraumatic, normocephalic - Eye Eye exam: Present: PERRL, conjuntiva pink, sclera anicteric Pupils: Present: PERRL - Neck Neck exam general surgery: Present: supple, trachea midline. Absent: lymphadenopathy - Respiratory Respiratory exam: Present: CTAB. Absent: accessory muscle use, rales, rhonchi, wheezes - Cardiovascular Cardiovascular exam: Present: RRR, +S1, +S2. Absent: diastolic murmur, gallop, rubs, systolic murmur - GI/Abdominal GI/Abdominal exam: Present: normal bowel sounds, soft, no peritoneal signs. Absent: distended, tenderness - Extremities Exam Extremities exam: Present: warm, radial pulses palpable and symetrical. Absent : calf tenderness, cyanotic, pedal edema - Neurological Exam Neurological exam: Present: CN II-XII intact, oriented X3, no focal deficits. Absent: pronater drift, facial droop, speech deficit - Skin Skin exam: Present: dry, intact Internal Medicine: Result - Labs CBC & Chem 7: 09/17/16 04:37 09/17/16 04:37 Labs: Short CBC 09/17/16 Range/Units 04:37 WBC 6.2 (4.3-11.1) K/mcL Hgb 9.3 L (12.9-16.9) g/dL Hct 29.9 L (37.5-50.1) % Plt Count 155 (140-400) K/mcL Neutrophils # 4.1 (1.6-8.9) K/mcL BMP 09/17/16 04:37 Sodium 139 Potassium 3.7 Chloride 102 Carbon Dioxide 29 BUN 19 Creatinine 1.28 H Glucose 143 H Calcium 8.8 - ABG Interpretation ABG results: PT/INR, D-dimer PT 14.8 Seconds (9.4-12.1) H 09/15/16 18:26 - Impressions Impressions Chest X-Ray 09/16/16 00:29 IMPRESSION: Small right pleural effusion and right lower lobe atelectatic changes. Cardiomegaly. D/ / 09/16/2016 07:48:41 Cherelle Reed MD / jj Interpreting Provider: Cherelle Reed MD X-Ray 09/16/16 00:29 IMPRESSION: No evidence of megacolon or other acute abdominal or pelvic abnormality. D/ /16/2016 07:49:12 Cherelle Reed MD / jj Interpreting Provider: Cherelle Reed MD Consult Discharge Plan - Plan Referrals: Alonzo Kuhn MD [Primary Care Provider] -
[2016-09-18 05:23] LABS: Basophils % 0.8 %; Eosinophils # 0.2 K/mcL (0.0-0.6); Eosinophils % 2.8 %; Hematocrit 30.2 % (37.5-50.1); Hemoglobin 9.1 g/dL (12.9-16.9); Immature Granulocytes % 0.6 % (0-4); Lymphocytes % 18.9 %; Mean Corpuscular HGB Conc 30.1 g/dL (31.6-35.5); Mean Corpuscular Hemoglobin 26.5 pg (28.0-33.3); Mean Platelet Volume 9.8 fL (9.4-12.4); Monocytes # 0.7 K/mcL (0.0-1.3); Monocytes % 13.6 %; Neutrophils # 3.3 K/mcL (1.6-8.9); Platelet Count 154 K/mcL (140-400); Red Blood Count 3.43 M/mcL (4.19-5.50); Segmented Neutrophils % 63.3 %
[2016-09-18] MEDS: Ipratropium/Albuterol Neb 3 ML IH SCH ×4 (05:23→22:08)
[2016-09-18 05:33] LABS: BUN/Creatinine Ratio 16 (6-26); Blood Urea Nitrogen 19 mg/dL (8-26); Calcium 8.8 mg/dL (8.6-10.8); Carbon Dioxide 29 mEq/L (19-29); Chloride 104 mEq/L (98-109); Glucose 53 mg/dL (70-99); Osmolality,Calculated 290 (280-300); Potassium 3.4 mEq/L (3.5-4.5); Sodium 140 mEq/L (136-145); eGFR For African Americans > 60 (> 60); eGFR For Non-African Americans 59 (> 60)
[2016-09-18] MEDS: *HR* Heparin 5,000 UNIT/ML VIAL SQ SCH ×3 (05:43→21:37)
[2016-09-18] MEDS: Insulin LISPRO 300 UNITS/3 ML VIAL SQ SCH ×4 (07:48→21:37)
[2016-09-18] MEDS: Insulin DETEMIR 100 UNIT/ML X5UNITS SQ SCH ×2 (07:50→21:37)
[2016-09-18] MEDS: Isosorbide MONOnitrate (24 HR) 30 MG TAB.ER.24H PO SCH (07:50)
[2016-09-18] MEDS: Lactobacillus 1 EACH CAP.SPRINK PO SCH ×2 (07:50→21:36)
[2016-09-18] MEDS: Vancomycin Oral Soln 250 MG/2.5 ML UDC PO SCH ×4 (07:53→21:36)
--- NOTE | 2016-09-18 08:15 | Internal Med Progress Note ---
<David Avery - Last Filed: 09/18/16 11:30> Date of Encounter: 09/18/16 Time of Encounter: 08:12 - Assessment and plan (1) C. difficile colitis Current Visit: Yes Status: Acute Assessment and plan: Pt has recent history of C. difficile toxin on 09/15/2016. He is currently on oral vancomycin which she has been tolerating. Denies any associated nausea vomiting chest pain fevers or chills. Plan: -Continue oral vancomycin 250 mg 4 times a day - Lactobacillus po bid. - GI on case, plan for colonoscope. (2) Fecal incontinence Current Visit: Yes Status: Acute Assessment and plan: Patient has had frequent loose stools for roughly 4 months in length. He had a recent C. difficile toxin that was positive on 09/15/2016 but this may be from chronic colonization. The patient does not have any other associated concerning symptoms. Gastroenterology has been consult and a colonoscopy to be performed for further diagnostics. Qualifiers: Qualified Code(s): R15.9 - Full incontinence of feces (3) CHF (congestive heart failure) Current Visit: No Status: Chronic Assessment and plan: Patient is a known history of diastolic heart failure with an echocardiogram performed 03/15/2016 demonstrated severe concentric left ventricular hypertrophy with an LVEF of 60%. Moderate left ventricular diastolic dysfunction, atypical septal motion consistent with bundle branch block, mildly dilated right ventricular with normal-appearing function. Severely dilated right atrium. Moderate aortic stenosis the mean gradient of 26, mild tricuspid regurgitation. Moderate pulmonary hypertension, estimated RVSP of 48 - Does not appear to be in a heart failure exacerbation. Plan: -Continue fluid restrictions - Daily weights and strict input and output monitoring - When restarting diet diabetic/cardiac with low sodium 2 g max daily. 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 Blood pressure stable. Qualifiers: Hypertension type: essential hypertension Qualified Code(s): I10 - Essential (primary) hypertension (5) A-fib Current Visit: No Status: Chronic Assessment and plan: History of atrial fibrillation, restarting amiodarone. Heart rate stable and appropriate. Qualifiers: Atrial fibrillation type: chronic Qualified Code(s): I48.2 - Chronic atrial fibrillation (6) CAD (coronary artery disease) Current Visit: No Status: Chronic Assessment and plan: Patient is a history of coronary artery disease and diastolic heart failure. We will continue statin, beta fermin and aspirin. Qualifiers: Coronary Disease-Associated Artery/Lesion type: [place] artery [place] vs. transplanted heart: [place] heart Associated angina: without angina Qualified Code(s): I25.10 - Atherosclerotic heart disease of [place] coronary artery without angina pectoris (7) COPD (chronic obstructive pulmonary disease) Current Visit: No Status: Chronic Assessment and plan: Patient is a known history of COPD, pulmonary hypertension seen on echocardiogram. -Continue DuoNeb's and breathing treatments. Qualifiers: COPD type: emphysema Emphysema type: panlobular Qualified Code(s): J43.1 - Panlobular emphysema (8) Anemia Current Visit: No Status: Acute Assessment and plan: Patient has a history of iron deficiency anemia. Repeat iron studies demonstrate an iron of 21, percent saturation of 9. -Patient will receive 400 mg IV iron. Qualifiers: Anemia type: iron deficiency Iron deficiency anemia type: chronic blood loss Qualified Code(s): D50.0 - Iron deficiency anemia secondary to blood loss (chronic) - Subjective Interval history: Mr. Pan 89-year-old male has been seen and evaluated patient bedside this morning. He said that he plans for a colonoscopy tomorrow and is continuing to have brown stools despite being on the GoLYTELY prep. He denies painless bowel movements with occasional streaks of blood which she relates to his hemorrhoids. He has been having loose bowel movements with a concern for C. difficile but given the length of time and without fevers chills abdominal pains or other concerning findings this may be of other source. Today he is doing well without nausea vomiting chest pain palpitations or abdominal discomforts. He says that his lower extremity swelling is chronic in nature for which she has had for many years. - Constitutional Vitals: Temp Pulse Resp BP Pulse Ox 97.9 F 67 16 113/52 96 09/18/16 07:49 09/18/16 07:49 09/18/16 07:49 09/18/16 07:49 09/18/16 07:49 General appearance: Present: cooperative, A&O X 3, no acute distress - Head Head exam: Present: atraumatic, normocephalic - Eye Eye exam: Present: PERRL, conjuntiva pink, sclera anicteric Pupils: Present: PERRL - ENT ENT exam: Present: mucous membranes moist - Neck Neck exam general surgery: Present: supple, trachea midline. Absent: lymphadenopathy - Respiratory Respiratory exam: Present: CTAB. Absent: accessory muscle use, rales, rhonchi, wheezes - Cardiovascular Cardiovascular exam: Present: RRR Additional comments: Systolic ejection murmur likely aortic stenosis. - GI/Abdominal GI/Abdominal exam: Present: distended, normal bowel sounds, soft, no peritoneal signs. Absent: tenderness - Extremities Exam Extremities exam: Present: warm, radial pulses palpable and symetrical. Absent : tenderness Additional comments: Bilateral lower extremity demonstrates 2+ pitting edema with erythema is blanchable likely secondary to venous stasis. No signs of weeping or ulceration. - Neurological Exam Neurological exam: Present: alert, oriented X3, no focal deficits. Absent: pronater drift, facial droop, speech deficit - Psychiatric Psychiatric exam: Present: normal affect, normal mood Internal Medicine: Result - Labs CBC & Chem 7: 09/18/16 04:59 09/18/16 04:59 Labs: Short CBC 09/18/16 Range/Units 04:59 WBC 5.3 (4.3-11.1) K/mcL Hgb 9.1 L (12.9-16.9) g/dL Hct 30.2 L (37.5-50.1) % Plt Count 154 (140-400) K/mcL Neutrophils # 3.3 (1.6-8.9) K/mcL BMP 09/18/16 04:59 Sodium 140 Potassium 3.4 L Chloride 104 Carbon Dioxide 29 BUN 19 Creatinine 1.16 Glucose 53 L Calcium 8.8 - ABG Interpretation ABG results: PT/INR, D-dimer PT 14.8 Seconds (9.4-12.1) H 09/15/16 18:26 Consult Discharge Plan - Plan Referrals: Alonzo Kuhn MD [Primary Care Provider] - 09/24/16 3:00 pm <Daniel Navarro - Last Filed: 09/18/16 17:27> Date of Encounter: 09/18/16 - Constitutional Vitals: Temp Pulse Resp BP Pulse Ox 97.3 F L 57 16 104/55 97 09/18/16 15:41 09/18/16 15:41 09/18/16 15:46 09/18/16 15:41 09/18/16 15:46 Internal Medicine: Result - Labs CBC & Chem 7: 09/18/16 04:59 09/18/16 04:59 Labs: Short CBC 09/18/16 Range/Units 04:59 WBC 5.3 (4.3-11.1) K/mcL Hgb 9.1 L (12.9-16.9) g/dL Hct 30.2 L (37.5-50.1) % Plt Count 154 (140-400) K/mcL Neutrophils # 3.3 (1.6-8.9) K/mcL BMP 09/18/16 04:59 Sodium 140 Potassium 3.4 L Chloride 104 Carbon Dioxide 29 BUN 19 Creatinine 1.16 Glucose 53 L Calcium 8.8 - ABG Interpretation ABG results: PT/INR, D-dimer PT 14.8 Seconds (9.4-12.1) H 09/15/16 18:26 - Attending Attestation I examined this patient and my medical decision-making was reviewed with the Resident Physician, Dr Avery. I agree with the documented findings, disposition and treatment plan as described except to the extent set forth below. On exam he is in no acute distress awake alert oriented. Heart auscultation reveals S1-S2 with a 3/6 systolic murmur. Extremities have 2+ pitting edema bilaterally. We will continue with vancomycin 4 times daily. His diarrhea has been improving. White count is normal. Plan for colonoscopy in the morning.
[2016-09-18 08:38] LABS: Adenovirus F 40/41 PCR Not detected (Not detect); Astrovirus PCR Not detected (Not detect); Campylobacter by PCR Not detected (Not detect); Cryptosporidium by PCR Not detected (Not detect); Cyclospora cayetanensis PCR Not detected (Not detect); E. coli O157 by PCR Not detected (Not detect); Entamoeba histolytica PCR Not detected (Not detect); Enteroaggregative E.coli(EAEC) Not detected (Not detect); Enteropathogenic E.coli(EPEC) Not detected (Not detect); Enterotoxigenic E.coli (ETEC) Not detected (Not detect); Giardia lamblia PCR Not detected (Not detect); Norovirus GI/GII PCR Not detected (Not detect); Plesiomonas shigelloides PCR Not detected (Not detect); Rotavirus A PCR Not detected (Not detect); Salmonella PCR Not detected (Not detect); Sapovirus PCR Not detected (Not detect); Shig/EnteroinvasiveE coli EIEC Not detected (Not detect); Shigalike tox-prod E coli STEC Not detected (Not detect); Vibrio PCR Not detected (Not detect); Vibrio cholerae PCR Not detected (Not detect); Yersinia enterocolitica PCR Not detected (Not detect)
[2016-09-18 08:50] LABS: % Iron Saturation 9 % (20-55); Iron 21 mcg/dL (65-175); Transferrin 176 mg/dL (174-364)
[2016-09-18 09:10] LABS: Ferritin 57 ng/ml (22-275)
[2016-09-18] MEDS ORDERED: Iron Sucrose Complex 400 MG in 0.9 % Sodium Chloride 250 ML IVPB ONE (11:49)
[2016-09-18 12:06] LABS: Phosphorous 3.4 mg/dL (2.3-4.7)
[2016-09-18] MEDS ORDERED: SODIUM CHLORIDE/NAHCO3/KCL/PEG 4,000 ML SOLN.RECON PO ONE (17:00)
[2016-09-19] MEDS ORDERED: Acetaminophen 650 MG RECTAL SUPP RC PRN (00:47)
[2016-09-19] MEDS: Acetaminophen 325 MG TABLET PO PRN ×2 (01:08→12:12)
[2016-09-19] MEDS: Ipratropium/Albuterol Neb 3 ML IH SCH ×4 (04:06→22:35)
[2016-09-19] MEDS: *HR* Heparin 5,000 UNIT/ML VIAL SQ SCH ×3 (05:32→23:33)
[2016-09-19 06:00] LABS: Basophils % 0.8 %; Eosinophils # 0.2 K/mcL (0.0-0.6); Eosinophils % 3.2 %; Hematocrit 30.3 % (37.5-50.1); Hemoglobin 9.2 g/dL (12.9-16.9); Immature Granulocytes % 0.4 % (0-4); Lymphocytes % 20.3 %; Mean Corpuscular HGB Conc 30.4 g/dL (31.6-35.5); Mean Corpuscular Hemoglobin 27.4 pg (28.0-33.3); Mean Corpuscular Volume 90.2 fL (83.0-100.0); Mean Platelet Volume 9.8 fL (9.4-12.4); Monocytes # 0.7 K/mcL (0.0-1.3); Monocytes % 14.1 %; Platelet Count 152 K/mcL (140-400); Red Blood Count 3.36 M/mcL (4.19-5.50); Segmented Neutrophils % 61.2 %
[2016-09-19 06:20] LABS: Alanine Aminotransferase 9 Units/L (0-55); Albumin 2.9 g/dL (3.5-5.0); Albumin/Globulin Ratio 0.9 (1.1-2.2); Alkaline Phosphatase 52 Units/L (38-126); Aspartate Amino Transferase 15 Units/L (5-34); BUN/Creatinine Ratio 12 (6-26); Bilirubin,Total 0.3 mg/dL (0.2-1.2); Blood Urea Nitrogen 14 mg/dL (8-26); Calcium 8.7 mg/dL (8.6-10.8); Carbon Dioxide 30 mEq/L (19-29); Chloride 103 mEq/L (98-109); Globulin 3.4 g/dL (2.4-3.5); Glucose 56 mg/dL (70-99); Magnesium 1.7 mg/dL (1.6-2.6); Osmolality,Calculated 284 (280-300); Potassium 3.4 mEq/L (3.5-4.5); Sodium 138 mEq/L (136-145); Total Protein 6.3 g/dL (6.0-8.3); eGFR For African Americans > 60 (> 60); eGFR For Non-African Americans > 60 (> 60)
[2016-09-19] MEDS: Lactobacillus 1 EACH CAP.SPRINK PO SCH ×2 (07:42→21:14)
[2016-09-19] MEDS: Insulin LISPRO 300 UNITS/3 ML VIAL SQ SCH ×4 (07:42→21:14)
[2016-09-19] MEDS: *HR* Amiodarone 200 MG TABLET PO SCH (07:42)
[2016-09-19] MEDS: Isosorbide MONOnitrate (24 HR) 30 MG TAB.ER.24H PO SCH (07:43)
[2016-09-19] MEDS: Insulin DETEMIR 100 UNIT/ML X5UNITS SQ SCH (07:43)
[2016-09-19] MEDS: Vancomycin Oral Soln 250 MG/2.5 ML UDC PO SCH ×4 (07:43→21:15)
--- NOTE | 2016-09-19 13:51 | Internal Med Progress Note ---
<David Avery - Last Filed: 09/19/16 14:08> Date of Encounter: 09/19/16 Time of Encounter: 08:00 - Assessment and plan (1) C. difficile colitis Current Visit: Yes Status: Acute Assessment and plan: Pt has recent history of C. difficile toxin on 09/15/2016. He is currently on oral vancomycin which she has been tolerating. Denies any associated nausea vomiting chest pain fevers or chills. 09/19/2016: Patient is stable, without nausea or vomiting. Tolerating GoLYTELY prep. Looking forward to study this evening. Plan: -Continue oral vancomycin 250 mg 4 times a day (day 08/31) - Lactobacillus po bid. - GI on case, plan for colonoscopy this evening. (2) Fecal incontinence Current Visit: Yes Status: Acute Assessment and plan: Patient has had frequent loose stools for roughly 4 months in length. He had a recent C. difficile toxin that was positive on 09/15/2016 but this may be from chronic colonization. The patient does not have any other associated concerning symptoms. Gastroenterology has been consult and a colonoscopy to be performed for further diagnostics. Qualifiers: Qualified Code(s): R15.9 - Full incontinence of feces (3) CHF (congestive heart failure) Current Visit: No Status: Chronic Assessment and plan: Patient is a known history of diastolic heart failure with an echocardiogram performed 03/15/2016 demonstrated severe concentric left ventricular hypertrophy with an LVEF of 60%. Moderate left ventricular diastolic dysfunction, atypical septal motion consistent with bundle branch block, mildly dilated right ventricular with normal-appearing function. Severely dilated right atrium. Moderate aortic stenosis the mean gradient of 26, mild tricuspid regurgitation. Moderate pulmonary hypertension, estimated RVSP of 48 - Does not appear to be in a heart failure exacerbation. Plan: -Continue fluid restrictions - Daily weights and strict input and output monitoring - When restarting diet diabetic/cardiac with low sodium 2 g max daily. - Continue beta fermin - Aspirin - Continue statin - Continue amiodarone - Restart home dose Lasix. 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 Blood pressure stable. Qualifiers: Hypertension type: essential hypertension Qualified Code(s): I10 - Essential (primary) hypertension (5) A-fib Current Visit: No Status: Chronic Assessment and plan: History of atrial fibrillation, continue amiodarone. Heart rate stable and appropriate. Qualifiers: Atrial fibrillation type: chronic Qualified Code(s): I48.2 - Chronic atrial fibrillation (6) CAD (coronary artery disease) Current Visit: No Status: Chronic Assessment and plan: Patient is a history of coronary artery disease and diastolic heart failure. We will continue statin, beta fermin and aspirin. Qualifiers: Coronary Disease-Associated Artery/Lesion type: [place] artery [place] vs. transplanted heart: [place] heart Associated angina: without angina Qualified Code(s): I25.10 - Atherosclerotic heart disease of [place] coronary artery without angina pectoris (7) COPD (chronic obstructive pulmonary disease) Current Visit: No Status: Chronic Assessment and plan: Patient is a known history of COPD, pulmonary hypertension seen on echocardiogram. -Continue DuoNeb's and breathing treatments. Qualifiers: COPD type: emphysema Emphysema type: panlobular Qualified Code(s): J43.1 - Panlobular emphysema (8) Anemia Current Visit: No Status: Acute Assessment and plan: Patient has a history of iron deficiency anemia. Repeat iron studies demonstrate an iron of 21, percent saturation of 9. Received 400 mg IV iron yesterday. Today's hemoglobin 9.2. Qualifiers: Anemia type: iron deficiency Iron deficiency anemia type: chronic blood loss Qualified Code(s): D50.0 - Iron deficiency anemia secondary to blood loss (chronic) - Subjective Interval history: Mr. Pan 89-year-old male has been seen and evaluated patient bedside this morning. He slept well overnight without any concerns or complaints. He has not had a bowel movement since late last evening but tolerated bowel prep. He is awaiting colonoscopy without concerns at this time. Denies any fevers, chills, chest pain, palpitations, shortness of breath, abdominal pain nausea or vomiting. He denies pain in his lower extremities. - Constitutional Vitals: Temp Pulse Resp BP Pulse Ox 97.0 F L 53 12 144/56 96 09/19/16 10:56 09/19/16 10:56 09/19/16 10:56 09/19/16 10:56 05/03/17 10:56 General appearance: Present: cooperative, A&O X 3, no acute distress - Head Head exam: Present: atraumatic, normocephalic - Eye Eye exam: Present: PERRL, conjuntiva pink, sclera anicteric Pupils: Present: PERRL - ENT ENT exam: Present: mucous membranes moist - Neck Neck exam general surgery: Present: supple, trachea midline. Absent: lymphadenopathy - Respiratory Respiratory exam: Present: CTAB. Absent: accessory muscle use, rales, rhonchi, wheezes - Cardiovascular Cardiovascular exam: Present: irregular rhythm, systolic murmur (Appears to be aortic in nature.) - GI/Abdominal GI/Abdominal exam: Present: normal bowel sounds, soft, no peritoneal signs. Absent: distended, tenderness - Extremities Exam Extremities exam: Present: warm, radial pulses palpable and symetrical. Absent : calf tenderness (bilateral LE edema with 2+ pitting edema and venous stasis.) , cyanotic, pedal edema - Neurological Exam Neurological exam: Present: alert, oriented X3, no focal deficits. Absent: pronater drift, facial droop, speech deficit - Psychiatric Psychiatric exam: Present: normal affect, normal mood Internal Medicine: Result - Labs CBC & Chem 7: 09/19/16 05:14 09/19/16 05:14 Labs: Short CBC 09/19/16 Range/Units 05:14 WBC 5.0 (4.3-11.1) K/mcL Hgb 9.2 L (12.9-16.9) g/dL Hct 30.3 L (37.5-50.1) % Plt Count 152 (140-400) K/mcL Neutrophils # 3.0 (1.6-8.9) K/mcL BMP 09/19/16 05:14 Sodium 138 Potassium 3.4 L Chloride 103 Carbon Dioxide 30 H BUN 14 Creatinine 1.13 Glucose 56 L Calcium 8.7 Liver Function 09/19/16 Range/Units 05:14 Total Bilirubin 0.3 (0.2-1.2) mg/dL AST 15 (5-34) Units/L ALT 9 (0-55) Units/L Alkaline Phosphatase 52 (38-126) Units/L Albumin 2.9 L (3.5-5.0) g/dL - ABG Interpretation ABG results: PT/INR, D-dimer PT 14.8 Seconds (9.4-12.1) H 09/15/16 18:26 Consult Discharge Plan - Plan Referrals: Alonzo Kuhn MD [Primary Care Provider] - 09/24/16 3:00 pm <Daniel Navarro - Last Filed: 09/19/16 18:57> Date of Encounter: 09/19/16 - Constitutional Vitals: Temp Pulse Resp BP Pulse Ox 97.2 F L 55 16 127/61 99 09/19/16 18:30 09/19/16 18:30 09/19/16 18:30 09/19/16 18:30 09/19/16 18:30 Internal Medicine: Result - Labs CBC & Chem 7: 09/19/16 05:14 09/19/16 05:14 Labs: Short CBC 09/19/16 Range/Units 05:14 WBC 5.0 (4.3-11.1) K/mcL Hgb 9.2 L (12.9-16.9) g/dL Hct 30.3 L (37.5-50.1) % Plt Count 152 (140-400) K/mcL Neutrophils # 3.0 (1.6-8.9) K/mcL BMP 09/19/16 05:14 Sodium 138 Potassium 3.4 L Chloride 103 Carbon Dioxide 30 H BUN 14 Creatinine 1.13 Glucose 56 L Calcium 8.7 Liver Function 09/19/16 Range/Units 05:14 Total Bilirubin 0.3 (0.2-1.2) mg/dL AST 15 (5-34) Units/L ALT 9 (0-55) Units/L Alkaline Phosphatase 52 (38-126) Units/L Albumin 2.9 L (3.5-5.0) g/dL - ABG Interpretation ABG results: PT/INR, D-dimer PT 14.8 Seconds (9.4-12.1) H 09/15/16 18:26 - Attending Attestation I examined this patient and my medical decision-making was reviewed with the Resident Physician, Dr Avery. I agree with the documented findings, disposition and treatment plan as described except to the extent set forth below. The patient appears in no acute distress he is awake alert oriented 3. Heart exam reveals regular S1 and S2 with a 4/6 systolic ejection murmur. Abdomen is soft and nontender. Extremities with 2+ lower extremity pitting edema. Plan: Colonoscopy today. Follow up results. Continue with oral vancomycin.
[2016-09-19] MEDS ORDERED: *HR* Midazolam HCl 5 MG/5 ML VIAL IVP ONE (16:53)
[2016-09-19] MEDS ORDERED: *HR* FentaNYL (PF) 100 MCG/2 ML VIAL ONE (16:54)
[2016-09-19] MEDS ORDERED: *HR* Midazolam HCl 5 MG/5 ML VIAL IVP PRN (17:29)
[2016-09-19] MEDS ORDERED: Simethicone 40 MG/0.6 ML MLS IR ONE (17:29)
[2016-09-19] MEDS ORDERED: *HR* FentaNYL (PF) 100 MCG/2 ML VIAL IVP PRN (17:29)
--- NOTE | 2016-09-19 17:30 | Pre-Sedation Evaluation ---
Pre-sedation evaluation - Pre-sedation checklist Date of procedure: 09/19/16 Procedure: Colonoscopy Recent Vitals: Last Vital Signs Temp 98.1 F 09/19/16 14:56 Pulse 656 09/19/16 17:04 Resp 17 09/19/16 17:04 BP 124/67 09/19/16 17:04 Pulse Ox 90 09/19/16 17:04 H&P (including ROS) documented in medical record: Yes Previous reaction to sedatives/anesthetics: No Dietary Status: NPO after Midnight Dentition: dentures removed ASA Classification *see protocol: CLASS III-Severe systemic disease Plan of Care: Pt appropriate candidate for procedure/moderate/conscious sedation , Risks/benefits of procedure/sedation discussed w/ patient/family
[2016-09-20] MEDS: Ipratropium/Albuterol Neb 3 ML IH SCH ×2 (04:48→11:21)
[2016-09-20 05:26] LABS: Basophils # 0.1 K/mcL (0.0-0.2); Basophils % 1.3 %; Eosinophils # 0.1 K/mcL (0.0-0.6); Eosinophils % 2.4 %; Hemoglobin 9.3 g/dL (12.9-16.9); Immature Granulocytes % 0.2 % (0-4); Lymphocytes # 0.7 K/mcL (0.6-4.6); Lymphocytes % 16.3 %; Mean Corpuscular Volume 90.1 fL (83.0-100.0); Mean Platelet Volume 9.8 fL (9.4-12.4); Monocytes # 0.7 K/mcL (0.0-1.3); Monocytes % 14.5 %; Neutrophils # 2.9 K/mcL (1.6-8.9); Platelet Count 151 K/mcL (140-400); Red Blood Count 3.44 M/mcL (4.19-5.50); Red Cell Distribution Width 17.1 % (11.5-14.5); Segmented Neutrophils % 65.3 %
[2016-09-20] MEDS: *HR* Heparin 5,000 UNIT/ML VIAL SQ SCH ×2 (06:26→14:56)
[2016-09-20] MEDS ORDERED: Furosemide 40 MG TABLET PO SCH (09:00)
[2016-09-20] MEDS: Lactobacillus 1 EACH CAP.SPRINK PO SCH (09:24)
[2016-09-20] MEDS: Insulin LISPRO 300 UNITS/3 ML VIAL SQ SCH ×2 (09:25→12:28)
[2016-09-20] MEDS: Vancomycin Oral Soln 250 MG/2.5 ML UDC PO SCH ×2 (09:25→14:56)
[2016-09-20] MEDS: *HR* Amiodarone 200 MG TABLET PO SCH (09:25)
[2016-09-20] MEDS: Isosorbide MONOnitrate (24 HR) 30 MG TAB.ER.24H PO SCH (09:26)
[2016-09-20 10:43] VITALS: BP 118/54
--- NOTE | 2016-09-20 11:28 | Discharge Summary ---
<David Avery - Last Filed: 09/20/16 15:24> Date of Encounter: 09/20/16 Time of Encounter: 11:26 - Discharge Diagnosis (1) C. difficile colitis Priority: Primary Status: Acute (2) Fecal incontinence Priority: Primary Status: Acute Qualifiers: Qualified Code(s): R15.9 - Full incontinence of feces (3) CHF (congestive heart failure) Priority: Secondary Status: Chronic Qualifiers: Congestive heart failure type: diastolic Congestive heart failure chronicity: acute on chronic Qualified Code(s): 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 (4) Hypertension Priority: Secondary Status: Chronic Qualifiers: Hypertension type: essential hypertension Qualified Code(s): I10 - Essential (primary) hypertension (5) A-fib Priority: Secondary Status: Chronic Qualifiers: Atrial fibrillation type: chronic Qualified Code(s): I48.2 - Chronic atrial fibrillation (6) CAD (coronary artery disease) Priority: Secondary Status: Chronic Qualifiers: Coronary Disease-Associated Artery/Lesion type: [place] artery [place] vs. transplanted heart: [place] heart Associated angina: without angina Qualified Code(s): I25.10 - Atherosclerotic heart disease of [place] coronary artery without angina pectoris (7) COPD (chronic obstructive pulmonary disease) Priority: Secondary Status: Chronic Qualifiers: COPD type: emphysema Emphysema type: panlobular Qualified Code(s): J43.1 - Panlobular emphysema (8) Anemia Priority: Primary Status: Acute Qualifiers: Anemia type: iron deficiency Iron deficiency anemia type: chronic blood loss Qualified Code(s): D50.0 - Iron deficiency anemia secondary to blood loss (chronic) - Discharge Medications Prescriptions: Lactobacillus [Culturelle] 1 each PO BID #60 cap.sprink Sennosides/Docusate Sodium [Senna Plus] 1 each PO DAILY #30 tablet Simethicone [Anti-Gas] 180 mg PO BID 5 Days Vancomycin Oral Soln [Vancocin] 250 mg PO QID 9 Days Home Medications: Albuterol Sulfate [Albuterol Inhaler] 2 puff IH Q4HR PRN 06/02/15 [History] Calcitonin Nasal [place] [Miacalcin Nasal [place]] 1 spray NS DAILY 06/02/15 [ History] HYDROcodone/Acet 5/325 mg [Franklin 5-325 mg] 1 tab PO QAM 06/02/15 [History] Insulin ASPART [NovoLOG] 2 - 14 unit SQ TIDWM 06/02/15 [History] Insulin NPH, HUMAN [HumuLIN N] 54 unit SQ BID 06/02/15 [History] Levothyroxine [Synthroid] 50 mcg PO QAM 06/02/15 [History] Metoprolol [Lopressor] 50 mg PO BID 06/02/15 [History] Acetaminophen/Diphenhydramine [Acetaminophen Pm Caplet] 1 tab PO HS 01/12/16 [ History] Ipratropium/Albuterol Neb [Duoneb] 3 ml IH QID 03/15/16 [History] Isosorbide MONOnitrate (24 HR) [Imdur] 30 mg PO DAILY 08/09/16 [History] Furosemide [Lasix] 40 mg PO DAILY #30 tablet 08/14/16 [Rx] Magic Mouthwash [Magic Mouthwash BLM] 10 ml PO QID PRN #240 ml 09/01/16 [Rx] Amiodarone [Cordarone] 200 mg PO DAILY 09/16/16 [History] Pantoprazole Sodium [Protonix] 40 mg PO DAILY 09/16/16 [History] Pravastatin Sodium [Pravachol] 40 mg PO DAILY 09/16/16 [History] Lactobacillus [Culturelle] 1 each PO BID #60 cap.sprink 09/20/16 [Rx] Sennosides/Docusate Sodium [Senna Plus] 1 each PO DAILY #30 tablet 09/20/16 [Rx] Simethicone [Anti-Gas] 180 mg PO BID 5 Days 09/20/16 [Rx] Vancomycin Oral Soln [Vancocin] 250 mg PO QID 9 Days 09/20/16 [Rx] Allergies/Adverse Reactions: Allergies No Known Allergies Allergy (Verified 09/01/16 01:35) Date of admission: 09/15/16 22:53 Primary care physician: Alonzo Kuhn MD Consults: 09/16/16 05:13 Consult to Gastroenterology [CONS] Routine Consulting Provider: Gastroenterology Anita Reason for Consult: C diff diarrhea Call Completed: No Discharging clinician: David Avery Anticipated date of discharge: 09/20/16 - Patient Status Disposition: Home Health Service Condition: Good Functional capacity at discharge: independent ambulation Overall status at discharge: patient is progressing back to baseline - Discharge Instructions Instructions: Clostridium Difficile Infection (DC) Follow Up With: Alonzo Kuhn MD [Primary Care Provider] - 09/24/16 3:00 pm Kimberley Sharma MD [Partnered Physician] - (Please have your stool test completed on November 09. This will be after all your antibiotics are completed. If you have any questions please call the office and ask. Thank you) Additional Instructions: I recommend completing oral antibiotic course Follow up with PCP for completion of vancomycin taper Follow up with gastroenterology to discuss results - Diet and Activity Activity: increase activity as tolerated Diet: advance to your usual diet Interval History: Mr. Pan is a 89 year old male with diastolic CHF, A-fib, mild to moderate aortic stenosis, DM2, HTN and GERD. Patient presented to [place] ED with the complaint of diarrhea. 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 C. difficile toxin was positive. He was placed on oral vancomycin 250 mg 4 times a day. He was started on lactobacillus by mouth twice a day. Gastroenterology was consulted and evaluated the patient. Colonoscopy was discussed and he was started on GoLYTELY prep for plans for colonoscopy. During his inpatient stay use treated for his chronic medical conditions including CHF, CAD, atrial fibrillation, hypertension and diabetes. His laboratory work remained stable, kidney function was appropriate, vitals were stable throughout his inpatient stay. He underwent colonoscopy on 09/19/2016 which demonstrated diverticulosis of the sigmoid colon, scattered mild inflammation was found in the sigmoid colon secondary to colitis. In biopsy. Internal hemorrhoids. One 5 mm nonbleeding polyp in the sigmoid colon was removed with hot snare, resected and retrieved. One 6 mm nonbleeding polyp in the ascending colon removed with hot snare. Resected and treated. Biopsies are sent to pathology with results pending. On the day of discharge 09/20/2016 Mr. Pan did complain of some discomfort in the left upper quadrant. This demonstrated tympany on examination with bloating likely secondary to colon gas. - Mr. Pan was provided a prescription of 250 mg by mouth vancomycin 4 times a day for the remainder (9 days) of a 14 day course. He was highly recommended to follow up with his primary care provider to continue vancomycin tapering which she continue with 125 mg vancomycin twice a day for one week then once daily for one week, then once daily q2-3 days for 2-8 weeks. The remainder of the taper should be provided by the patient's primary care provider. - He was provided a prescription for simethicone for bowel gas, senna + for post colonoscopy constipation. Hospital course: Mr. Pan is a 89 year old male - Time Spent with Patient Total time spent providing and/or coordinating discharge services: - Constitutional Vitals: Temp Pulse Resp BP Pulse Ox 98.4 F 77 20 118/54 93 09/20/16 10:41 09/20/16 10:41 09/20/16 10:41 09/20/16 10:41 09/20/16 10:41 General appearance: Present: cooperative, A&O X 3, no acute distress - Head Head exam: Present: atraumatic, normocephalic - Eye Eye exam: Present: PERRL, conjuntiva pink, sclera anicteric Pupils: Present: PERRL - ENT ENT exam: Present: mucous membranes moist - Neck Neck exam general surgery: Present: supple, trachea midline. Absent: lymphadenopathy - Respiratory Respiratory exam: Present: CTAB - Cardiovascular Cardiovascular exam: Present: systolic murmur Additional comments: aortic ejection murmur - GI/Abdominal GI/Abdominal exam: Present: normal bowel sounds, soft, no peritoneal signs. Absent: distended, tenderness - Extremities Exam Additional comments: bilateral LE venous stasis. - Neurological Exam Neurological exam: Present: alert, oriented X3, no focal deficits. Absent: pronater drift, facial droop, speech deficit - Psychiatric Psychiatric exam: Present: normal affect, normal mood <Daniel Navarro - Last Filed: 09/20/16 18:09> Date of Encounter: 09/20/16 Date of admission: 09/15/16 22:53 Primary care physician: Alonzo Kuhn MD Consults: 09/16/16 05:13 Consult to Gastroenterology [CONS] Routine Consulting Provider: Gastroenterology Anita Reason for Consult: C diff diarrhea Call Completed: No Hospital course: Mr. Pan is a 89 year old male - Time Spent with Patient Total time spent providing and/or coordinating discharge services: - Constitutional Vitals: Temp Pulse Resp BP Pulse Ox 98.4 F 77 18 118/54 94 09/20/16 10:41 09/20/16 10:41 09/20/16 11:21 09/20/16 10:41 09/20/16 11:21 - Attending Attestation I examined this patient and my medical decision-making was reviewed with the Resident Physician, Dr Avery. I agree with the documented findings, disposition and treatment plan as described except to the extent set forth below. Patient reports left upper quadrant abdominal pain, mild to moderate, on and off , it is relieved when he sits up in bed and worse with lying down. On examination he is in no acute distress awake alert oriented abdomen is soft tender to palpation in the left upper quadrant with no guarding or rebound tenderness. It is tympanic to percussion. I suspect colonic distention and gas pain due to recent colonoscopy and we will prescribed simethicone. The pain could also be related to mild sigmoid colitis which was found on colonoscopy and exacerbated by colon prep with GoLYTELY. Given the benign physical findings on abdominal exam I have no reason to suspect perforation or any other serious complication after colonoscopy and therefore I recommend no further testing. I would but advised the patient and the family that if the patient gets poor suck does not resolve in 2 days to return promptly to the hospital. I advised continuing with Franklin per his home dose for abdominal pain. I have spent 40 minutes coordinating this discharge. The patient and his expressed understanding and agreement with the discharge planning. On my reevaluation prior to discharge the patient reported 0/10 abdominal pain.
[2016-09-20] MEDS: Acetaminophen 325 MG TABLET PO PRN (11:32)
--- NOTE | 2016-09-20 11:49 | Gastroenterology Progress Note ---
Date of Encounter: 09/20/16 Time of Encounter: 11:00 - Assessment and plan (1) C. difficile colitis Current Visit: Yes Status: Acute Assessment and plan: Start Vancomycin taper 125 mg PO 4 times a day 1 week, 3 times a day 1 week, daily 1 week, every other day 2 weeks, every 3 days 2 weeks. Culturelle 1 g twice a day, Imodium 1-2 tabs daily PRN. (2) Fecal incontinence Current Visit: Yes Status: Acute Assessment and plan: Likely due to Cdiff. Fecal calprotectin, pancreatic elastase, and fecal fat ordered. Qualifiers: Qualified Code(s): R15.9 - Full incontinence of feces (3) CHF (congestive heart failure) Current Visit: No Status: Chronic Qualifiers: Congestive heart failure type: diastolic Congestive heart failure chronicity: acute on chronic Qualified Code(s): 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 (4) A-fib Current Visit: No Status: Chronic Qualifiers: Atrial fibrillation type: chronic Qualified Code(s): I48.2 - Chronic atrial fibrillation - Time Spent With Patient Total time spent is greater than 50% in coordination of care (as documented) at patient's floor/unit and/or counseling patient: - Subjective Interval history: Pt resting in bed without acute complaint at this time. Pt states he is ready to be discharged home today. - Constitutional Vitals: Temp Pulse Resp BP Pulse Ox 98.4 F 77 20 118/54 93 09/20/16 10:41 09/20/16 10:41 09/20/16 10:41 09/20/16 10:41 09/20/16 10:41 General appearance: Present: cooperative, A&O X 3, no acute distress, answers questions appropriately - Head Head exam: Present: atraumatic, normocephalic - Eye Eye exam: Present: normal appearance, sclera anicteric - ENT ENT exam: Present: mucous membranes moist - Neck Neck exam general surgery: Present: normal inspection, trachea midline - Respiratory Respiratory exam: Present: decreased breath sounds, CTAB. Absent: rales, rhonchi - Cardiovascular Cardiovascular exam: Present: RRR, +S1, +S2 - GI/Abdominal GI/Abdominal exam: Present: soft, no peritoneal signs. Absent: distended, firm , guarding, tenderness - Rectal Rectal exam: Present: deferred - Extremities Exam Extremities exam: Present: warm - Neurological Exam Neurological exam: Present: no focal deficits - Psychiatric Psychiatric exam: Present: normal affect, normal mood - Skin Skin exam: Present: dry, intact, normal color, warm Results - Labs CBC & Chem 7: 09/20/16 04:36 09/19/16 05:14 Labs: Last Result Calcium 8.7 mg/dL (8.6-10.8) 09/19/16 05:14 Iron 21 mcg/dL (65-175) L 09/18/16 04:59 % Saturation 9 % (20-55) L 09/18/16 04:59 Transferrin 176 mg/dL (174-364) 09/18/16 04:59 Ferritin 57 ng/ml (22-275) 09/18/16 04:59 Entire Visit Hgb 9.3 g/dL (12.9-16.9) L 09/20/16 04:36 Hct 31.0 % (37.5-50.1) L 09/20/16 04:36 PT 14.8 Seconds (9.4-12.1) H 09/15/16 18:26 Ferritin 57 ng/ml (22-275) 09/18/16 04:59 Total Bilirubin 0.3 mg/dL (0.2-1.2) 09/19/16 05:14 AST 15 Units/L (5-34) 09/19/16 05:14 ALT 9 Units/L (0-55) 09/19/16 05:14 Amylase 36 Units/L (25-125) 09/15/16 18:26 Lipase 15 Units/L (8-78) 09/15/16 18:26 - ABG ABG results: PT/INR, D-dimer PT 14.8 Seconds (9.4-12.1) H 09/15/16 18:26 Consult Discharge Plan - Plan Additional Instructions: I recommend completing oral antibiotic course Follow up with PCP for completion of vancomycin taper Follow up with gastroenterology to discuss results Referrals: Alonzo Kuhn MD [Primary Care Provider] - 09/24/16 3:00 pm Prescriptions: Vancomycin Oral Soln [Vancocin] 250 mg PO QID 9 Days
== END 2016-09-20 17:03 | disposition home health service (06) | DRG 371 ==
LOC: EMEROO 15:40 → 3ANU 15:40 → SUATTDRO 22:53
PROVIDERS: ADMIT Internal Medicine; ATTEND Internal Medicine
PROC: ENDOCBX (2016-09-19 17:00)

== ENCOUNTER 2016-10-13 13:35 | Inpatient (IN) ==
[2016-10-13] MEDS ORDERED: Ipratropium/Albuterol Neb 3 ML IH ONE (14:29)
[2016-10-13 14:42] LABS: Bilirubin,Urine Negative (Negative); Blood,Urine Small (Negative); Clarity,Urine Clear (Clear); Color,Urine Yellow (Yellow); Glucose,Urine (UA) Normal (Normal); Ketones,Urine Negative (Negative); Leukocyte Esterase,Urine Small (Negative); Nitrite,Urine Positive (Negative); Protein,Urine 100 mg/dL (Neg-Trace); Specific Gravity,Urine 1.013 (1.010-1.025); Urobilinogen,Urine Normal (Normal)
--- NOTE | 2016-10-13 14:43 | Emergency Department Note ---
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) heart failure Pneumonia Qualifiers: Pneumonia type: due to unspecified organism Laterality: bilateral Lung location : unspecified part of lung Qualified Code(s): J18.9 - Pneumonia, unspecified organism Sepsis Qualifiers: Sepsis type: sepsis due to unspecified organism Qualified Code(s): A41.9 - Sepsis, unspecified organism Disposition: Admitted As Inpatient Condition: Fair Time of Disposition: 16:32 SOB HPI - General Chief Complaint: ED Shortness of Breath/Dyspnea Stated Complaint: VERENA// AMS Time Seen by Provider: 10/13/16 13:42 Source: patient Limitations: no limitations - History of Present Illness Patient is an 89-year-old male past medical history significant for CHF, atrial fibrillation, COPD, type 2 diabetes, HLD, HTN, GERD, osteoporosis, arthritis, thyroid disease, history of tobacco abuse presents to the hospital for complaint of dyspnea on exertion. He is accompanied by his who is at bedside. Patient states that around midnight he what awoke gasping for air. His placed him on his 3 L of oxygen. Patient admits to previous episodes of such shortness of breath. He states that he was hospitalized in the first week of September for this problem. Patient admits to left lower quadrant abdominal pain, chronic lower leg swelling with redness and warmth. Patient's states that she did not take his temperature today. Patient denies chills, chest pain, increased dyspnea on exertion. - Related Data Home Medications Medication Instructions Recorded Confirmed Albuterol Sulfate [Albuterol 2 puff IH Q4HR PRN 06/02/15 10/13/16 Inhaler] HYDROcodone/Acet 5/325 mg [[place] 1 tab PO QAM 06/02/15 10/13/16 5-325 mg] Insulin ASPART [NovoLOG] 2 - 10 unit SQ TIDWM 06/02/15 10/13/16 Insulin NPH, HUMAN [HumuLIN N] 54 unit SQ BID 06/02/15 10/13/16 Levothyroxine [Synthroid] 50 mcg PO QAM 06/02/15 10/13/16 Metoprolol [Lopressor] 25 mg PO BID 06/02/15 10/13/16 Acetaminophen/Diphenhydramine 1 tab PO HS 01/12/16 10/13/16 [Acetaminophen Pm Caplet] Ipratropium/Albuterol Neb [Duoneb] 3 ml IH QID 03/15/16 10/13/16 Amiodarone [Cordarone] 200 mg PO DAILY 09/16/16 10/13/16 Pantoprazole Sodium [Protonix] 40 mg PO DAILY 09/16/16 10/13/16 Pravastatin Sodium [Pravachol] 40 mg PO QPM 09/16/16 10/13/16 Ferrous Sulfate [Iron] 325 mg PO QPM 10/13/16 10/13/16 Lactobacillus [Culturelle] 1 cap PO BID 10/13/16 10/13/16 Potassium Chloride [Klor-Con 10] 10 meq PO QAM 10/13/16 10/13/16 Vancomycin HCl [Vancomycin HCl] 125 mg PO Q48H 10/13/16 10/13/16 Previous Rx's Medication Instructions Recorded Furosemide [Lasix] 40 mg PO DAILY #30 tablet 08/14/16 Allergies Allergy/AdvReac Type Severity Reaction Status Date / Time No Known Allergies Allergy Verified 09/01/16 01:35 All systems ED: reviewed and negative except as stated. Constitutional: Reports: as per HPI Eyes: Reports: as per HPI ENT ED: Reports: as per HPI Cardiovascular: Reports: as per HPI Respiratory: Reports: as per HPI Gastrointestinal: Reports: as per HPI Genitourinary: Reports: as per HPI Musculoskeletal: Reports: as per HPI Integumentary: Reports: as per HPI Neurological: Reports: as per HPI Psychiatric: Reports: as per HPI Endocrine: Reports: as per HPI Hematological/Lymphatic: Reports: as per HPI Allergic/Immunologic: Reports: as per HPI Past Medical History - Past Medical History Medical history: Reports: arthritis, atrial fibrillation, CHF, COPD, diabetes, GERD, hyperlipidemia, hypertension, osteoporosis, thyroid disease, other Surgical history: Reports: appendectomy, cholecystectomy, knee replacement Psychiatric history: Reports: anxiety, depression - Social History Smoking Status: Former smoker Smokeless Tobacco Status: No Alcohol use: Reports: occasionally Drug use: Reports: none Physical Exam - General Limitations: no limitations General appearance: alert, in distress (Mild respiratory distress. Patient to Upon exam.) - Head Head exam: atraumatic, normocephalic, normal inspection - ENT ENT exam: mucous membranes dry - Neck Neck exam: Present: full ROM, trachea midline - Chest Chest inspection: Present: normal inspection, symmetric chest wall rise. Absent : tenderness - Respiratory Respiratory exam: Present: other (Decreased sounds to all lung plasencia. Rales appreciated to left lower lung. ) - Cardiovascular Cardiovascular exam: Present: regular rate, normal rhythm, systolic murmur ( Blowing holosystolic murmur 4/6), +S2. Absent: diastolic murmur - Abdominal Exam Abdominal exam: Present: soft, tenderness, normal bowel sounds. Absent: distention, guarding, rebound, rigidity Abdominal tenderness: Present: LLQ, moderate - Extremities Exam Extremities exam: Present: pedal edema (3+ pedal edema to bilateral lower extremities. Erythema and warmth anterior tibia bilaterally with associated ruptured bullae with serous drainage.) - Neurological Exam Neurological exam: Present: alert, oriented X3 - Psychiatric Psychiatric exam: Present: normal affect, normal mood - Skin Skin exam: Present: warm, dry, intact Course - Reevaluation(s) Reevaluation #1: Patient's x-ray demonstrates a right pleural effusion which was seen on previous imaging. However, also seen are bilateral perihilar opacifications. Patient has leukocytosis, raising concern for pneumonia. However, there is also concern for empyema given the right chronic pleural effusion. Blood cultures were collected and patient was given 1 dose of cefepime and one dose of Levaquin. So, patient has an elevated BNP of 900. His chest x-ray does demonstrate increased pulmonary congestion. Therefore, I suspect he is having a CHF exacerbation as well. I treated the patient with 1 dose of IV Lasix 40 mg. Also, the patient has a UA consistent with UTI. I have discussed with the hospitalist, who accepts the patient for admission. Time: 17:00 Vital Signs Temperature 100.2 F H 10/13/16 13:56 Pulse Rate 70 10/13/16 13:56 Respiratory Rate 18 10/13/16 13:56 Blood Pressure 105/84 10/13/16 13:56 O2 Sat by Pulse Oximetry 97 10/13/16 13:56 Temperature 0 F L 10/13/16 18:30 Pulse Rate 70 10/13/16 13:56 Respiratory Rate 18 10/13/16 18:30 Blood Pressure 113/70 10/13/16 18:30 O2 Sat by Pulse Oximetry 94 10/13/16 14:49 Oxygen Delivery Oxygen Delivery Nasal Cannula Shortness of Breath/Dyspnea - [facility] Narrative Medical decision making narrative: Patient presents with dyspnea since around midnight. On exam his lung sounds are decreased in all plasencia. He does have some rales appreciated to left lower lung. His history of heart failure and COPD. Have ordered a cyst workup, BNP, EKG, chest x-ray. These tests are pending at this time. - Lab Data Result diagrams: 10/13/16 15:19 10/13/16 15:19 Lab Results 10/13/16 10/13/16 10/13/16 Range/Units 14:00 15:19 15:19 WBC 13.1 H (4.3-11.1) K/mcL RBC 4.15 L (4.19-5.50) M/mcL Hgb 11.2 L (12.9-16.9) g/dL Hct 37.6 (37.5-50.1) % MCV 90.6 (83.0-100.0) fL MCH 27.0 L (28.0-33.3) pg MCHC 29.8 L (31.6-35.5) g/dL RDW 16.5 H (11.5-14.5) % Plt Count 166 (140-400) K/mcL MPV 9.4 (9.4-12.4) fL Immature Gran % 0.6 (0-4) % Seg Neutrophils % 85.4 % Lymphocytes % 4.2 % Monocytes % 9.3 % Eosinophils % 0.1 % Basophils % 0.4 % Neutrophils # 11.2 H (1.6-8.9) K/mcL Lymphocytes # 0.6 (0.6-4.6) K/mcL Monocytes # 1.2 (0.0-1.3) K/mcL Eosinophils # 0.0 (0.0-0.6) K/mcL Basophils # 0.1 (0.0-0.2) K/mcL PT (9.4-12.1) Seconds INR APTT (26.0-36.0) Seconds Sodium (136-145) mEq/L Potassium (3.5-4.5) mEq/L Chloride (98-109) mEq/L Carbon Dioxide (19-29) mEq/L BUN (8-26) mg/dL Creatinine (0.72-1.25) mg/dL Est GFR ( Amer) (> 60) Est GFR (Non-Af Amer) (> 60) BUN/Creatinine Ratio (6-26) Glucose (70-99) mg/dL Calculated Osmolality (280-300) Lactic Acid (0.5-2.2) mmol/L Calcium (8.6-10.8) mg/dL Total Bilirubin (0.2-1.2) mg/dL Direct Bilirubin (0.0-0.5) mg/dL Indirect Bilirubin (0.0-1.2) mg/dL AST (5-34) Units/L ALT (0-55) Units/L Alkaline Phosphatase (38-126) Units/L Troponin I 0.16 H* (0-0.03) ng/mL B-Natriuretic Peptide (0-100) pg/mL Serum Total Protein (6.0-8.3) g/dL Albumin (3.5-5.0) g/dL Globulin (2.4-3.5) g/dL Albumin/Globulin Ratio (1.1-2.2) Urine Color Yellow (Yellow) Urine Clarity Clear (Clear) Urine pH 7.0 (5.0-8.0) pH Units Ur Specific [place] 1.013 (1.010-1.025) Urine Protein 100 H (Neg-Trace) mg/dL Urine Glucose (UA) Normal (Normal) mg/dL Urine Ketones Negative (Negative) mg/dL Urine Blood Small H (Negative) Urine Nitrite Positive A (Negative) Urine Bilirubin Negative (Negative) Urine Urobilinogen Normal (Normal) mg/dL Ur Leukocyte Esterase Small H (Negative) Urine Microscopic RBC 5-15 H (0-3) per hpf Urine Microscopic WBC 15-30 H (0-3) per hpf Ur Squamous Epith Cells Many H (None-Few) per lpf Urine Bacteria Many H (None-Few) per hpf Hyaline Casts None Seen (None-Few) per lpf 10/13/16 10/13/16 10/13/16 Range/Units 15:19 15:19 15:19 WBC (4.3-11.1) K/mcL RBC (4.19-5.50) M/mcL Hgb (12.9-16.9) g/dL Hct (37.5-50.1) % MCV (83.0-100.0) fL MCH (28.0-33.3) pg MCHC (31.6-35.5) g/dL RDW (11.5-14.5) % Plt Count (140-400) K/mcL MPV (9.4-12.4) fL Immature Gran % (0-4) % Seg Neutrophils % % Lymphocytes % % Monocytes % % Eosinophils % % Basophils % % Neutrophils # (1.6-8.9) K/mcL Lymphocytes # (0.6-4.6) K/mcL Monocytes # (0.0-1.3) K/mcL Eosinophils # (0.0-0.6) K/mcL Basophils # (0.0-0.2) K/mcL PT 17.2 H (9.4-12.1) Seconds INR 1.6 APTT 31.7 (26.0-36.0) Seconds Sodium 139 (136-145) mEq/L Potassium 3.7 (3.5-4.5) mEq/L Chloride 100 (98-109) mEq/L Carbon Dioxide 31 H (19-29) mEq/L BUN 23 (8-26) mg/dL Creatinine 1.42 H (0.72-1.25) mg/dL Est GFR ( Amer) 57 L (> 60) Est GFR (Non-Af Amer) 47 L (> 60) BUN/Creatinine Ratio 16 (6-26) Glucose 97 (70-99) mg/dL Calculated Osmolality 292 (280-300) Lactic Acid 1.1 (0.5-2.2) mmol/L Calcium 9.4 (8.6-10.8) mg/dL Total Bilirubin 1.1 (0.2-1.2) mg/dL Direct Bilirubin 0.4 (0.0-0.5) mg/dL Indirect Bilirubin 0.7 (0.0-1.2) mg/dL AST 16 (5-34) Units/L ALT 16 (0-55) Units/L Alkaline Phosphatase 85 (38-126) Units/L Troponin I (0-0.03) ng/mL B-Natriuretic Peptide (0-100) pg/mL Serum Total Protein 7.5 (6.0-8.3) g/dL Albumin 3.4 L (3.5-5.0) g/dL Globulin 4.1 H (2.4-3.5) g/dL Albumin/Globulin Ratio 0.8 L (1.1-2.2) Urine Color (Yellow) Urine Clarity (Clear) Urine pH (5.0-8.0) pH Units Ur Specific [place] (1.010-1.025) Urine Protein (Neg-Trace) mg/dL Urine Glucose (UA) (Normal) mg/dL Urine Ketones (Negative) mg/dL Urine Blood (Negative) Urine Nitrite (Negative) Urine Bilirubin (Negative) Urine Urobilinogen (Normal) mg/dL Ur Leukocyte Esterase (Negative) Urine Microscopic RBC (0-3) per hpf Urine Microscopic WBC (0-3) per hpf Ur Squamous Epith Cells (None-Few) per lpf Urine Bacteria (None-Few) per hpf Hyaline Casts (None-Few) per lpf 10/13/16 Range/Units 15:19 WBC (4.3-11.1) K/mcL RBC (4.19-5.50) M/mcL Hgb (12.9-16.9) g/dL Hct (37.5-50.1) % MCV (83.0-100.0) fL MCH (28.0-33.3) pg MCHC (31.6-35.5) g/dL RDW (11.5-14.5) % Plt Count (140-400) K/mcL MPV (9.4-12.4) fL Immature Gran % (0-4) % Seg Neutrophils % % Lymphocytes % % Monocytes % % Eosinophils % % Basophils % % Neutrophils # (1.6-8.9) K/mcL Lymphocytes # (0.6-4.6) K/mcL Monocytes # (0.0-1.3) K/mcL Eosinophils # (0.0-0.6) K/mcL Basophils # (0.0-0.2) K/mcL PT (9.4-12.1) Seconds INR APTT (26.0-36.0) Seconds Sodium (136-145) mEq/L Potassium (3.5-4.5) mEq/L Chloride (98-109) mEq/L Carbon Dioxide (19-29) mEq/L BUN (8-26) mg/dL Creatinine (0.72-1.25) mg/dL Est GFR ( Amer) (> 60) Est GFR (Non-Af Amer) (> 60) BUN/Creatinine Ratio (6-26) Glucose (70-99) mg/dL Calculated Osmolality (280-300) Lactic Acid (0.5-2.2) mmol/L Calcium (8.6-10.8) mg/dL Total Bilirubin (0.2-1.2) mg/dL Direct Bilirubin (0.0-0.5) mg/dL Indirect Bilirubin (0.0-1.2) mg/dL AST (5-34) Units/L ALT (0-55) Units/L Alkaline Phosphatase (38-126) Units/L Troponin I (0-0.03) ng/mL B-Natriuretic Peptide 930 H (0-100) pg/mL Serum Total Protein (6.0-8.3) g/dL Albumin (3.5-5.0) g/dL Globulin (2.4-3.5) g/dL Albumin/Globulin Ratio (1.1-2.2) Urine Color (Yellow) Urine Clarity (Clear) Urine pH (5.0-8.0) pH Units Ur Specific [place] (1.010-1.025) Urine Protein (Neg-Trace) mg/dL Urine Glucose (UA) (Normal) mg/dL Urine Ketones (Negative) mg/dL Urine Blood (Negative) Urine Nitrite (Negative) Urine Bilirubin (Negative) Urine Urobilinogen (Normal) mg/dL Ur Leukocyte Esterase (Negative) Urine Microscopic RBC (0-3) per hpf Urine Microscopic WBC (0-3) per hpf Ur Squamous Epith Cells (None-Few) per lpf Urine Bacteria (None-Few) per hpf Hyaline Casts (None-Few) per lpf - EKG Data EKG attestation: Yes I reviewed and interpreted this EKG. EKG results narrative: EKG sinus rhythm at a rate of 70 bpm area and first-degree AV block. Q waves present in leads V1, V2, V3, which were seen on previous exam dated 08/13/2016. No acute ST segment changes. Critical Care Time Critical Care Time: Yes Total Critical Care Time: 35 Attestation: Critical care time 35 minutes managing CHF and pleural effusions. Attestation Statement - Attestation Attestation: Patient was seen with resident physician. I reviewed the history, physical, assessment and plan, and agree with the findings. I also personally evaluated this patient and had [id number] time with this patient. 89-year-old male presents to the emergency department with chief complaint of shortness of breath. FROM sleep acutely short of breath. Patient states that it has gotten progressively better since then. He says he is on CPAP at night, but typically not on oxygen during the day. When the episode happened his placed him on oxygen and eventually was brought to the emergency department for evaluation and treatment. Patient currently states that his complaints are of some mild abdominal discomfort and of course his shortness of breath. He also swelling in the lower extremities which apparently is not new for him. Examination vital signs patient has a low-grade fever, other vital signs are okay. Heart exam is normal. Lung exam has rales especially in the right base. Abdominal exam mild tenderness on the left side with no guarding or rigidity positive bowel sounds. Extremities 3+ edema in the lower extremities bilaterally with mild erythema which does not appear cellulitic. Neurologically patient is alert and oriented no focal deficits. We will do workup for COPD and pneumonia. Will also give breathing treatments and see if we can improve his respiratory status. We will likely admit to the hospital for further evaluation and treatment which workup is complete. Workup revealed significant pulmonary effusion. Patient had leukocytosis, there is concern for possible empyema. Started on antibiotics and given a dose of Lasix. Hospitalist was notified and admission was arranged. Hemodynamically he did well on the ED. Agree with the resident physician assessment and plan.
[2016-10-13 14:44] LABS: Bacteria,Urine Many per hpf (None-Few); Hyaline Casts,Urine None Seen per lpf (None-Few); Squamous Epithelial Cell,Urine Many per lpf (None-Few); WBC,Urine 15-30 per hpf (0-3)
[2016-10-13 15:28] LABS: Basophils # 0.1 K/mcL (0.0-0.2); Basophils % 0.4 %; Eosinophils % 0.1 %; Hematocrit 37.6 % (37.5-50.1); Hemoglobin 11.2 g/dL (12.9-16.9); Immature Granulocytes % 0.6 % (0-4); Lymphocytes # 0.6 K/mcL (0.6-4.6); Lymphocytes % 4.2 %; Mean Corpuscular HGB Conc 29.8 g/dL (31.6-35.5); Mean Corpuscular Volume 90.6 fL (83.0-100.0); Mean Platelet Volume 9.4 fL (9.4-12.4); Monocytes # 1.2 K/mcL (0.0-1.3); Monocytes % 9.3 %; Neutrophils # 11.2 K/mcL (1.6-8.9); Platelet Count 166 K/mcL (140-400); Red Blood Count 4.15 M/mcL (4.19-5.50); Red Cell Distribution Width 16.5 % (11.5-14.5); Segmented Neutrophils % 85.4 %
[2016-10-13 15:33] LABS: INR 1.6; Prothrombin Time 17.2 Seconds (9.4-12.1)
[2016-10-13 15:35] LABS: Activated Partial Thrombo Time 31.7 Seconds (26.0-36.0)
[2016-10-13 15:51] LABS: Albumin 3.4 g/dL (3.5-5.0); Albumin/Globulin Ratio 0.8 (1.1-2.2); Bilirubin,Direct 0.4 mg/dL (0.0-0.5); Bilirubin,Indirect 0.7 mg/dL (0.0-1.2); Bilirubin,Total 1.1 mg/dL (0.2-1.2); Calcium 9.4 mg/dL (8.6-10.8); Globulin 4.1 g/dL (2.4-3.5); Potassium 3.7 mEq/L (3.5-4.5); Total Protein 7.5 g/dL (6.0-8.3)
[2016-10-13] MEDS ORDERED: Furosemide 40 MG/4 ML VIAL IVP ONE (16:19)
[2016-10-13] MEDS ORDERED: Cefepime HCl 2,000 MG in D5% in Water (Mini-Bag+) 100 ML IVPB ONE (16:30)
[2016-10-13] MEDS ORDERED: Levofloxacin 750 MG/150 ML 750 MG/150 ML BAG IVPB ONE (16:31)
[2016-10-13] MEDS ORDERED: Ondansetron 4 MG/2 ML VIAL IVP PRN (17:06)
[2016-10-13] MEDS ORDERED: Naloxone 0.4 MG/ML INJ IVP PRN (17:06)
[2016-10-13] MEDS ORDERED: *HR* Morphine 2 MG/ML SYRINGE IVP PRN (17:06)
--- NOTE | 2016-10-13 17:15 | Internal Med History&Physical ---
Date of Encounter: 10/13/16 Time of Encounter: 17:13 Assessment and Plan (1) Acute on chronic respiratory failure with hypoxia Current visit: No Status: Acute Acute on chronic hypoxic respiratory failure secondary to sepsis due to healthcare associated pneumonia present upon admission/UTI in combination with diastolic CHF and moderate to large right pleural effusion/pulmonary edema Strict I's and O's, daily weight, Lasix IV Continue cefepime and Levaquin, consider vancomycin if condition deteriorates Blood cultures, oxygen therapy, DuoNeb's Omeprazole for GI prophylaxis and sequential compression devices for DVT prophylaxis. The patient will be admitted as inpatient, expected to stay more than 2 midnights. DNR CC arrest DNI. High risk for respiratory failure. Time spent on this admission 40 minutes (2) Sepsis Current visit: Yes Status: Acute Qualifiers: Sepsis type: sepsis due to unspecified organism Qualified Code(s): A41.9 - Sepsis, unspecified organism (3) C. difficile colitis Current visit: No Status: Acute Continue oral vancomycin due to recent history of C. difficile colitis (4) Elevated troponin Current visit: No Status: Acute History of chronically elevated troponins (5) HCAP (healthcare-associated pneumonia) Current visit: No Status: Acute (6) A-fib Current visit: No Status: Chronic Not on anticoagulation Continue amiodarone and metoprolol Qualifiers: Atrial fibrillation type: chronic Qualified Code(s): I48.2 - Chronic atrial fibrillation (7) Aortic stenosis Current visit: No Status: Chronic Stable Qualifiers: Cardiac valve disease etiology: nonrheumatic Qualified Code(s): I35.0 - Nonrheumatic aortic (valve) stenosis (8) COPD (chronic obstructive pulmonary disease) Current visit: No Status: Chronic No exacerbation, consider the use of steroids Qualifiers: COPD type: emphysema Emphysema type: panlobular Qualified Code(s): J43.1 - Panlobular emphysema (9) Chronic kidney disease, stage 3 Current visit: No Status: Chronic Stable (10) Hypertension Current visit: No Status: Chronic Qualifiers: Hypertension type: essential hypertension Qualified Code(s): I10 - Essential (primary) hypertension Internal Medicine - H&P: HPI Chief complaint: Shortness of breath Admitted From: Emergency Dept History of present illness: Mr. Pan is a 89 year old male with a past medical history of diastolic CHF, atrial fibrillation not on Coumadin anymore due to anemia, recently discharged from the hospital at the beginning of this month where he was treated for acute C. difficile colitis. Comes to the hospital complaining of severe shortness of breath, apparently she saturation of oxygen dropped down to 83%, he uses oxygen at home 3 L for COPD. Developed a fever 100.2, his white blood cell count was 13.1 troponin 0.16 but he has history of chronically elevated troponins BNP is elevated at 930 which is compatible with CHF noticed on the chest x-ray were week and see a persistent moderate to large right pleural effusion, the report is reviewed and a possible infiltrate on the right base compatible with pneumonia there is also vascular congestion and perhiliar edema. The UA shows 30 white blood cells and many bacteria, he denies any dysuria, creatinine is 1.42 at baseline. Also has been complaining of left lower quadrant pain and leg swelling. Past Med Surg Social Fam HX - Past Medical History Medical history: arthritis, atrial fibrillation (Not on anticoagulation anymore) , CHF (Diastolic), COPD (Oxygen dependent on 3 L continuously), diabetes ( Insulin-dependent), GERD, hyperlipidemia, hypertension, osteoporosis, thyroid disease (Hypothyroidism), other (GERD, remote history of tobacco use, osteoporosis, chronic kidney disease stage III, CAD being, C. difficile colitis , depression, compression fractures, carotid stenosis, hypothyroidism) Psychiatric history: anxiety, depression - Past Surgical History Surgical History: appendectomy, cholecystectomy, knee replacement, other (Small bowel obstruction in the past status post surgical repair, TURP, carpal tunnel release) - Social History Smoking Status: Former smoker Smokeless Tobacco Status: No Alcohol use: occasionally Drug use: none - Family History Father Living Status: Hx Family Cardiac Disorders: Yes (heart murmur) Hx Family Neurologic Disorders: Yes (Dementia) Mother Adopted: No Family Member Ethnicity: Non- Living Status: Hx Family Cardiac Disorders: Yes (stroke) Hx Family Neuromuscular Disorders: Yes (Stroke at age 70s.) Hx Family Neurologic Disorders: Yes (seizures) - Additional Family History Additional family history: Mother with CVA and seizures, father with dementia Internal Medicine - H&P: Meds Albuterol Sulfate [Albuterol Inhaler] 2 puff IH Q4HR PRN 06/02/15 [History] Calcitonin Nasal [place] [Miacalcin Nasal [place]] 1 spray NS DAILY 06/02/15 [ History] HYDROcodone/Acet 5/325 mg [[place] 5-325 mg] 1 tab PO QAM 06/02/15 [History] Insulin ASPART [NovoLOG] 2 - 14 unit SQ TIDWM 06/02/15 [History] Insulin NPH, HUMAN [HumuLIN N] 54 unit SQ BID 06/02/15 [History] Levothyroxine [Synthroid] 50 mcg PO QAM 06/02/15 [History] Metoprolol [Lopressor] 50 mg PO BID 06/02/15 [History] Acetaminophen/Diphenhydramine [Acetaminophen Pm Caplet] 1 tab PO HS 01/12/16 [ History] Ipratropium/Albuterol Neb [Duoneb] 3 ml IH QID 03/15/16 [History] Isosorbide MONOnitrate (24 HR) [Imdur] 30 mg PO DAILY 08/09/16 [History] Furosemide [Lasix] 40 mg PO DAILY #30 tablet 08/14/16 [Rx] Magic Mouthwash [Magic Mouthwash BLM] 10 ml PO QID PRN #240 ml 09/01/16 [Rx] Amiodarone [Cordarone] 200 mg PO DAILY 09/16/16 [History] Pantoprazole Sodium [Protonix] 40 mg PO DAILY 09/16/16 [History] Pravastatin Sodium [Pravachol] 40 mg PO DAILY 09/16/16 [History] Lactobacillus [Culturelle] 1 each PO BID #60 cap.sprink 09/20/16 [Rx] Sennosides/Docusate Sodium [Senna Plus] 1 each PO DAILY #30 tablet 09/20/16 [Rx] Simethicone [Anti-Gas] 180 mg PO BID 5 Days 09/20/16 [Rx] Vancomycin Oral Soln [Vancocin] 250 mg PO QID 9 Days 09/20/16 [Rx] Peg 3350/Na Sulf,Bicarb,Cl/KCl [Golytely Solution] 4,000 ml PO Q4-6H PRN #1 soln.recon 09/23/16 [Rx] Allergies No Known Allergies Allergy (Verified 09/01/16 01:35) All Systems PM: A 10-system review of systems was performed and is negative for pertinent findings except as documented above in the HPI. Review of systems: Complains of stools on and off she is still on oral vancomycin. Feels short of breath, very weak. Other systems out of the 10 review were negative - Constitutional Vitals: Temp Pulse Resp BP Pulse Ox 100.2 F H 70 18 105/84 94 10/13/16 13:56 10/13/16 13:56 10/13/16 14:49 10/13/16 13:56 10/13/16 14:49 General appearance: Present: A&O X 3, obese - Head Head exam: Present: atraumatic, normocephalic - Eye Eye exam: Present: PERRL, conjuntiva pink, sclera anicteric Pupils: Present: PERRL - Neck Neck exam general surgery: Present: supple, trachea midline. Absent: lymphadenopathy - Respiratory Respiratory exam: Present: decreased breath sounds (Blunted breath sounds on the right base, diffuse crackles), CTAB. Absent: accessory muscle use, rales, rhonchi, wheezes - Cardiovascular Cardiovascular exam: Present: RRR, +S1, +S2, systolic murmur (Systolic murmur radiated to the aortic area 1 out of 6). Absent: diastolic murmur, gallop, rubs - GI/Abdominal GI/Abdominal exam: Present: distended (Obesity/possible ascites), normal bowel sounds, soft, no peritoneal signs. Absent: tenderness - Extremities Exam Extremities exam: Present: pedal edema (+1 pitting edema in both lower extremities), warm, radial pulses palpable and symetrical. Absent: calf tenderness, cyanotic - Neurological Exam Neurological exam: Present: CN II-XII intact, oriented X3, no focal deficits. Absent: pronater drift, facial droop, speech deficit - Skin Skin exam: Present: dry, intact Internal Med - H&P Results - Labs CBC & Chem 7: 10/13/16 15:19 10/13/16 15:19
[2016-10-13] MEDS ORDERED: D5% in Water 1,000 ML IVC PRN (17:23)
[2016-10-13] MEDS ORDERED: *HR* Dextrose 50 % in Water (Syg) 50 ML SYRINGE IVP PRN (17:23)
[2016-10-13] MEDS ORDERED: Dextrose Gel 15 GM PO PRN ×2 (17:23)
[2016-10-13] MEDS ORDERED: Ipratropium/Albuterol Neb 3 ML IH SCH (17:30)
[2016-10-13] MEDS: Vancomycin Oral Soln 250 MG/2.5 ML UDC PO SCH ×2 (20:09→21:12)
[2016-10-13] MEDS ORDERED: Ipratropium/Albuterol Neb 3 ML IH PRN (20:34)
[2016-10-13] MEDS: Aspirin Enteric Coated 81 MG Tablet PO SCH (21:12)
[2016-10-13] MEDS: Furosemide 20 MG/2 ML VIAL IVP SCH (21:12)
[2016-10-13] MEDS: Insulin LISPRO 300 UNITS/3 ML VIAL SQ SCH (21:13)
[2016-10-13 21:50] LABS: ABG Base Excess 7.1 mEq/L (-2.0 to 3.0); ABG Oxygen Saturation 92 % (95-98); ABG PCO2 46 mmHg (35-45); ABG PH 7.45 pH Units (7.32-7.45); ABG PO2 60 mmHg (85-104); ABG TCO2 33.4 mEq/L (20-26); Blood Gas FiO2 28 %; Blood Gas Liter Flow 2 L/MIN
[2016-10-14 03:44] LABS: Basophils % 0.2 %; Eosinophils % 0.2 %; Hematocrit 31.4 % (37.5-50.1); Immature Granulocytes % 0.5 % (0-4); Lymphocytes # 0.7 K/mcL (0.6-4.6); Lymphocytes % 5.6 %; Mean Corpuscular HGB Conc 30.6 g/dL (31.6-35.5); Mean Corpuscular Hemoglobin 27.4 pg (28.0-33.3); Mean Corpuscular Volume 89.5 fL (83.0-100.0); Mean Platelet Volume 10.2 fL (9.4-12.4); Monocytes # 1.6 K/mcL (0.0-1.3); Neutrophils # 10.7 K/mcL (1.6-8.9); Platelet Count 148 K/mcL (140-400); Red Blood Count 3.51 M/mcL (4.19-5.50); Red Cell Distribution Width 16.7 % (11.5-14.5); Segmented Neutrophils % 81.5 %
[2016-10-14 03:53] LABS: Hemoglobin 9.6 g/dL (12.9-16.9)
[2016-10-14 04:01] LABS: Potassium 3.7 mEq/L (3.5-4.5)
[2016-10-14] MEDS: Cefepime HCl 1,000 MG in D5% in Water (Mini-Bag+) 100 ML IVPB SCH ×2 (04:05→16:29)
[2016-10-14] MEDS ORDERED: Vancomycin 1,000 MG in D5% in Water 250 ML IVPB SCH (07:38)
[2016-10-14] MEDS: Insulin LISPRO 300 UNITS/3 ML VIAL SQ SCH ×4 (08:06→21:42)
[2016-10-14] MEDS ORDERED: Vancomycin 2,000 MG in D5% in Water 500 ML IVPB ONE (09:00)
[2016-10-14] MEDS: Isosorbide MONOnitrate (24 HR) 30 MG TAB.ER.24H PO SCH (09:50)
[2016-10-14] MEDS: Furosemide 20 MG/2 ML VIAL IVP SCH ×2 (09:50→16:35)
[2016-10-14] MEDS: *HR* Amiodarone 200 MG TABLET PO SCH (09:50)
[2016-10-14] MEDS: Aspirin Enteric Coated 81 MG Tablet PO SCH (09:50)
--- NOTE | 2016-10-14 09:50 | Internal Med Progress Note ---
Date of Encounter: 10/14/16 Time of Encounter: 09:15 - Assessment and plan (1) Acute on chronic respiratory failure with hypoxia Current Visit: No Status: Acute Assessment and plan: Likely multifactorial CHF decompensation with HCAP 2D echo from 08/03 showed LVEF 65% with normal LV size and systolic function and increased LV wall thickness Will repeat 2D echo continue IV lasix at this time closely monitor I/Os, daily weights fluid restricted diet O2 supplementation as needed continue IV abx (changed to Vancomycin and d/c Levaquin). Continue Vancomycin and Cefepime Pharmacy to renally dose abx monitor Vanco trough follow up blood cultures (2) HCAP (healthcare-associated pneumonia) Current Visit: No Status: Acute Assessment and plan: as listed above (3) UTI (urinary tract infection) Current Visit: Yes Status: Acute Assessment and plan: will continue IV abx f/u urine cultures Qualifiers: Urinary tract infection type: site unspecified Hematuria presence: without hematuria Qualified Code(s): N39.0 - Urinary tract infection, site not specified (4) CHF (congestive heart failure) Current Visit: Yes Status: Chronic Assessment and plan: plan as listed above Qualifiers: Congestive heart failure type: diastolic Congestive heart failure chronicity: acute on chronic Qualified Code(s): 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 (5) Diabetes Current Visit: No Status: Chronic Assessment and plan: Pt reported of taking Levemir 54units BID given current BG readings, will change to 54units qHS closely monitor FS and BG continue ss insulin algorithm will adjust insulin therapy as needed ADA diet Qualifiers: Diabetes mellitus type: other specified (including HORTENCIA) Diabetes mellitus complication status: with unspecified complications Diabetes mellitus power plant operations manager insulin use: with residential use Qualified Code(s): E13.8 - Other specified diabetes mellitus with unspecified complications; Z79.4 - counselor education professor ( 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 of insulin (6) COPD (chronic obstructive pulmonary disease) Current Visit: No Status: Chronic Assessment and plan: Not in acute exacerbation continue O2 supplementation continue home meds Qualifiers: COPD type: emphysema Emphysema type: panlobular Qualified Code(s): J43.1 - Panlobular emphysema (7) Aortic stenosis Current Visit: No Status: Chronic Qualifiers: Cardiac valve disease etiology: nonrheumatic Qualified Code(s): I35.0 - Nonrheumatic aortic (valve) stenosis (8) A-fib Current Visit: No Status: Chronic Assessment and plan: rate controlled with Amiodarone and BB Not on anticaogulation ASA Qualifiers: Atrial fibrillation type: chronic Qualified Code(s): I48.2 - Chronic atrial fibrillation (9) DVT prophylaxis Current Visit: No Status: Acute Assessment and plan: Heparin sQ (10) Chronic kidney disease Current Visit: Yes Status: Chronic Assessment and plan: Renal function appears to be at baseline will continue to monitor Qualifiers: Chronic kidney disease stage: stage 3 (moderate) Qualified Code(s): N18.3 - Chronic kidney disease, stage 3 (moderate) - Subjective Interval history: Patient seen and examined at bedside. Resting in bed and reports of feeling better compared to the previous day. States he has been excessively using his cpap, was only supposed to use it at bedtime but has been using it 24/. states he does not have any diarrhea. Reports of having portable oxygen tank but does not use it at home - Constitutional Vitals: Temp Pulse Resp BP Pulse Ox 97.8 F 59 16 115/53 92 10/14/16 07:34 10/14/16 07:34 10/14/16 07:34 10/14/16 07:34 10/14/16 07:34 General appearance: Present: A&O X 3, morbidly obese, no acute distress - Head Head exam: Present: atraumatic, normocephalic - Eye Eye exam: Present: normal appearance, conjuntiva pink, sclera anicteric - Respiratory Respiratory exam: Present: decreased breath sounds - Cardiovascular Cardiovascular exam: Present: RRR, +S1, +S2, systolic murmur. Absent: diastolic murmur, gallop, rubs - GI/Abdominal GI/Abdominal exam: Present: normal bowel sounds, soft, no peritoneal signs. Absent: distended, tenderness - Extremities Exam Extremities exam: Present: pedal edema (bilateral 2+pitting edema extending to midshin, erythema in b/l LE ). Absent: calf tenderness - Neurological Exam Neurological exam: Present: alert, oriented X3 - Psychiatric Psychiatric exam: Present: normal affect, normal mood Internal Medicine: Result - Labs CBC & Chem 7: 10/14/16 02:48 10/14/16 02:48 Labs: Short CBC 10/14/16 Range/Units 02:48 WBC 13.2 H (4.3-11.1) K/mcL Hgb 9.6 L D (12.9-16.9) g/dL Hct 31.4 L (37.5-50.1) % Plt Count 148 (140-400) K/mcL Neutrophils # 10.7 H (1.6-8.9) K/mcL BMP 10/14/16 02:48 Sodium 139 Potassium 3.7 Chloride 100 Carbon Dioxide 32 H BUN 24 Creatinine 1.44 H Glucose 103 H Calcium 9.0 Cardiac Enzymes 10/13/16 Range/Units 19:59 Troponin I 0.16 H* (0-0.03) ng/mL - ABG Interpretation ABG results: ABG ABG pH 7.45 pH Units (7.32-7.45) 10/13/16 21:37 ABG pCO2 46 mmHg (35-45) H 10/13/16 21:37 ABG pO2 60 mmHg (85-104) L 10/13/16 21:37 ABG O2 Saturation 92 % (95-98) L 10/13/16 21:37 PT/INR, D-dimer PT 17.2 Seconds (9.4-12.1) H 10/13/16 15:19 Consult Discharge Plan - Plan
[2016-10-14] MEDS: Vancomycin Oral Soln 250 MG/2.5 ML UDC PO SCH (09:51)
[2016-10-14] MEDS: Ipratropium/Albuterol Neb 3 ML IH SCH ×3 (10:23→22:42)
[2016-10-14] MEDS: *HR* Heparin 5,000 UNIT/ML VIAL SQ SCH (17:36)
[2016-10-14] MEDS: Lactobacillus 1 EACH CAP.SPRINK PO SCH (21:46)
[2016-10-14] MEDS: Insulin DETEMIR 100 UNIT/ML X5UNITS SQ SCH (21:47)
[2016-10-15] MEDS: Cefepime HCl 1,000 MG in D5% in Water (Mini-Bag+) 100 ML IVPB SCH ×2 (03:59→17:08)
[2016-10-15] MEDS: Ipratropium/Albuterol Neb 3 ML IH SCH ×4 (05:13→22:08)
[2016-10-15 06:16] LABS: Basophils % 0.3 %; Eosinophils # 0.1 K/mcL (0.0-0.6); Eosinophils % 1.3 %; Hematocrit 32.7 % (37.5-50.1); Immature Granulocytes % 0.4 % (0-4); Lymphocytes # 0.9 K/mcL (0.6-4.6); Lymphocytes % 9.4 %; Mean Corpuscular HGB Conc 30.6 g/dL (31.6-35.5); Mean Corpuscular Hemoglobin 27.2 pg (28.0-33.3); Mean Corpuscular Volume 89.1 fL (83.0-100.0); Mean Platelet Volume 10.3 fL (9.4-12.4); Monocytes % 11.4 %; Neutrophils # 6.9 K/mcL (1.6-8.9); Platelet Count 157 K/mcL (140-400); Red Blood Count 3.67 M/mcL (4.19-5.50); Red Cell Distribution Width 16.4 % (11.5-14.5); Segmented Neutrophils % 77.2 %
[2016-10-15] MEDS: *HR* Heparin 5,000 UNIT/ML VIAL SQ SCH ×2 (06:24→17:11)
[2016-10-15] MEDS: Insulin LISPRO 300 UNITS/3 ML VIAL SQ SCH ×3 (07:39→17:08)
[2016-10-15] MEDS: Isosorbide MONOnitrate (24 HR) 30 MG TAB.ER.24H PO SCH (07:40)
[2016-10-15] MEDS: Lactobacillus 1 EACH CAP.SPRINK PO SCH ×2 (07:40→21:20)
[2016-10-15] MEDS: Furosemide 20 MG/2 ML VIAL IVP SCH ×2 (07:40→17:09)
[2016-10-15] MEDS: Aspirin Enteric Coated 81 MG Tablet PO SCH (07:40)
[2016-10-15] MEDS: *HR* Amiodarone 200 MG TABLET PO SCH (07:40)
[2016-10-15 08:27] LABS: Calcium 9.4 mg/dL (8.6-10.8); Magnesium 1.6 mg/dL (1.6-2.6); Phosphorous 2.9 mg/dL (2.3-4.7); Potassium 3.6 mEq/L (3.5-4.5)
[2016-10-15] MEDS ORDERED: NON-FORMULARY MEDICATION 1 EACH EACH (Pantoprazole Sodium [Protonix] 40 MG) PO SCH (09:00)
[2016-10-15] MEDS: Vancomycin 1,750 MG in D5% in Water 500 ML IVPB SCH (11:54)
[2016-10-15] MEDS ORDERED: NON-FORMULARY MEDICATION 1 EACH EACH (Acetaminophen/Diphenhydramine [Acetaminophen Pm Capl PO PRN (12:17)
--- NOTE | 2016-10-15 12:23 | Internal Med Progress Note ---
Date of Encounter: 10/15/16 Time of Encounter: 11:55 - Assessment and plan (1) Acute on chronic respiratory failure with hypoxia Current Visit: No Status: Acute Assessment and plan: Likely multifactorial CHF decompensation with HCAP 2D echo (10/15/16): LVEF 60%, normal LV size and systolic function. Moderate to severe concentric hypertrophy of the left ventricle. Evidence of moderate diastolic dysfunction of the LV continue IV lasix at this time closely monitor I/Os, daily weights fluid restricted diet O2 supplementation as needed Continue Vancomycin and Cefepime Pharmacy to renally dose abx monitor Vanco trough follow up blood cultures (2) HCAP (healthcare-associated pneumonia) Current Visit: No Status: Acute Assessment and plan: as listed above (3) UTI (urinary tract infection) Current Visit: Yes Status: Acute Assessment and plan: will continue IV abx f/u urine cultures (prelim: gram negative rods) will follow up official culture reports Qualifiers: Urinary tract infection type: site unspecified Hematuria presence: without hematuria Qualified Code(s): N39.0 - Urinary tract infection, site not specified (4) CHF (congestive heart failure) Current Visit: Yes Status: Chronic Assessment and plan: plan as listed above cardiology to follow up with the patient as outpatient Qualifiers: Congestive heart failure type: diastolic Congestive heart failure chronicity: acute on chronic Qualified Code(s): 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 (5) Diabetes Current Visit: No Status: Chronic Assessment and plan: continue levemir closely monitor FS and BG continue ss insulin algorithm will adjust insulin therapy as needed ADA diet Qualifiers: Diabetes mellitus type: other specified (including HORTENCIA) Diabetes mellitus complication status: with unspecified complications Diabetes mellitus technician terminal and repeater insulin use: with technician terminal and repeater use Qualified Code(s): E13.8 - Other specified diabetes mellitus with unspecified complications; Z79.4 - long-term ( 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 of insulin (6) COPD (chronic obstructive pulmonary disease) Current Visit: No Status: Chronic Assessment and plan: Not in acute exacerbation continue O2 supplementation continue home meds Qualifiers: COPD type: emphysema Emphysema type: panlobular Qualified Code(s): J43.1 - Panlobular emphysema (7) Aortic stenosis Current Visit: No Status: Chronic Qualifiers: Cardiac valve disease etiology: nonrheumatic Qualified Code(s): I35.0 - Nonrheumatic aortic (valve) stenosis (8) A-fib Current Visit: No Status: Chronic Assessment and plan: rate controlled with Amiodarone and BB Not on anticaogulation ASA Qualifiers: Atrial fibrillation type: chronic Qualified Code(s): I48.2 - Chronic atrial fibrillation (9) DVT prophylaxis Current Visit: No Status: Acute Assessment and plan: Heparin sQ (10) Chronic kidney disease Current Visit: Yes Status: Chronic Assessment and plan: Renal function worsened from previous day will try an albumin challenge along with Lasix and closely monitor renal function will continue to monitor Qualifiers: Chronic kidney disease stage: stage 3 (moderate) Qualified Code(s): N18.3 - Chronic kidney disease, stage 3 (moderate) - Subjective Interval history: Patient seen and examined at bedside. Resting in chair and eating lunch and reports of feeling significantly better compared to previous day. Requests continuation of his home sleep aid and miralax. No overnight issues reported. Will restart Tylenol PM and Miralax f/u PT eval - Constitutional Vitals: Temp Pulse Resp BP Pulse Ox 98 F 57 18 112/46 92 10/15/16 11:14 10/15/16 11:14 10/15/16 11:14 10/15/16 11:14 10/15/16 11:14 General appearance: Present: A&O X 3, morbidly obese, no acute distress - Head Head exam: Present: atraumatic, normocephalic - Eye Eye exam: Present: normal appearance, conjuntiva pink, sclera anicteric - Respiratory Respiratory exam: Absent: respiratory distress, wheezes - Cardiovascular Cardiovascular exam: Present: RRR, +S1, +S2. Absent: diastolic murmur, gallop, rubs, systolic murmur - GI/Abdominal GI/Abdominal exam: Present: normal bowel sounds, soft, no peritoneal signs. Absent: distended, tenderness - Extremities Exam Extremities exam: Present: warm, radial pulses palpable and symetrical (2+ pitting edema extending to mid gill bilaterally ). Absent: calf tenderness - Neurological Exam Neurological exam: Present: alert, oriented X3 - Psychiatric Psychiatric exam: Present: normal affect, normal mood Internal Medicine: Result - Labs CBC & Chem 7: 10/15/16 05:22 10/15/16 08:05 Labs: Short CBC 10/15/16 Range/Units 05:22 WBC 9.0 (4.3-11.1) K/mcL Hgb 10.0 L (12.9-16.9) g/dL Hct 32.7 L (37.5-50.1) % Plt Count 157 (140-400) K/mcL Neutrophils # 6.9 (1.6-8.9) K/mcL BMP 10/15/16 08:05 Sodium 137 Potassium 3.6 Chloride 97 L Carbon Dioxide 30 H BUN 30 H Creatinine 1.53 H Glucose 76 Calcium 9.4 - ABG Interpretation ABG results: ABG ABG pH 7.45 pH Units (7.32-7.45) 10/13/16 21:37 ABG pCO2 46 mmHg (35-45) H 10/13/16 21:37 ABG pO2 60 mmHg (85-104) L 10/13/16 21:37 ABG O2 Saturation 92 % (95-98) L 10/13/16 21:37 PT/INR, D-dimer PT 17.2 Seconds (9.4-12.1) H 10/13/16 15:19 Consult Discharge Plan - Plan Referrals: Alonzo Kuhn MD [Primary Care Provider] - (web request sent on 10/15/16)
[2016-10-15] MEDS: Albumin 25% 25gram/100mL 25 GM/100 ML IV.SOLN IVPB SCH (15:48)
[2016-10-15] MEDS: Insulin DETEMIR 100 UNIT/ML X5UNITS SQ SCH (21:27)
[2016-10-16] MEDS: Ipratropium/Albuterol Neb 3 ML IH SCH ×4 (04:35→22:49)
[2016-10-16 05:17] LABS: Basophils # 0.1 K/mcL (0.0-0.2); Basophils % 0.7 %; Eosinophils # 0.1 K/mcL (0.0-0.6); Eosinophils % 2.1 %; Hematocrit 32.4 % (37.5-50.1); Hemoglobin 9.7 g/dL (12.9-16.9); Immature Granulocytes % 0.4 % (0-4); Lymphocytes # 0.8 K/mcL (0.6-4.6); Lymphocytes % 11.4 %; Mean Corpuscular HGB Conc 29.9 g/dL (31.6-35.5); Mean Corpuscular Hemoglobin 26.4 pg (28.0-33.3); Mean Corpuscular Volume 88.3 fL (83.0-100.0); Mean Platelet Volume 9.8 fL (9.4-12.4); Monocytes # 0.9 K/mcL (0.0-1.3); Monocytes % 13.5 %; Neutrophils # 4.8 K/mcL (1.6-8.9); Platelet Count 180 K/mcL (140-400); Red Blood Count 3.67 M/mcL (4.19-5.50); Red Cell Distribution Width 16.1 % (11.5-14.5); Segmented Neutrophils % 71.9 %
[2016-10-16 05:29] LABS: BUN/Creatinine Ratio 23 (6-26); Blood Urea Nitrogen 31 mg/dL (8-26); Calcium 9.6 mg/dL (8.6-10.8); Carbon Dioxide 31 mEq/L (19-29); Chloride 99 mEq/L (98-109); Magnesium 1.9 mg/dL (1.6-2.6); Osmolality,Calculated 289 (280-300); Phosphorous 3.2 mg/dL (2.3-4.7); Potassium 3.6 mEq/L (3.5-4.5); Sodium 138 mEq/L (136-145); eGFR For African Americans > 60 (> 60); eGFR For Non-African Americans 50 (> 60)
[2016-10-16 05:32] LABS: Glucose 39 mg/dL (70-99)
[2016-10-16] MEDS: Cefepime HCl 1,000 MG in D5% in Water (Mini-Bag+) 100 ML IVPB SCH ×2 (05:49→16:52)
[2016-10-16] MEDS: Insulin LISPRO 300 UNITS/3 ML VIAL SQ SCH ×5 (05:50→21:01)
[2016-10-16] MEDS: *HR* Heparin 5,000 UNIT/ML VIAL SQ SCH ×2 (06:08→17:44)
[2016-10-16] MEDS: Albumin 25% 25gram/100mL 25 GM/100 ML IV.SOLN IVPB SCH ×2 (08:00→16:51)
[2016-10-16] MEDS: Aspirin Enteric Coated 81 MG Tablet PO SCH (08:11)
[2016-10-16] MEDS: Lactobacillus 1 EACH CAP.SPRINK PO SCH ×2 (08:12→20:54)
[2016-10-16] MEDS: Isosorbide MONOnitrate (24 HR) 30 MG TAB.ER.24H PO SCH (08:12)
[2016-10-16] MEDS: *HR* Amiodarone 200 MG TABLET PO SCH (08:12)
[2016-10-16] MEDS: Furosemide 20 MG/2 ML VIAL IVP SCH ×2 (09:55→19:33)
[2016-10-16] MEDS: Vancomycin 1,750 MG in D5% in Water 500 ML IVPB SCH (10:00)
[2016-10-16] MEDS ORDERED: *HR* HYDROcodone/Acet 5/325 mg TABLET PO PRN (11:47)
--- NOTE | 2016-10-16 12:45 | Internal Med Progress Note ---
Date of Encounter: 10/16/16 Time of Encounter: 12:43 - Assessment and plan (1) Acute on chronic respiratory failure with hypoxia Current Visit: No Status: Acute Assessment and plan: Likely multifactorial CHF decompensation with HCAP 2D echo (10/15/16): LVEF 60%, normal LV size and systolic function. Moderate to severe concentric hypertrophy of the left ventricle. Evidence of moderate diastolic dysfunction of the LV continue IV lasix at this time closely monitor I/Os, daily weights fluid restricted diet O2 supplementation as needed Continue Vancomycin and Cefepime Pharmacy to renally dose abx monitor Vanco trough follow up blood cultures will switch to PO abx in am (2) HCAP (healthcare-associated pneumonia) Current Visit: No Status: Acute Assessment and plan: as listed above (3) UTI (urinary tract infection) Current Visit: Yes Status: Acute Assessment and plan: will continue IV abx urine cultures: Klebsiella pneumoniae and Proteus Vulgaris Qualifiers: Urinary tract infection type: site unspecified Hematuria presence: without hematuria Qualified Code(s): N39.0 - Urinary tract infection, site not specified (4) CHF (congestive heart failure) Current Visit: Yes Status: Chronic Assessment and plan: plan as listed above cardiology to follow up with the patient as outpatient Qualifiers: Congestive heart failure type: diastolic Congestive heart failure chronicity: acute on chronic Qualified Code(s): 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 (5) Diabetes Current Visit: No Status: Chronic Assessment and plan: Noted to be hypoglycemic this morning Will further lower Levemir dosing to 25units qHS closely monitor FS and BG continue ss insulin algorithm will adjust insulin therapy as needed ADA diet Qualifiers: Diabetes mellitus type: other specified (including HORTENCIA) Diabetes mellitus complication status: with unspecified complications 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 insulin use: with chinchilla 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 use Qualified Code(s): E13.8 - Other specified diabetes mellitus with unspecified complications; Z79.4 - penitentiary ( 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 of insulin (6) COPD (chronic obstructive pulmonary disease) Current Visit: No Status: Chronic Assessment and plan: Not in acute exacerbation continue O2 supplementation continue home meds Qualifiers: COPD type: emphysema Emphysema type: panlobular Qualified Code(s): J43.1 - Panlobular emphysema (7) Aortic stenosis Current Visit: No Status: Chronic Qualifiers: Cardiac valve disease etiology: nonrheumatic Qualified Code(s): I35.0 - Nonrheumatic aortic (valve) stenosis (8) A-fib Current Visit: No Status: Chronic Assessment and plan: rate controlled with Amiodarone and BB Not on anticaogulation ASA Qualifiers: Atrial fibrillation type: chronic Qualified Code(s): I48.2 - Chronic atrial fibrillation (9) DVT prophylaxis Current Visit: No Status: Acute Assessment and plan: Heparin sQ (10) Chronic kidney disease Current Visit: Yes Status: Chronic Assessment and plan: Renal function improved from previous day Pt responding well to albumin therapy Will continue albumin with lasix until tomorrow morning's dose. will continue to monitor Qualifiers: Chronic kidney disease stage: stage 3 (moderate) Qualified Code(s): N18.3 - Chronic kidney disease, stage 3 (moderate) - Subjective Interval history: Patient seen and examined at bedside. Resting in chair, reports of feeling well. Agreeing to participate with physical therapy. I spoke with patient's and she states she would like extra help at home with patient's care if patient is to be discharged to home. wax ball knock out worker consulted. awaiting PT eval for discharge disposition likely d/c in am Noted to be hypoglycemic this morning, despite lowering his home insulin dose to half. Will readjust insulin dosing. - Constitutional Vitals: Temp Pulse Resp BP Pulse Ox 97.7 F 53 16 123/58 93 10/16/16 11:02 10/16/16 11:02 10/16/16 11:02 10/16/16 11:02 10/16/16 11:02 General appearance: Present: A&O X 3, morbidly obese, no acute distress - Head Head exam: Present: atraumatic, normocephalic - Eye Eye exam: Present: normal appearance, conjuntiva pink, sclera anicteric - Respiratory Respiratory exam: Present: CTAB. Absent: accessory muscle use, rales, rhonchi, wheezes - Cardiovascular Cardiovascular exam: Present: RRR, +S1, +S2. Absent: diastolic murmur, gallop, rubs, systolic murmur - GI/Abdominal GI/Abdominal exam: Present: normal bowel sounds, soft, no peritoneal signs. Absent: distended, tenderness - Extremities Exam Extremities exam: Present: pedal edema, warm, radial pulses palpable and symetrical. Absent: calf tenderness - Neurological Exam Neurological exam: Present: alert, oriented X3 - Psychiatric Psychiatric exam: Present: normal affect, normal mood Internal Medicine: Result - Labs CBC & Chem 7: 10/16/16 04:32 10/16/16 04:32 Labs: Short CBC 10/16/16 Range/Units 04:32 WBC 6.7 (4.3-11.1) K/mcL Hgb 9.7 L (12.9-16.9) g/dL Hct 32.4 L (37.5-50.1) % Plt Count 180 (140-400) K/mcL Neutrophils # 4.8 (1.6-8.9) K/mcL BMP 10/16/16 04:32 Sodium 138 Potassium 3.6 Chloride 99 Carbon Dioxide 31 H BUN 31 H Creatinine 1.34 H Glucose 39 L* Calcium 9.6 - ABG Interpretation ABG results: ABG ABG pH 7.45 pH Units (7.32-7.45) 10/13/16 21:37 ABG pCO2 46 mmHg (35-45) H 10/13/16 21:37 ABG pO2 60 mmHg (85-104) L 10/13/16 21:37 ABG O2 Saturation 92 % (95-98) L 10/13/16 21:37 PT/INR, D-dimer PT 17.2 Seconds (9.4-12.1) H 10/13/16 15:19 Consult Discharge Plan - Plan Referrals: Jazmyne Lamas CNP [Partnered Physician] - 10/19/16 1:25 pm
[2016-10-16] MEDS ORDERED: Aminoglycoside Consult 1 EACH MC ONE (15:31)
[2016-10-16] MEDS ORDERED: Levofloxacin 750 MG/150 ML 750 MG/150 ML BAG IVPB SCH (18:00)
[2016-10-16] MEDS: Acetaminophen 325 MG TABLET PO PRN (20:58)
[2016-10-16] MEDS: Insulin NPH 100 UNIT/ML (x5UNIT) SQ SCH (20:59)
[2016-10-17 03:53] LABS: Basophils % 0.6 %; Eosinophils # 0.1 K/mcL (0.0-0.6); Hematocrit 29.9 % (37.5-50.1); Hemoglobin 9.3 g/dL (12.9-16.9); Immature Granulocytes % 0.5 % (0-4); Lymphocytes # 0.9 K/mcL (0.6-4.6); Mean Corpuscular HGB Conc 31.1 g/dL (31.6-35.5); Mean Corpuscular Hemoglobin 27.1 pg (28.0-33.3); Mean Corpuscular Volume 87.2 fL (83.0-100.0); Mean Platelet Volume 9.4 fL (9.4-12.4); Monocytes # 0.9 K/mcL (0.0-1.3); Monocytes % 14.6 %; Neutrophils # 4.4 K/mcL (1.6-8.9); Platelet Count 157 K/mcL (140-400); Red Blood Count 3.43 M/mcL (4.19-5.50); Red Cell Distribution Width 16.1 % (11.5-14.5); Segmented Neutrophils % 68.3 %
[2016-10-17 04:03] LABS: BUN/Creatinine Ratio 28 (6-26); Blood Urea Nitrogen 35 mg/dL (8-26); Calcium 9.5 mg/dL (8.6-10.8); Carbon Dioxide 31 mEq/L (19-29); Chloride 99 mEq/L (98-109); Glucose 97 mg/dL (70-99); Magnesium 1.8 mg/dL (1.6-2.6); Osmolality,Calculated 294 (280-300); Potassium 3.8 mEq/L (3.5-4.5); Sodium 138 mEq/L (136-145); eGFR For African Americans > 60 (> 60); eGFR For Non-African Americans 55 (> 60)
[2016-10-17] MEDS: Ipratropium/Albuterol Neb 3 ML IH SCH ×4 (04:38→22:57)
[2016-10-17] MEDS: *HR* Heparin 5,000 UNIT/ML VIAL SQ SCH ×2 (06:00→17:22)
[2016-10-17] MEDS: Albumin 25% 25gram/100mL 25 GM/100 ML IV.SOLN IVPB SCH (06:01)
[2016-10-17] MEDS: Insulin LISPRO 300 UNITS/3 ML VIAL SQ SCH ×4 (08:03→21:01)
[2016-10-17] MEDS: Isosorbide MONOnitrate (24 HR) 30 MG TAB.ER.24H PO SCH (08:04)
[2016-10-17] MEDS: Lactobacillus 1 EACH CAP.SPRINK PO SCH ×2 (08:04→21:01)
[2016-10-17] MEDS: Furosemide 20 MG/2 ML VIAL IVP SCH (08:04)
[2016-10-17] MEDS: Doxycycline 100 MG CAPSULE PO SCH ×2 (08:04→21:01)
[2016-10-17] MEDS: *HR* Amiodarone 200 MG TABLET PO SCH (08:04)
[2016-10-17] MEDS: Aspirin Enteric Coated 81 MG Tablet PO SCH (08:04)
[2016-10-17] MEDS: Acetaminophen 325 MG TABLET PO PRN (09:20)
--- NOTE | 2016-10-17 09:53 | Discharge Summary ---
Date of Encounter: 10/17/16 Time of Encounter: 09:52 - Discharge Diagnosis (1) Acute on chronic respiratory failure with hypoxia Priority: Primary Status: Resolved (2) HCAP (healthcare-associated pneumonia) Priority: Primary Status: Acute (3) UTI (urinary tract infection) Priority: Primary Status: Acute Qualifiers: Urinary tract infection type: site unspecified Hematuria presence: without hematuria Qualified Code(s): N39.0 - Urinary tract infection, site not specified (4) CHF (congestive heart failure) Priority: Secondary Status: Chronic Qualifiers: Congestive heart failure type: diastolic Congestive heart failure chronicity: acute on chronic Qualified Code(s): 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 (5) Diabetes Priority: Secondary Status: Chronic Qualifiers: Diabetes mellitus type: other specified (including HORTENCIA) Diabetes mellitus complication status: with unspecified complications Diabetes mellitus fpc insulin use: with rewrite editor use Qualified Code(s): E13.8 - Other specified diabetes mellitus with unspecified complications; Z79.4 - donor services manager ( 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 of insulin (6) COPD (chronic obstructive pulmonary disease) Priority: Secondary Status: Chronic Qualifiers: COPD type: emphysema Emphysema type: panlobular Qualified Code(s): J43.1 - Panlobular emphysema (7) Aortic stenosis Priority: Secondary Status: Chronic Qualifiers: Cardiac valve disease etiology: nonrheumatic Qualified Code(s): I35.0 - Nonrheumatic aortic (valve) stenosis (8) A-fib Priority: Secondary Status: Chronic Qualifiers: Atrial fibrillation type: chronic Qualified Code(s): I48.2 - Chronic atrial fibrillation (9) DVT prophylaxis Priority: Secondary Status: Acute (10) Chronic kidney disease Priority: Secondary Status: Chronic Qualifiers: Chronic kidney disease stage: stage 3 (moderate) Qualified Code(s): N18.3 - Chronic kidney disease, stage 3 (moderate) - Discharge Medications Prescriptions: Furosemide [Lasix] 40 mg PO BID #30 tablet HYDROcodone/Acet 5/325 mg [Gardena 5-325 mg] 1 tab PO QAM PRN #20 tablet PRN Reason: Pain Home Medications: Albuterol Sulfate [Albuterol Inhaler] 2 puff IH Q4HR PRN 06/02/15 [History] Insulin ASPART [NovoLOG] 2 - 10 unit SQ TIDWM 06/02/15 [History] Levothyroxine [Synthroid] 50 mcg PO QAM 06/02/15 [History] Metoprolol [Lopressor] 25 mg PO BID 06/02/15 [History] Acetaminophen/Diphenhydramine [Acetaminophen Pm Caplet] 1 tab PO HS 01/12/16 [ History] Ipratropium/Albuterol Neb [Duoneb] 3 ml IH QID 03/15/16 [History] Amiodarone [Cordarone] 200 mg PO DAILY 09/16/16 [History] Pantoprazole Sodium [Protonix] 40 mg PO DAILY 09/16/16 [History] Pravastatin Sodium [Pravachol] 40 mg PO QPM 09/16/16 [History] Ferrous Sulfate [Iron] 325 mg PO QPM 10/13/16 [History] Lactobacillus [Culturelle] 1 cap PO BID 10/13/16 [History] Potassium Chloride [Klor-Con 10] 10 meq PO QAM 10/13/16 [History] Amoxicillin/Clavulanate [Augmentin] 875 mg PO BIDWM #5 tablet 10/17/16 [Rx] Aspirin Enteric Coated [Aspirin EC] 81 mg PO DAILY tablet. 10/17/16 [Rx] Doxycycline 100 mg PO BID #5 capsule 10/17/16 [Rx] Furosemide [Lasix] 40 mg PO BID #30 tablet 10/17/16 [Rx] HYDROcodone/Acet 5/325 mg [Gardena 5-325 mg] 1 tab PO QAM PRN #20 tablet 10/17/16 [Rx] Insulin NPH, HUMAN [HumuLIN N] 25 unit SQ HS [id number] 10/17/16 [Rx] Ipratropium/Albuterol Neb [Duoneb] 3 ml IH [id number] PRN #0 inhsol 10/17/16 [Rx] Allergies/Adverse Reactions: Allergies No Known Allergies Allergy (Verified 09/01/16 01:35) Procedures/tests Complete & Pending: Procedures Performed prior 72 hours Category Date Time Status EV echocardiogram Routine Y 10/14/16 09:46 Completed Date of admission: 10/13/16 17:06 Primary care physician: Alonzo Kuhn MD Consults: 10/15/16 08:31 PT [Consult to Physical Therapy] [CONS] Routine Comment: Evaluate, develop and implement POC Reason for Consult: weakness 10/15/16 08:32 OT [Consult to Occupational Therapy] [CONS] Routine Comment: Evaluate, develop and implement POC Reason for Consult: weakness Discharging clinician: Marily Mesa Anticipated date of discharge: 10/17/16 - Patient Status Disposition: Transfer SNF Condition: Fair Functional capacity at discharge: uses cane/walker Overall status at discharge: patient is back to baseline - Discharge Instructions Follow Up With: Jazmyne Lamas CNP [Partnered Physician] - 10/19/16 1:25 pm Forms: ED Satisfaction Letter Additional Instructions: Please follow up with your primary care physician within five days after your discharge from the hospital. Please follow up with cardiology within one week after your discharge from the hospital. Pleas continue oral antibiotics as prescribed. Your home dose of Lasix has been increased to 40mg twice a day. resume all other medications as prescribed by your primary care physician. Your home dose of insulin NPH has been decreased to 25units at bedtime. Closely monitor your fingerstick glucose. - Diet and Activity Activity: as per physical therapy, wear oxygen at all times Diet: diabetic diet Hospital course: Mr. Pan is a 89 year old male with PMH of CHF, Afib, COPD on LTOT who was admitted for acute on chronic respiratory failure secondary to HCAP and CHF decompensation. He was also noted to have UTI for which he was treated. He was started on IV abx and IV diuretics to which he responded appropriately. He was also noted to have DAVID and albumin/lasix challenge was started. Pt responded well to therapy with complete resolution of his DAVID. At this time he is hemodynamically stable, back to baseline respiratory status. He was evaluated by physical therapy and ECF was recommended. Pt is stable for discharged and is pending ECF placement. He is to continue oral abx for a total of 7 days. Pt demonstrates understanding of his diagnosis and agrees with the discharge care and plan. - Time Spent with Patient Total time spent providing and/or coordinating discharge services: Greater than 30 minutes - Constitutional Vitals: Temp Pulse Resp BP Pulse Ox 97.9 F 69 14 128/57 95 10/17/16 03:47 10/17/16 06:44 10/17/16 06:44 10/17/16 06:44 10/17/16 06:44 General appearance: Present: A&O X 3, morbidly obese, no acute distress - Head Head exam: Present: atraumatic, normocephalic - Eye Eye exam: Present: normal appearance, conjuntiva pink, sclera anicteric - Respiratory Respiratory exam: Present: CTAB. Absent: accessory muscle use, rales, rhonchi, wheezes - Cardiovascular Cardiovascular exam: Present: RRR, +S1, +S2. Absent: diastolic murmur, gallop, rubs, systolic murmur - GI/Abdominal GI/Abdominal exam: Present: normal bowel sounds, soft, no peritoneal signs. Absent: distended, tenderness - Extremities Exam Extremities exam: Present: pedal edema, warm, radial pulses palpable and symetrical. Absent: calf tenderness - Neurological Exam Neurological exam: Present: alert, oriented X3 - Psychiatric Psychiatric exam: Present: normal affect, normal mood
--- NOTE | 2016-10-17 10:26 | Physician Discharge Referral ---
ExtendedCare Referral Info Transfer To: [facility] Provider in Charge after Transfer: PCP - Diagnosis (1) Acute on chronic respiratory failure with hypoxia Priority: Primary Status: Resolved (2) HCAP (healthcare-associated pneumonia) Priority: Primary Status: Acute (3) UTI (urinary tract infection) Priority: Secondary Status: Acute (4) CHF (congestive heart failure) Priority: Secondary Status: Chronic (5) Diabetes Priority: Secondary Status: Chronic (6) COPD (chronic obstructive pulmonary disease) Priority: Secondary Status: Chronic (7) Aortic stenosis Priority: Secondary Status: Chronic (8) A-fib Priority: Secondary Status: Chronic (9) DVT prophylaxis Priority: Secondary Status: Acute (10) Chronic kidney disease Priority: Secondary Status: Chronic - Transfer Medications Prescriptions: Furosemide [Lasix] 40 mg PO BID #30 tablet HYDROcodone/Acet 5/325 mg [[place] 5-325 mg] 1 tab PO QAM PRN #20 tablet PRN Reason: Pain Home Medications: Albuterol Sulfate [Albuterol Inhaler] 2 puff IH Q4HR PRN 06/02/15 [History] Insulin ASPART [NovoLOG] 2 - 10 unit SQ TIDWM 06/02/15 [History] Levothyroxine [Synthroid] 50 mcg PO QAM 06/02/15 [History] Metoprolol [Lopressor] 25 mg PO BID 06/02/15 [History] Acetaminophen/Diphenhydramine [Acetaminophen Pm Caplet] 1 tab PO HS 01/12/16 [ History] Ipratropium/Albuterol Neb [Duoneb] 3 ml IH QID 03/15/16 [History] Amiodarone [Cordarone] 200 mg PO DAILY 09/16/16 [History] Pantoprazole Sodium [Protonix] 40 mg PO DAILY 09/16/16 [History] Pravastatin Sodium [Pravachol] 40 mg PO QPM 09/16/16 [History] Ferrous Sulfate [Iron] 325 mg PO QPM 10/13/16 [History] Lactobacillus [Culturelle] 1 cap PO BID 10/13/16 [History] Potassium Chloride [Klor-Con 10] 10 meq PO QAM 10/13/16 [History] Amoxicillin/Clavulanate [Augmentin] 875 mg PO BIDWM #5 tablet 10/17/16 [Rx] Aspirin Enteric Coated [Aspirin EC] 81 mg PO DAILY tablet. 10/17/16 [Rx] Doxycycline 100 mg PO BID #5 capsule 10/17/16 [Rx] Furosemide [Lasix] 40 mg PO BID #30 tablet 10/17/16 [Rx] HYDROcodone/Acet 5/325 mg [[place] 5-325 mg] 1 tab PO QAM PRN #20 tablet 10/17/16 [Rx] Insulin NPH, HUMAN [HumuLIN N] 25 unit SQ HS [id number] 10/17/16 [Rx] Ipratropium/Albuterol Neb [Duoneb] 3 ml IH [id number] PRN #0 inhsol 10/17/16 [Rx] Allergies/Adverse Reactions: Allergies No Known Allergies Allergy (Verified 09/01/16 01:35) - Respiratory Orders Smoking Cessation: Smoking cessation has been advised. For more information, call the [place] Tobacco Quit Line at 7-477-KNZI-NOW. - Rehabiliation Orders Other: Please follow up with your primary care physician within five days after your discharge from the hospital. Please follow up with cardiology within one week after your discharge from the hospital. Pleas continue oral antibiotics as prescribed. Your home dose of Lasix has been increased to 40mg twice a day. resume all other medications as prescribed by your primary care physician. Your home dose of insulin NPH has been decreased to 25units at bedtime. Closely monitor your fingerstick glucose. CERTIFICATION: I certify that the transfer of the above named patient to an Extended Care Facility is necessary for the continuing treatment of the diagnosis listed. The above information is true and accurate reflection of patient's current condition. Confidential - Redisclosure prohibited without a patient's written consent.
[2016-10-17] MEDS: Furosemide 40 MG TABLET PO SCH (16:23)
[2016-10-17] MEDS: Insulin NPH 100 UNIT/ML (x5UNIT) SQ SCH (21:12)
[2016-10-18] MEDS: Ipratropium/Albuterol Neb 3 ML IH SCH ×4 (03:58→22:02)
[2016-10-18] MEDS: *HR* Heparin 5,000 UNIT/ML VIAL SQ SCH ×2 (05:54→17:09)
[2016-10-18] MEDS: Furosemide 40 MG TABLET PO SCH ×2 (08:12→15:53)
[2016-10-18] MEDS: Aspirin Enteric Coated 81 MG Tablet PO SCH (08:12)
[2016-10-18] MEDS: Isosorbide MONOnitrate (24 HR) 30 MG TAB.ER.24H PO SCH (08:12)
[2016-10-18] MEDS: Lactobacillus 1 EACH CAP.SPRINK PO SCH ×2 (08:12→21:24)
[2016-10-18] MEDS: Doxycycline 100 MG CAPSULE PO SCH ×2 (08:13→21:24)
[2016-10-18] MEDS: Insulin LISPRO 300 UNITS/3 ML VIAL SQ SCH ×4 (08:17→21:26)
[2016-10-18] MEDS: *HR* Amiodarone 200 MG TABLET PO SCH (08:27)
--- NOTE | 2016-10-18 11:42 | Internal Med Progress Note ---
Date of Encounter: 10/18/16 Time of Encounter: 10:55 - Assessment and plan (1) Acute on chronic respiratory failure with hypoxia Current Visit: No Status: Resolved (2) HCAP (healthcare-associated pneumonia) Current Visit: No Status: Acute (3) UTI (urinary tract infection) Current Visit: Yes Status: Acute Qualifiers: Urinary tract infection type: site unspecified Hematuria presence: without hematuria Qualified Code(s): N39.0 - Urinary tract infection, site not specified (4) CHF (congestive heart failure) Current Visit: Yes Status: Chronic Qualifiers: Congestive heart failure type: diastolic Congestive heart failure chronicity: acute on chronic Qualified Code(s): 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 (5) Diabetes Current Visit: No Status: Chronic Qualifiers: Diabetes mellitus type: other specified (including HORTENCIA) Diabetes mellitus complication status: with unspecified complications Diabetes mellitus superintendent terminal insulin use: with fci use Qualified Code(s): E13.8 - Other specified diabetes mellitus with unspecified complications; Z79.4 - penitentiary ( 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 of insulin (6) COPD (chronic obstructive pulmonary disease) Current Visit: No Status: Chronic Qualifiers: COPD type: emphysema Emphysema type: panlobular Qualified Code(s): J43.1 - Panlobular emphysema (7) Aortic stenosis Current Visit: No Status: Chronic Qualifiers: Cardiac valve disease etiology: nonrheumatic Qualified Code(s): I35.0 - Nonrheumatic aortic (valve) stenosis (8) A-fib Current Visit: No Status: Chronic Qualifiers: Atrial fibrillation type: chronic Qualified Code(s): I48.2 - Chronic atrial fibrillation (9) DVT prophylaxis Current Visit: No Status: Acute (10) Chronic kidney disease Current Visit: Yes Status: Chronic Qualifiers: Chronic kidney disease stage: stage 3 (moderate) Qualified Code(s): N18.3 - Chronic kidney disease, stage 3 (moderate) - Subjective Interval history: Patient seen and examined at bedside. Resting in chair, reports of feeling well. Reports of having a very good night and sleeping all through out the night. States he had a good BM yesterday and overall is feeling better. Patient was discharged to ECF yesterday. Discharge pending ECF placement Will continue all of patients home meds currently on oral diuretics, oral abx. Awaiting discharge - Constitutional Vitals: Temp Pulse Resp BP Pulse Ox 98.7 F 66 16 120/62 94 10/18/16 07:30 10/18/16 07:30 10/18/16 07:30 10/18/16 07:30 10/18/16 07:30 General appearance: Present: A&O X 3, morbidly obese, no acute distress - Head Head exam: Present: atraumatic, normocephalic - Eye Eye exam: Present: normal appearance, conjuntiva pink, sclera anicteric - Respiratory Respiratory exam: Absent: respiratory distress, wheezes - Cardiovascular Cardiovascular exam: Present: RRR, +S1, +S2. Absent: diastolic murmur, gallop, rubs, systolic murmur - GI/Abdominal GI/Abdominal exam: Present: normal bowel sounds, soft, no peritoneal signs. Absent: distended, tenderness - Extremities Exam Extremities exam: Present: pedal edema, warm, radial pulses palpable and symetrical. Absent: calf tenderness - Neurological Exam Neurological exam: Present: alert, oriented X3 - Psychiatric Psychiatric exam: Present: normal affect, normal mood Internal Medicine: Result - Labs CBC & Chem 7: 10/17/16 03:32 10/17/16 03:32 - ABG Interpretation ABG results: ABG ABG pH 7.45 pH Units (7.32-7.45) 10/13/16 21:37 ABG pCO2 46 mmHg (35-45) H 10/13/16 21:37 ABG pO2 60 mmHg (85-104) L 10/13/16 21:37 ABG O2 Saturation 92 % (95-98) L 10/13/16 21:37 PT/INR, D-dimer PT 17.2 Seconds (9.4-12.1) H 10/13/16 15:19 Consult Discharge Plan - Plan Additional Instructions: Please follow up with your primary care physician within five days after your discharge from the hospital. Please follow up with cardiology within one week after your discharge from the hospital. Pleas continue oral antibiotics as prescribed. Your home dose of Lasix has been increased to 40mg twice a day. resume all other medications as prescribed by your primary care physician. Your home dose of insulin NPH has been decreased to 25units at bedtime. Closely monitor your fingerstick glucose. Referrals: Jazmyne Lamas CNP [Partnered Physician] - 10/19/16 1:25 pm Prescriptions: Furosemide [Lasix] 40 mg PO BID #30 tablet HYDROcodone/Acet 5/325 mg [[place] 5-325 mg] 1 tab PO QAM PRN #20 tablet PRN Reason: Pain
[2016-10-18] MEDS: Insulin NPH 100 UNIT/ML (x5UNIT) SQ SCH (21:25)
[2016-10-19] MEDS: Acetaminophen 325 MG TABLET PO PRN (03:44)
[2016-10-19] MEDS: Ipratropium/Albuterol Neb 3 ML IH SCH ×4 (04:35→22:52)
[2016-10-19] MEDS: *HR* Heparin 5,000 UNIT/ML VIAL SQ SCH ×2 (05:32→18:26)
[2016-10-19] MEDS: Insulin LISPRO 300 UNITS/3 ML VIAL SQ SCH ×3 (08:00→16:25)
--- NOTE | 2016-10-19 08:58 | Internal Med Progress Note ---
Date of Encounter: 10/19/16 Time of Encounter: 08:56 - Assessment and plan (1) Acute on chronic respiratory failure with hypoxia Current Visit: No Status: Resolved (2) HCAP (healthcare-associated pneumonia) Current Visit: No Status: Acute (3) UTI (urinary tract infection) Current Visit: Yes Status: Acute Qualifiers: Urinary tract infection type: site unspecified Hematuria presence: without hematuria Qualified Code(s): N39.0 - Urinary tract infection, site not specified (4) CHF (congestive heart failure) Current Visit: Yes Status: Chronic Qualifiers: Congestive heart failure type: diastolic Congestive heart failure chronicity: acute on chronic Qualified Code(s): 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 (5) Diabetes Current Visit: No Status: Chronic Qualifiers: Diabetes mellitus type: other specified (including HORTENCIA) Diabetes mellitus complication status: with unspecified complications 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: with alf use Qualified Code(s): E13.8 - Other specified diabetes mellitus with unspecified complications; Z79.4 - assisted ( 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 of insulin (6) COPD (chronic obstructive pulmonary disease) Current Visit: No Status: Chronic Qualifiers: COPD type: emphysema Emphysema type: panlobular Qualified Code(s): J43.1 - Panlobular emphysema (7) Aortic stenosis Current Visit: No Status: Chronic Qualifiers: Cardiac valve disease etiology: nonrheumatic Qualified Code(s): I35.0 - Nonrheumatic aortic (valve) stenosis (8) A-fib Current Visit: No Status: Chronic Qualifiers: Atrial fibrillation type: chronic Qualified Code(s): I48.2 - Chronic atrial fibrillation (9) DVT prophylaxis Current Visit: No Status: Acute (10) Chronic kidney disease Current Visit: Yes Status: Chronic Qualifiers: Chronic kidney disease stage: stage 3 (moderate) Qualified Code(s): N18.3 - Chronic kidney disease, stage 3 (moderate) - Subjective Interval history: Patient seen and examined at bedside. Resting in chair, states he feels well and denies any discomfort at this time Patient was discharged to ECF on 10/17/16. Discharge pending ECF placement Will continue all of patients home meds currently on oral diuretics, oral abx. Awaiting discharge, pending placement - Constitutional Vitals: Temp Pulse Resp BP Pulse Ox 98.1 F 60 18 126/54 92 10/19/16 07:49 10/19/16 07:49 10/19/16 07:49 10/19/16 07:49 10/19/16 07:49 General appearance: Present: A&O X 3, morbidly obese, no acute distress - Head Head exam: Present: atraumatic, normocephalic - Eye Eye exam: Present: conjuntiva pink, sclera anicteric - Respiratory Respiratory exam: Absent: respiratory distress, wheezes - Cardiovascular Cardiovascular exam: Present: RRR, +S1, +S2 - GI/Abdominal GI/Abdominal exam: Present: normal bowel sounds, soft. Absent: tenderness - Extremities Exam Extremities exam: Present: pedal edema, warm, radial pulses palpable and symetrical - Neurological Exam Neurological exam: Present: alert, oriented X3 - Psychiatric Psychiatric exam: Present: normal affect, normal mood Internal Medicine: Result - Labs CBC & Chem 7: 10/17/16 03:32 10/17/16 03:32 - ABG Interpretation ABG results: ABG ABG pH 7.45 pH Units (7.32-7.45) 10/13/16 21:37 ABG pCO2 46 mmHg (35-45) H 10/13/16 21:37 ABG pO2 60 mmHg (85-104) L 10/13/16 21:37 ABG O2 Saturation 92 % (95-98) L 10/13/16 21:37 PT/INR, D-dimer PT 17.2 Seconds (9.4-12.1) H 10/13/16 15:19 Consult Discharge Plan - Plan Additional Instructions: Please follow up with your primary care physician within five days after your discharge from the hospital. Please follow up with cardiology within one week after your discharge from the hospital. Pleas continue oral antibiotics as prescribed. Your home dose of Lasix has been increased to 40mg twice a day. resume all other medications as prescribed by your primary care physician. Your home dose of insulin NPH has been decreased to 25units at bedtime. Closely monitor your fingerstick glucose. Referrals: Jazmyne Lamas CNP [Partnered Physician] - 10/19/16 1:25 pm Prescriptions: Furosemide [Lasix] 40 mg PO BID #30 tablet HYDROcodone/Acet 5/325 mg [[place] 5-325 mg] 1 tab PO QAM PRN #20 tablet PRN Reason: Pain
[2016-10-19] MEDS: Doxycycline 100 MG CAPSULE PO SCH ×2 (09:32→21:09)
[2016-10-19] MEDS: Isosorbide MONOnitrate (24 HR) 30 MG TAB.ER.24H PO SCH (09:32)
[2016-10-19] MEDS: Aspirin Enteric Coated 81 MG Tablet PO SCH (09:32)
[2016-10-19] MEDS: Furosemide 40 MG TABLET PO SCH ×2 (09:32→17:48)
[2016-10-19] MEDS: Lactobacillus 1 EACH CAP.SPRINK PO SCH ×2 (09:32→21:09)
[2016-10-19] MEDS: *HR* Amiodarone 200 MG TABLET PO SCH (09:32)
[2016-10-19] MEDS: Insulin NPH 100 UNIT/ML (x5UNIT) SQ SCH (21:09)
[2016-10-20] MEDS: Ipratropium/Albuterol Neb 3 ML IH SCH ×4 (04:29→23:02)
[2016-10-20] MEDS: *HR* Heparin 5,000 UNIT/ML VIAL SQ SCH ×2 (06:14→17:33)
[2016-10-20] MEDS: Aspirin Enteric Coated 81 MG Tablet PO SCH (08:36)
[2016-10-20] MEDS: Furosemide 40 MG TABLET PO SCH ×2 (08:36→17:33)
[2016-10-20] MEDS: Lactobacillus 1 EACH CAP.SPRINK PO SCH ×2 (08:36→21:24)
[2016-10-20] MEDS: Doxycycline 100 MG CAPSULE PO SCH ×2 (08:36→21:24)
[2016-10-20] MEDS: Insulin LISPRO 300 UNITS/3 ML VIAL SQ SCH ×5 (08:37→21:27)
[2016-10-20] MEDS: *HR* Amiodarone 200 MG TABLET PO SCH (09:40)
--- NOTE | 2016-10-20 10:54 | Internal Med Progress Note ---
Date of Encounter: 10/20/16 Time of Encounter: 10:52 - Assessment and plan (1) Acute on chronic respiratory failure with hypoxia Current Visit: No Status: Resolved (2) HCAP (healthcare-associated pneumonia) Current Visit: No Status: Acute (3) UTI (urinary tract infection) Current Visit: Yes Status: Acute Qualifiers: Urinary tract infection type: site unspecified Hematuria presence: without hematuria Qualified Code(s): N39.0 - Urinary tract infection, site not specified (4) CHF (congestive heart failure) Current Visit: Yes Status: Chronic Qualifiers: Congestive heart failure type: diastolic Congestive heart failure chronicity: acute on chronic Qualified Code(s): 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 (5) Diabetes Current Visit: No Status: Chronic Qualifiers: Diabetes mellitus type: other specified (including HORTENCIA) Diabetes mellitus complication status: with unspecified complications Diabetes mellitus terminal superintendent insulin use: with nursing home use Qualified Code(s): E13.8 - Other specified diabetes mellitus with unspecified complications; Z79.4 - custodial ( 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 of insulin (6) COPD (chronic obstructive pulmonary disease) Current Visit: No Status: Chronic Qualifiers: COPD type: emphysema Emphysema type: panlobular Qualified Code(s): J43.1 - Panlobular emphysema (7) Aortic stenosis Current Visit: No Status: Chronic Qualifiers: Cardiac valve disease etiology: nonrheumatic Qualified Code(s): I35.0 - Nonrheumatic aortic (valve) stenosis (8) A-fib Current Visit: No Status: Chronic Qualifiers: Atrial fibrillation type: chronic Qualified Code(s): I48.2 - Chronic atrial fibrillation (9) DVT prophylaxis Current Visit: No Status: Acute (10) Chronic kidney disease Current Visit: Yes Status: Chronic Qualifiers: Chronic kidney disease stage: stage 3 (moderate) Qualified Code(s): N18.3 - Chronic kidney disease, stage 3 (moderate) - Subjective Interval history: Patient seen and examined at bedside. Resting in chair, states he feels well and denies any discomfort at this time Noted to have asymptomatic bradycardia yesterday. Rate control medications held for the evening dose and readjusted BB dose. Currently BP and HR within acceptable range Pt reports of doing well overall Asked nursing staff to continue physical therapy and ambulate the patient with assistance while hospitalized Pt finished course of oral abx today will continue all of patients home medications Patient was discharged to ECF on 10/17/16. Discharge pending ECF placement - Constitutional Vitals: Temp Pulse Resp BP Pulse Ox 97.3 F L 71 18 141/63 98 10/20/16 07:50 10/20/16 07:50 10/20/16 10:42 10/20/16 07:50 10/20/16 10:42 General appearance: Present: A&O X 3, morbidly obese, no acute distress - Head Head exam: Present: atraumatic, normocephalic - Eye Eye exam: Present: normal appearance, conjuntiva pink, sclera anicteric - Respiratory Respiratory exam: Present: CTAB. Absent: accessory muscle use, rales, rhonchi, wheezes - Cardiovascular Cardiovascular exam: Present: RRR, +S1, +S2 - GI/Abdominal GI/Abdominal exam: Present: normal bowel sounds, soft, no peritoneal signs. Absent: distended, tenderness - Extremities Exam Extremities exam: Present: pedal edema, warm, radial pulses palpable and symetrical. Absent: calf tenderness - Neurological Exam Neurological exam: Present: alert, oriented X3 - Psychiatric Psychiatric exam: Present: normal affect, normal mood Internal Medicine: Result - Labs CBC & Chem 7: 10/17/16 03:32 10/17/16 03:32 - ABG Interpretation ABG results: ABG ABG pH 7.45 pH Units (7.32-7.45) 10/13/16 21:37 ABG pCO2 46 mmHg (35-45) H 10/13/16 21:37 ABG pO2 60 mmHg (85-104) L 10/13/16 21:37 ABG O2 Saturation 92 % (95-98) L 10/13/16 21:37 PT/INR, D-dimer PT 17.2 Seconds (9.4-12.1) H 10/13/16 15:19 Consult Discharge Plan - Plan Additional Instructions: Please follow up with your primary care physician within five days after your discharge from the hospital. Please follow up with cardiology within one week after your discharge from the hospital. Pleas continue oral antibiotics as prescribed. Your home dose of Lasix has been increased to 40mg twice a day. resume all other medications as prescribed by your primary care physician. Your home dose of insulin NPH has been decreased to 25units at bedtime. Closely monitor your fingerstick glucose. Referrals: Jazmyne Lamas CNP [Partnered Physician] - 10/19/16 1:25 pm Prescriptions: Furosemide [Lasix] 40 mg PO BID #30 tablet HYDROcodone/Acet 5/325 mg [[place] 5-325 mg] 1 tab PO QAM PRN #20 tablet PRN Reason: Pain
[2016-10-20] MEDS: Insulin NPH 100 UNIT/ML (x5UNIT) SQ SCH (21:24)
[2016-10-21] MEDS: Ipratropium/Albuterol Neb 3 ML IH SCH ×3 (05:01→15:12)
[2016-10-21] MEDS: *HR* Heparin 5,000 UNIT/ML VIAL SQ SCH ×2 (06:15→17:00)
[2016-10-21] MEDS: Insulin LISPRO 300 UNITS/3 ML VIAL SQ SCH ×4 (07:57→20:46)
[2016-10-21] MEDS: Furosemide 40 MG TABLET PO SCH ×2 (07:58→17:00)
[2016-10-21] MEDS: Aspirin Enteric Coated 81 MG Tablet PO SCH (08:00)
[2016-10-21] MEDS: Lactobacillus 1 EACH CAP.SPRINK PO SCH ×2 (08:00→20:45)
[2016-10-21] MEDS: Isosorbide MONOnitrate (24 HR) 30 MG TAB.ER.24H PO SCH (08:00)
[2016-10-21] MEDS: *HR* Amiodarone 200 MG TABLET PO SCH (08:00)
--- NOTE | 2016-10-21 12:22 | Internal Med Progress Note ---
Date of Encounter: 10/21/16 Time of Encounter: 12:20 - Assessment and plan (1) Acute on chronic respiratory failure with hypoxia Current Visit: No Status: Resolved (2) HCAP (healthcare-associated pneumonia) Current Visit: No Status: Acute (3) UTI (urinary tract infection) Current Visit: Yes Status: Acute Qualifiers: Urinary tract infection type: site unspecified Hematuria presence: without hematuria Qualified Code(s): N39.0 - Urinary tract infection, site not specified (4) CHF (congestive heart failure) Current Visit: Yes Status: Chronic Qualifiers: Congestive heart failure type: diastolic Congestive heart failure chronicity: acute on chronic Qualified Code(s): 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 (5) Diabetes Current Visit: No Status: Chronic Qualifiers: Diabetes mellitus type: other specified (including HORTENCIA) Diabetes mellitus complication status: with unspecified complications 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 service insulin use: with care home use Qualified Code(s): E13.8 - Other specified diabetes mellitus with unspecified complications; Z79.4 - prison ( 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 of insulin (6) COPD (chronic obstructive pulmonary disease) Current Visit: No Status: Chronic Qualifiers: COPD type: emphysema Emphysema type: panlobular Qualified Code(s): J43.1 - Panlobular emphysema (7) Aortic stenosis Current Visit: No Status: Chronic Qualifiers: Cardiac valve disease etiology: nonrheumatic Qualified Code(s): I35.0 - Nonrheumatic aortic (valve) stenosis (8) A-fib Current Visit: No Status: Chronic Qualifiers: Atrial fibrillation type: chronic Qualified Code(s): I48.2 - Chronic atrial fibrillation (9) DVT prophylaxis Current Visit: No Status: Acute (10) Chronic kidney disease Current Visit: Yes Status: Chronic Qualifiers: Chronic kidney disease stage: stage 3 (moderate) Qualified Code(s): N18.3 - Chronic kidney disease, stage 3 (moderate) - Subjective Interval history: Patient seen and examined at bedside. Resting in chair, states he feels well and denies any discomfort at this time Noted to have HR fluctuate between 50s-60s even with reduced BB dose (25mg PO BID). REmains clinically asymptomatic Will continue medications at current medications, however if HR persistently remains low and BP within acceptable range, will further lower BB dose to 12.5mg twice a day Currently BP and HR within acceptable range Pt reports of doing well overall Pt to continue to get physical therapy and ambulate with walker while hospitalized. Pt states he was able to walk to the nurses station with a walker and back yesterday, will continue Pt finished course of oral abx on 10/20/16 will continue all of patients home medications Patient was discharged to ECF on 10/17/16. Discharge pending ECF placement - Constitutional Vitals: Temp Pulse Resp BP Pulse Ox 97.8 F 62 20 115/54 94 10/21/16 12:14 10/21/16 12:14 10/21/16 12:14 10/21/16 12:14 10/21/16 12:14 General appearance: Present: cooperative, A&O X 3, morbidly obese, pleasant, no acute distress, answers questions appropriately - Head Head exam: Present: atraumatic, normocephalic - Eye Eye exam: Present: normal appearance, conjuntiva pink, sclera anicteric - Respiratory Respiratory exam: Present: CTAB. Absent: accessory muscle use, rales, rhonchi, wheezes - Cardiovascular Cardiovascular exam: Present: RRR, +S1, +S2. Absent: diastolic murmur, gallop, rubs, systolic murmur - GI/Abdominal GI/Abdominal exam: Present: normal bowel sounds, soft, no peritoneal signs. Absent: distended, tenderness - Extremities Exam Extremities exam: Present: pedal edema, warm, radial pulses palpable and symetrical. Absent: calf tenderness - Neurological Exam Neurological exam: Present: alert, oriented X3 - Psychiatric Psychiatric exam: Present: normal affect, normal mood Internal Medicine: Result - Labs CBC & Chem 7: 10/17/16 03:32 10/17/16 03:32 - ABG Interpretation ABG results: ABG ABG pH 7.45 pH Units (7.32-7.45) 10/13/16 21:37 ABG pCO2 46 mmHg (35-45) H 10/13/16 21:37 ABG pO2 60 mmHg (85-104) L 10/13/16 21:37 ABG O2 Saturation 92 % (95-98) L 10/13/16 21:37 PT/INR, D-dimer PT 17.2 Seconds (9.4-12.1) H 10/13/16 15:19 Consult Discharge Plan - Plan Additional Instructions: Please follow up with your primary care physician within five days after your discharge from the hospital. Please follow up with cardiology within one week after your discharge from the hospital. Pleas continue oral antibiotics as prescribed. Your home dose of Lasix has been increased to 40mg twice a day. resume all other medications as prescribed by your primary care physician. Your home dose of insulin NPH has been decreased to 25units at bedtime. Closely monitor your fingerstick glucose. Referrals: Jazmyne Lamas CNP [Partnered Physician] - 10/19/16 1:25 pm Prescriptions: Furosemide [Lasix] 40 mg PO BID #30 tablet HYDROcodone/Acet 5/325 mg [[place] 5-325 mg] 1 tab PO QAM PRN #20 tablet PRN Reason: Pain
[2016-10-21] MEDS: Insulin NPH 100 UNIT/ML (x5UNIT) SQ SCH (20:46)
[2016-10-22] MEDS: Ipratropium/Albuterol Neb 3 ML IH SCH ×3 (00:06→10:48)
[2016-10-22] MEDS: *HR* Heparin 5,000 UNIT/ML VIAL SQ SCH (05:34)
[2016-10-22] MEDS: Isosorbide MONOnitrate (24 HR) 30 MG TAB.ER.24H PO SCH (09:17)
[2016-10-22] MEDS: Aspirin Enteric Coated 81 MG Tablet PO SCH (09:17)
[2016-10-22] MEDS: Lactobacillus 1 EACH CAP.SPRINK PO SCH (09:17)
[2016-10-22] MEDS: *HR* Amiodarone 200 MG TABLET PO SCH (09:17)
[2016-10-22] MEDS: Furosemide 40 MG TABLET PO SCH (09:17)
[2016-10-22] MEDS: Insulin LISPRO 300 UNITS/3 ML VIAL SQ SCH ×2 (09:19→11:50)
[2016-10-22 10:58] VITALS: BP 125/57
--- NOTE | 2016-10-22 13:07 | Internal Med Progress Note ---
Date of Encounter: 10/22/16 Time of Encounter: 13:05 - Assessment and plan (1) Acute on chronic respiratory failure with hypoxia Current Visit: No Status: Resolved (2) HCAP (healthcare-associated pneumonia) Current Visit: No Status: Acute (3) UTI (urinary tract infection) Current Visit: Yes Status: Acute Qualifiers: Urinary tract infection type: site unspecified Hematuria presence: without hematuria Qualified Code(s): N39.0 - Urinary tract infection, site not specified (4) CHF (congestive heart failure) Current Visit: Yes Status: Chronic Qualifiers: Congestive heart failure type: diastolic Congestive heart failure chronicity: acute on chronic Qualified Code(s): 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 (5) Diabetes Current Visit: No Status: Chronic Qualifiers: Diabetes mellitus type: other specified (including HORTENCIA) Diabetes mellitus complication status: with unspecified complications Diabetes mellitus terminal manager insulin use: with [facility] use Qualified Code(s): E13.8 - Other specified diabetes mellitus with unspecified complications; Z79.4 - group home ( 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 of insulin (6) COPD (chronic obstructive pulmonary disease) Current Visit: No Status: Chronic Qualifiers: COPD type: emphysema Emphysema type: panlobular Qualified Code(s): J43.1 - Panlobular emphysema (7) Aortic stenosis Current Visit: No Status: Chronic Qualifiers: Cardiac valve disease etiology: nonrheumatic Qualified Code(s): I35.0 - Nonrheumatic aortic (valve) stenosis (8) A-fib Current Visit: No Status: Chronic Qualifiers: Atrial fibrillation type: chronic Qualified Code(s): I48.2 - Chronic atrial fibrillation (9) DVT prophylaxis Current Visit: No Status: Acute (10) Chronic kidney disease Current Visit: Yes Status: Chronic Qualifiers: Chronic kidney disease stage: stage 3 (moderate) Qualified Code(s): N18.3 - Chronic kidney disease, stage 3 (moderate) - Subjective Interval history: Patient seen and examined at bedside. Resting in chair, states he feels well and denies any discomfort at this time HR better controlled. Remains clinically asymptomatic Will continue medications at current medications, however if HR persistently remains low and BP within acceptable range, will further lower BB dose to 12.5mg twice a day Currently BP and HR within acceptable range Pt reports of doing well overall Pt to continue to get physical therapy and ambulate with walker while hospitalized. Pt states he was able to walk to the nurses station with a walker and back yesterday, will continue Pt finished course of oral abx on 10/20/16 will continue all of patients home medications Patient was discharged to ECF on 10/17/16. Discharge pending ECF placement - Constitutional Vitals: Temp Pulse Resp BP Pulse Ox 97.7 F 63 16 125/57 99 10/22/16 10:52 10/22/16 10:52 10/22/16 10:52 10/22/16 10:52 10/22/16 10:52 General appearance: Present: cooperative, A&O X 3, morbidly obese, pleasant, no acute distress, answers questions appropriately - Head Head exam: Present: atraumatic, normocephalic - Eye Eye exam: Present: normal appearance, conjuntiva pink, sclera anicteric - Respiratory Respiratory exam: Present: CTAB. Absent: accessory muscle use, rales, rhonchi, wheezes - Cardiovascular Cardiovascular exam: Present: RRR, +S1, +S2. Absent: diastolic murmur, gallop, rubs, systolic murmur - GI/Abdominal GI/Abdominal exam: Present: normal bowel sounds, soft, no peritoneal signs. Absent: distended, tenderness - Extremities Exam Extremities exam: Present: pedal edema, warm, radial pulses palpable and symetrical. Absent: calf tenderness - Neurological Exam Neurological exam: Present: alert, oriented X3, no focal deficits - Psychiatric Psychiatric exam: Present: normal affect, normal mood Internal Medicine: Result - Labs CBC & Chem 7: 10/17/16 03:32 10/17/16 03:32 - ABG Interpretation ABG results: ABG ABG pH 7.45 pH Units (7.32-7.45) 10/13/16 21:37 ABG pCO2 46 mmHg (35-45) H 10/13/16 21:37 ABG pO2 60 mmHg (85-104) L 10/13/16 21:37 ABG O2 Saturation 92 % (95-98) L 10/13/16 21:37 PT/INR, D-dimer PT 17.2 Seconds (9.4-12.1) H 10/13/16 15:19 - VTE Documentation of Mechanical Device: Intermittent pneumatic compression device Consult Discharge Plan - Plan Additional Instructions: Please follow up with your primary care physician within five days after your discharge from the hospital. Please follow up with cardiology within one week after your discharge from the hospital. Pleas continue oral antibiotics as prescribed. Your home dose of Lasix has been increased to 40mg twice a day. resume all other medications as prescribed by your primary care physician. Your home dose of insulin NPH has been decreased to 25units at bedtime. Closely monitor your fingerstick glucose. Referrals: Jazmyne Lamas CNP [Partnered Physician] - 10/19/16 1:25 pm (Patient is going ECF) Prescriptions: Furosemide [Lasix] 40 mg PO BID #30 tablet HYDROcodone/Acet 5/325 mg [[place] 5-325 mg] 1 tab PO QAM PRN #20 tablet PRN Reason: Pain
== END 2016-10-22 14:47 | DRG 871 ==
LOC: EMEROO 13:35 → 2ANU 13:35
PROVIDERS: ADMIT Internal Medicine; ATTEND Internal Medicine

== ENCOUNTER 2016-11-19 19:28 | Observation (INO) ==
[2016-11-19] MEDS ORDERED: Naloxone 0.4 MG/ML INJ IVP PRN (23:27)
[2016-11-19] MEDS ORDERED: Ondansetron 4 MG/2 ML VIAL IVP PRN (23:27)
[2016-11-19] MEDS ORDERED: Ipratropium/Albuterol Neb 3 ML IH PRN (23:30)
[2016-11-19] MEDS ORDERED: Dextrose Gel 15 GM PO PRN ×2 (23:31)
[2016-11-19] MEDS ORDERED: D5% in Water 1,000 ML IVC PRN (23:31)
[2016-11-19] MEDS ORDERED: *HR* Dextrose 50 % in Water (Syg) 50 ML SYRINGE IVP PRN (23:31)
[2016-11-19] MEDS ORDERED: Nitroglycerin 0.4 MG TAB.SUBL SL PRN (23:32)
--- NOTE | 2016-11-19 23:44 | Internal Med History&Physical ---
Date of Encounter: 11/19/16 Time of Encounter: 23:15 Assessment and Plan (1) CHF exacerbation Current visit: No Status: Acute Acute onset of chest pain likely secondary to CHF decompensation Given clinical presentation, will start IV lasix 40mg BID monitor daily weights, strict I/Os continue O2 supplementation monitor O2 saturation Qualifiers: Congestive heart failure type: diastolic Qualified Code(s): 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 (2) Chest pain Current visit: No Status: Resolved resolved at this time will monitor serial TNI patient has history of chronically elevated TNI his last TNI prior to his discharge during his last hospitalization was 0.16 therefore his current TNI is lower than the last TNI he was discharged with No chest pain reported at this time will continue tele monitoring nitroglycerin SL prn chest pain Qualifiers: Chest pain type: unspecified Qualified Code(s): R07.9 - Chest pain, unspecified (3) Fyerz-lb-mxkeipj kidney injury Current visit: No Status: Acute history of stage 3 CKD received albumin challenge during his last hospitalization and responded well to therapy will closely monitor at this time if renal function continues to deteriorate, consider albumin therapy prior to lasix administration Qualifiers: Acute renal failure type: unspecified Chronic kidney disease stage: stage 3 (moderate) Qualified Code(s): N17.9 - Acute kidney failure, unspecified; N18.3 - Chronic kidney disease, stage 3 (moderate) (4) Atrial fibrillation Current visit: No Status: Chronic rate currently controlled with BB ASA for cva ppx not on anticoagulation due to history of bleeds/fall Qualifiers: Atrial fibrillation type: paroxysmal Qualified Code(s): I48.0 - Paroxysmal atrial fibrillation (5) CAD (coronary artery disease) Current visit: No Status: Chronic resume home medications chest pain resolved at this time will closely monitor Qualifiers: Coronary Disease-Associated Artery/Lesion type: [place] artery [place] vs. transplanted heart: [place] heart Associated angina: without angina Qualified Code(s): I25.10 - Atherosclerotic heart disease of [place] coronary artery without angina pectoris (6) Diabetes Current visit: No Status: Chronic started home insulin dosage added sliding scale insulin algorithm monitor FS and BG Qualifiers: Diabetes mellitus type: type 2 Diabetes mellitus complication status: with kidney complications Diabetes mellitus complication detail: with chronic kidney disease Diabetes mellitus usp insulin use: with usp use Chronic kidney disease stage: stage 3 (moderate) Qualified Code(s): E11.22 - Type 2 diabetes mellitus with diabetic chronic kidney disease; N18.3 - Chronic kidney disease, stage 3 (moderate); Z79.4 - snf (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 of insulin (7) DVT prophylaxis Current visit: No Status: Acute Heparin sQ (8) Elevated troponin Current visit: No Status: Chronic Internal Medicine - H&P: HPI Chief complaint: transfer from [facility] for positive troponin Admitted From: Intrahospital Transfer Plans for Post Hospital Care: Home History of present illness: Mr. Pan is a 89 year old male with PMH of CHF, Afib, COPD on LTOT who was transferred from [facility] for evaluation of chest pain and positive troponin. Patient states he was in his usual state of health and was resting in chair when he had an acute onset of localized, sharp left sided chest pain. States the pain lasted for about an hour due to which he decided to call EMS. Upon arrival to the ER, his chest pain subsided but was noted to have positive TNI due to which he was transferred to [facility]. He has been chest pain free since his arrival to the ER and has history of elevated TNI. At this time, he is resting comfortably in bed and denies any headache, chest pain, sob, abd pain, n/v, fever, or chills. He is noted to have worsening of his b/l LE edema but reports of being compliant with his home medications and having a good urine output. He is noted to have bibasilar crackles on auscultation but denies any respiratory distress and currently saturating well on nasal cannula. Detailed discussion was held with the patient in regards to his advance directives. He states if he goes into cardiac arrest, he does not want to be resuscitated, however if he goes into respiratory failure without cardiac arrest , he wants to be intubated. Therefore, as per his wishes, he is only DNR. Labs from [facility] ER: WBC: 7.7 Hgb: 10.3 Hct: 32.6 Plt: 240 Na: 140 K: 4.5 Cl: 102 CO2: 32 BUN: 38 Crea: 1.87 Glu: 187 TNI: 0.06 BNP: 3081.4 Past Med Surg Social Fam HX - Past Medical History Medical history: arthritis, atrial fibrillation, CHF, COPD, diabetes, GERD, hyperlipidemia, hypertension, osteoporosis, thyroid disease, other Psychiatric history: anxiety, depression - Past Surgical History Surgical History: appendectomy, cholecystectomy, knee replacement - Social History Smoking Status: Former smoker Smokeless Tobacco Status: No Alcohol use: occasionally Drug use: none - Family History Father Living Status: Hx Family Cardiac Disorders: Yes (heart murmur) Hx Family Neurologic Disorders: Yes (Dementia) Mother Adopted: No Family Member Ethnicity: Non- Living Status: Hx Family Cardiac Disorders: Yes (stroke) Hx Family Neuromuscular Disorders: Yes (Stroke at age 70s.) Hx Family Neurologic Disorders: Yes (seizures) Internal Medicine - H&P: Meds Albuterol Sulfate [Albuterol Inhaler] 2 puff IH Q4HR PRN 06/02/15 [History] Insulin ASPART [NovoLOG] 2 - 10 unit SQ TIDWM 06/02/15 [History] Levothyroxine [Synthroid] 50 mcg PO QAM 06/02/15 [History] Metoprolol [Lopressor] 25 mg PO BID 06/02/15 [History] Acetaminophen/Diphenhydramine [Acetaminophen Pm Caplet] 1 tab PO HS 01/12/16 [ History] Ipratropium/Albuterol Neb [Duoneb] 3 ml IH QID 03/15/16 [History] Amiodarone [Cordarone] 200 mg PO DAILY 09/16/16 [History] Pantoprazole Sodium [Protonix] 40 mg PO DAILY 09/16/16 [History] Pravastatin Sodium [Pravachol] 40 mg PO QPM 09/16/16 [History] Ferrous Sulfate [Iron] 325 mg PO QPM 10/13/16 [History] Lactobacillus [Culturelle] 1 cap PO BID 10/13/16 [History] Potassium Chloride [Klor-Con 10] 10 meq PO QAM 10/13/16 [History] Amoxicillin/Clavulanate [Augmentin] 875 mg PO BIDWM #5 tablet 10/17/16 [Rx] Aspirin Enteric Coated [Aspirin EC] 81 mg PO DAILY tablet. 10/17/16 [Rx] Doxycycline 100 mg PO BID #5 capsule 10/17/16 [Rx] Furosemide [Lasix] 40 mg PO BID #30 tablet 10/17/16 [Rx] HYDROcodone/Acet 5/325 mg [Rose[place] 5-325 mg] 1 tab PO QAM PRN #20 tablet 10/17/16 [Rx] Insulin NPH, HUMAN [HumuLIN N] 25 unit SQ HS [id number] 10/17/16 [Rx] Ipratropium/Albuterol Neb [Duoneb] 3 ml IH [id number] PRN #0 inhsol 10/17/16 [Rx] Allergies No Known Allergies Allergy (Verified 09/01/16 01:35) All Systems PM: A 10-system review of systems was performed and is negative for pertinent findings except as documented above in the HPI. - Constitutional Constitutional: as per HPI - Constitutional Vitals: Temp Pulse Resp BP Pulse Ox 96.6 F L 60 16 151/70 98 11/19/16 21:49 11/19/16 21:49 11/19/16 21:49 11/19/16 21:49 11/19/16 21:49 General appearance: Present: cooperative, A&O X 3, pleasant, no acute distress, obese, answers questions appropriately - Head Head exam: Present: atraumatic, normocephalic - Eye Eye exam: Present: normal appearance, conjuntiva pink, sclera anicteric - Respiratory Respiratory exam: Absent: respiratory distress, wheezes (bibasilar crackles) - Cardiovascular Cardiovascular exam: Present: RRR, +S1, +S2. Absent: diastolic murmur, gallop, rubs, systolic murmur - GI/Abdominal GI/Abdominal exam: Present: normal bowel sounds, soft, no peritoneal signs. Absent: distended, tenderness - Extremities Exam Extremities exam: Present: pedal edema (3+pitting edema in bilateral lower extremities, chronic venous stasis in b/l LE extremities ), warm, radial pulses palpable and symetrical. Absent: calf tenderness - Neurological Exam Neurological exam: Present: alert, oriented X3 - Psychiatric Psychiatric exam: Present: normal affect, normal mood
[2016-11-19] MEDS ORDERED: Insulin LISPRO 300 UNITS/3 ML VIAL SQ SCH (23:45)
[2016-11-20] MEDS: Furosemide 40 MG/4 ML VIAL IVP SCH ×2 (00:45→08:32)
[2016-11-20] MEDS ORDERED: *HR* Heparin 5,000 UNIT/ML VIAL SQ SCH (06:00)
[2016-11-20 06:17] LABS: Basophils % 0.5 %; Eosinophils # 0.2 K/mcL (0.0-0.6); Eosinophils % 1.8 %; Hematocrit 30.6 % (37.5-50.1); Hemoglobin 9.3 g/dL (12.9-16.9); Immature Granulocytes % 0.4 % (0-4); Mean Corpuscular HGB Conc 30.4 g/dL (31.6-35.5); Mean Corpuscular Hemoglobin 27.3 pg (28.0-33.3); Mean Corpuscular Volume 89.7 fL (83.0-100.0); Monocytes # 0.9 K/mcL (0.0-1.3); Monocytes % 10.7 %; Neutrophils # 6.3 K/mcL (1.6-8.9); Platelet Count 229 K/mcL (140-400); Red Blood Count 3.41 M/mcL (4.19-5.50); Red Cell Distribution Width 17.2 % (11.5-14.5); Segmented Neutrophils % 74.6 %
[2016-11-20 06:31] LABS: Calcium 9.1 mg/dL (8.6-10.8); Phosphorous 3.2 mg/dL (2.3-4.7); Potassium 4.1 mEq/L (3.5-4.5)
[2016-11-20] MEDS: Insulin LISPRO 300 UNITS/3 ML VIAL SQ SCH ×2 (08:51→13:08)
[2016-11-20] MEDS ORDERED: *HR* Amiodarone 200 MG TABLET PO SCH (09:00)
[2016-11-20] MEDS ORDERED: Aspirin 81 MG TAB.CHEW PO SCH (09:00)
--- NOTE | 2016-11-20 10:03 | Cardiology Consult Note ---
Date of Encounter: 11/20/16 Time of Encounter: 10:01 Assessment and Plan (1) Atypical chest pain Current Visit: Yes Status: Acute Small area of left sided tenderness. 5 minutes yesterday - reproducible with palpiation. Troponin chronically mildly elevated. No further testing appears necessary at this time. (2) A-fib Current Visit: No Status: Chronic History of AF on amiodarone/BB therapy Prior GI bleed, so now on aspirin therapy. Qualifiers: Atrial fibrillation type: chronic Qualified Code(s): I48.2 - Chronic atrial fibrillation (3) Aortic stenosis Current Visit: No Status: Chronic Moderate aortic stenosis. No new symptoms. Primary reason for visit was chest pain (as above). Outpatient monitoring of AV recommended. Continue aspirin/BB therapy. Qualifiers: Cardiac valve disease etiology: nonrheumatic Qualified Code(s): I35.0 - Nonrheumatic aortic (valve) stenosis (4) Diastolic heart failure Current Visit: Yes Status: Acute Chronic diastolic heart failure with chronic edema of LEs. Low sodium diet/fluid restriction. Continue diuretics. Elevate legs when able. Qualifiers: Heart failure chronicity: chronic Qualified Code(s): I50.32 - Chronic diastolic (congestive) heart failure Discussion w patient/family: The assessment and plan as outlined above was discussed with the patient and/or family members who expressed understanding and agreement. All questions were answered. Thank you for involving us in the care of your patient. Please call with any questions. History of Present Illness Consult date: 11/20/16 Requesting physician: Shankar Smith Consult reason: Aortic stenosis Chief complaint: Chest pain History of present illness: Mr. Pan is a 89 year old male who presented as a transfer re: chest pain. States sitting in chair when noticed left sided chest pain. Lasted 5 minutes, no radiation. Reports worse with palpation. No chest pain since this initial event. Chronically elevated troponin noted. Reports anxious to go home today. Known history of aortic stenosis. Recent report read as moderate to severe (MG 24 mmHg). Known diastolic HF with chronic LE edema. Past Med Surg Social Fam HX - Past Medical History Medical history: arthritis, atrial fibrillation, CHF, COPD, diabetes, GERD, hyperlipidemia, hypertension, osteoporosis, thyroid disease, other Psychiatric history: anxiety, depression - Past Surgical History Surgical History: appendectomy, cholecystectomy, knee replacement - Social History Smoking Status: Former smoker Smokeless Tobacco Status: No Alcohol use: occasionally Drug use: none - Family History Father Living Status: Hx Family Cardiac Disorders: Yes (heart murmur) Hx Family Neurologic Disorders: Yes (Dementia) Mother Adopted: No Family Member Ethnicity: Non- Living Status: Hx Family Cardiac Disorders: Yes (stroke) Hx Family Neuromuscular Disorders: Yes (Stroke at age 70s.) Hx Family Neurologic Disorders: Yes (seizures) Medications and Allergies Albuterol Sulfate [Albuterol Inhaler] 2 puff IH Q4HR PRN 06/02/15 [History] Insulin ASPART [NovoLOG] 2 - 10 unit SQ TIDWM 06/02/15 [History] Levothyroxine [Synthroid] 50 mcg PO QAM 06/02/15 [History] Metoprolol [Lopressor] 25 mg PO BID 06/02/15 [History] Acetaminophen/Diphenhydramine [Acetaminophen Pm Caplet] 1 tab PO HS 01/12/16 [ History] Ipratropium/Albuterol Neb [Duoneb] 3 ml IH QID 03/15/16 [History] Amiodarone [Cordarone] 200 mg PO DAILY 09/16/16 [History] Pantoprazole Sodium [Protonix] 40 mg PO DAILY 09/16/16 [History] Pravastatin Sodium [Pravachol] 40 mg PO QPM 09/16/16 [History] Ferrous Sulfate [Iron] 325 mg PO QPM 10/13/16 [History] Lactobacillus [Culturelle] 1 cap PO BID 10/13/16 [History] Potassium Chloride [Klor-Con 10] 10 meq PO QAM 10/13/16 [History] Amoxicillin/Clavulanate [Augmentin] 875 mg PO BIDWM #5 tablet 10/17/16 [Rx] Aspirin Enteric Coated [Aspirin EC] 81 mg PO DAILY tablet. 10/17/16 [Rx] Doxycycline 100 mg PO BID #5 capsule 10/17/16 [Rx] Furosemide [Lasix] 40 mg PO BID #30 tablet 10/17/16 [Rx] HYDROcodone/Acet 5/325 mg [[place] 5-325 mg] 1 tab PO QAM PRN #20 tablet 10/17/16 [Rx] Insulin NPH, HUMAN [HumuLIN N] 25 unit SQ HS [id number] 10/17/16 [Rx] Ipratropium/Albuterol Neb [Duoneb] 3 ml IH [id number] PRN #0 inhsol 10/17/16 [Rx] Allergies No Known Allergies Allergy (Verified 09/01/16 01:35) All Systems Review: A 10-system review of systems was performed and is negative for pertinent findings except as documented above in the HPI. - Cardiovascular Cardiovascular: as per HPI, leg edema - Musculoskeletal Musculoskeletal: abnormal gait Physical Examination Vital Signs, Last 4 Hours Temp Pulse Resp BP Pulse Ox 11/20/16 08:54 97 11/20/16 06:34 98.2 F 61 16 111/45 100 General: Conversant, No Apparent Distress, Other (Disheveled appearing) Neck: No JVD, Normal carotid pulses Cardiac: Other (Regular rate and rhythm, grade 2-3 true) Lungs: Normal Breath Sounds, No Wheeze, Rales, Rhonchi Neuro: Alert and responsive, No focal deficits noted Abdomen: Soft Skin: No rashes noted on visualized skin Musculoskeletal: No Chest Wall Tenderness Extremities: Other (Chronic edema of LE with skin thickening. ) Results 11/20/16 05:31 11/20/16 05:31 Lab Results 11/19/16 11/20/16 11/20/16 23:47 05:31 05:31 WBC 8.5 Hgb 9.3 L Hct 30.6 L Plt Count 229 Sodium Potassium Chloride Carbon Dioxide BUN Creatinine Glucose Calcium Magnesium Troponin I 0.09 H* 0.11 H* 11/20/16 05:31 WBC Hgb Hct Plt Count Sodium 138 Potassium 4.1 Chloride 102 Carbon Dioxide 28 BUN 36 H Creatinine 1.74 H Glucose 138 H Calcium 9.1 Magnesium 2.0 Troponin I - Imaging and Cardiology Echo: report reviewed Consult Discharge Plan - Plan Referrals: Alonzo Kuhn MD [Primary Care Provider] -
--- NOTE | 2016-11-20 10:51 | Discharge Summary ---
Date of Encounter: 11/20/16 Time of Encounter: 10:49 - Discharge Diagnosis (1) CHF exacerbation Priority: Primary Status: Acute Qualifiers: Congestive heart failure type: diastolic Qualified Code(s): 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 (2) [id number] kidney injury Priority: Secondary Status: Acute Qualifiers: Acute renal failure type: unspecified Chronic kidney disease stage: stage 3 (moderate) Qualified Code(s): N17.9 - Acute kidney failure, unspecified; N18.3 - Chronic kidney disease, stage 3 (moderate) (3) Atrial fibrillation Priority: Secondary Status: Chronic Qualifiers: Atrial fibrillation type: paroxysmal Qualified Code(s): I48.0 - Paroxysmal atrial fibrillation (4) Atypical chest pain Priority: Secondary Status: Acute (5) CAD (coronary artery disease) Priority: Secondary Status: Chronic Qualifiers: Coronary Disease-Associated Artery/Lesion type: [place] artery [place] vs. 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 (7) Elevated troponin Priority: Secondary Status: Chronic - Discharge Medications Home Medications: Albuterol Sulfate [Albuterol Inhaler] 2 puff IH Q4HR PRN 06/02/15 [History] Insulin ASPART [NovoLOG] 2 - 10 unit SQ TIDWM 06/02/15 [History] Levothyroxine [Synthroid] 50 mcg PO QAM 06/02/15 [History] Metoprolol [Lopressor] 25 mg PO BID 06/02/15 [History] Acetaminophen/Diphenhydramine [Acetaminophen Pm Caplet] 1 tab PO HS 01/12/16 [ History] Amiodarone [Cordarone] 200 mg PO DAILY 09/16/16 [History] Pantoprazole Sodium [Protonix] 40 mg PO DAILY 09/16/16 [History] Pravastatin Sodium [Pravachol] 40 mg PO QPM 09/16/16 [History] Ferrous Sulfate [Iron] 325 mg PO QPM 10/13/16 [History] Lactobacillus [Culturelle] 1 cap PO BID 10/13/16 [History] Potassium Chloride [Klor-Con 10] 10 meq PO QAM 10/13/16 [History] Aspirin Enteric Coated [Aspirin EC] 81 mg PO DAILY tablet. 10/17/16 [Rx] Furosemide [Lasix] 40 mg PO BID #30 tablet 10/17/16 [Rx] HYDROcodone/Acet 5/325 mg [[place] 5-325 mg] 1 tab PO QAM PRN #20 tablet 10/17/16 [Rx] Insulin NPH, HUMAN [HumuLIN N] 25 unit SQ HS [id number] 10/17/16 [Rx] Ipratropium/Albuterol Neb [Duoneb] 3 ml IH [id number] PRN #0 inhsol 10/17/16 [Rx] Calcitonin,[place],Synthetic [Calcitonin-[place]] 1 spray NS DAILY 11/20/16 [ History] Cholecalciferol (D-3) [Vitamin D] 2,000 unit PO DAILY 11/20/16 [History] Clotrimazole 1% CRM [Lotrimin 1%] 1 appl TP BID 11/20/16 [History] Allergies/Adverse Reactions: Allergies No Known Allergies Allergy (Verified 09/01/16 01:35) Date of admission: 11/19/16 21:11 Primary care physician: Alonzo Kuhn MD Consults: 11/20/16 02:47 Consult to Assignment Editor [CONS] Routine Reason for SW Consult: patient and spouse requesting homehealth to be set up for patient, spouse stated that she has tried to have homehealth set up but everytime they get started that he gets admitted in to the hospital again. 11/20/16 08:03 Consult to Cardiology [CONS] Routine Comment: Consulting Provider: Cardiology Anita Reason for Consult: MOderate to severe per Echo Time Notified: 08:04 Call Completed: Yes Discharging clinician: Shankar Smith Anticipated date of discharge: 11/20/16 - Patient Status Disposition: Home Health Service Condition: Fair Functional capacity at discharge: uses cane/walker Overall status at discharge: patient is progressing back to baseline - Discharge Instructions Instructions: Heart Failure (DC), Atrial Fibrillation (DC), Chest Pain (DC), Acute Kidney Injury (DC), Acute Kidney Injury (GEN), 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 Pan is a 89 year old male patient who has a history of chronic diastolic congestive heart failure, coronary artery disease, chronic kidney disease stage III was hospitalized here with acute CHF exacerbation after presenting to the ER with him plaints of shortness of breath. He was treated with IV Lasix and he is feeling much better now. He had good urine output -2 L fluid balance. He is eager to go home today as he has an appointment tomorrow for evaluation of his left wrist for carpal tunnel syndrome which he does not want to mess. Cardiology was consulted in his care and given that the patient has chronic and history of diastolic heart failure with improving symptoms recommend continued follow-up as outpatient. Patient also has moderate to severe aortic stenosis. Patient does have significant pedal edema and may benefit from continued intravenous Lasix. However he wishes to be discharged [place] not miss his appointment. As he is clinically stable, he will be discharged today on his usual medication regimen with no changes at this time. He is strongly advised to maintain strict fluid restriction to 1.5 L per day. Patient also presented with some left-sided chest pain which was reproducible. He has chronic elevation in troponins. His troponins were at baseline. - Time Spent with Patient Total time spent providing and/or coordinating discharge services: Less than 30 minutes (25 min) - Constitutional Vitals: Temp Pulse Resp BP Pulse Ox 98.2 F 61 16 111/45 97 11/20/16 06:34 11/20/16 06:34 11/20/16 06:34 11/20/16 06:34 11/20/16 08:54 General appearance: Present: cooperative, A&O X 3, pleasant, no acute distress, obese, answers questions appropriately - Neck Neck exam general surgery: Present: supple, trachea midline. Absent: lymphadenopathy - Respiratory Respiratory exam: Present: CTAB, prolonged expiratory phase. Absent: accessory muscle use, rales, rhonchi, wheezes - GI/Abdominal GI/Abdominal exam: Present: normal bowel sounds, soft, no peritoneal signs. Absent: distended, tenderness - Extremities Exam Extremities exam: Present: pedal edema (bilateral pitting ), warm, radial pulses palpable and symetrical. Absent: calf tenderness, cyanotic - Neurological Exam Neurological exam: Present: CN II-XII intact, oriented X3, no focal deficits, strengths equal and symetr throughout. Absent: facial droop, speech deficit - Skin Skin exam: Present: dry, intact Additional comments: Bilateral lower extremity stasis dermatitis
[2016-11-20 11:14] VITALS: BP 113/58
--- NOTE | 2016-11-20 13:52 | Physician Discharge Referral ---
Home Health/Hosp Referral Info Transfer to: Home Health Provider in Charge Post Discharge: PCP - Diagnosis (1) CHF exacerbation Priority: Primary Status: Acute (2) Qryca-wn-rndmywz kidney injury Priority: Secondary Status: Acute (3) Atrial fibrillation Priority: Secondary Status: Chronic (4) Atypical chest pain Priority: Secondary Status: Acute (5) CAD (coronary artery disease) Priority: Secondary Status: Chronic (6) Diabetes Priority: Secondary Status: Chronic (7) Elevated troponin Priority: Secondary Status: Chronic - Respiratory Orders Oxygen / L per min (keep sats >88%) Smoking Cessation: Smoking cessation has been advised. For more information, call the [place] Tobacco Quit Line at 5-090-PLAK-NOW. - Diet/Nutrition Diet/Nutrition Orders: Cardiac Diet/Nutrition: List: Fluid restriction to 1.5L/day - Activity Activity Orders: Walker - Services Needed Following services are medically necessary services: Nursing, Home Health Aide, Physical Therapy, Occupational Therapy - Transfer Medications Home Medications: Albuterol Sulfate [Albuterol Inhaler] 2 puff IH Q4HR PRN 06/02/15 [History] Insulin ASPART [NovoLOG] 2 - 10 unit SQ TIDWM 06/02/15 [History] Levothyroxine [Synthroid] 50 mcg PO QAM 06/02/15 [History] Metoprolol [Lopressor] 25 mg PO BID 06/02/15 [History] Acetaminophen/Diphenhydramine [Acetaminophen Pm Caplet] 1 tab PO HS 01/12/16 [ History] Amiodarone [Cordarone] 200 mg PO DAILY 09/16/16 [History] Pantoprazole Sodium [Protonix] 40 mg PO DAILY 09/16/16 [History] Pravastatin Sodium [Pravachol] 40 mg PO QPM 09/16/16 [History] Ferrous Sulfate [Iron] 325 mg PO QPM 10/13/16 [History] Lactobacillus [Culturelle] 1 cap PO BID 10/13/16 [History] Potassium Chloride [Klor-Con 10] 10 meq PO QAM 10/13/16 [History] Aspirin Enteric Coated [Aspirin EC] 81 mg PO DAILY tablet. 10/17/16 [Rx] Furosemide [Lasix] 40 mg PO BID #30 tablet 10/17/16 [Rx] HYDROcodone/Acet 5/325 mg [[place] 5-325 mg] 1 tab PO QAM PRN #20 tablet 10/17/16 [Rx] Insulin NPH, HUMAN [HumuLIN N] 25 unit SQ HS [id number] 10/17/16 [Rx] Ipratropium/Albuterol Neb [Duoneb] 3 ml IH [id number] PRN #0 inhsol 10/17/16 [Rx] Calcitonin,[place],Synthetic [Calcitonin-[place]] 1 spray NS DAILY 11/20/16 [ History] Cholecalciferol (D-3) [Vitamin D] 2,000 unit PO DAILY 11/20/16 [History] Clotrimazole 1% CRM [Lotrimin 1%] 1 appl TP BID 11/20/16 [History] Allergies/Adverse Reactions: Allergies No Known Allergies Allergy (Verified 09/01/16 01:35) Certification: Further, I certify that my clinical findings support that this patient is homebound (i.e. absences from home require considerable and taxing effort and are for medical reasons or congregational services or infrequently or short duration when for other reasons) because: Homebound Reason: Patient requires assistance of a person or device to safely leave home, Severity of cardiac or pulmonary status limits activity tolerance Attestation: My signature below is to certify that this patient is under my care and that I, or nurse practitioner, or a physician's front office assistant working with me, has a face-to -face encounter with this patient.
[2016-11-20] MEDS ORDERED: Insulin NPH 100 UNIT/ML (x5UNIT) SQ SCH ×2 (21:00)
== END 2016-11-20 14:48 | disposition home health service (06) ==
LOC: 2NENU → SUATTDRO 21:11
PROVIDERS: ADMIT Internal Medicine; ATTEND Internal Medicine